=== PATIENT | female | born 1950 | race Caucasian/White ===

== ENCOUNTER → 2016-06-06 | Outpatient (CLI) | payer OTHER ==
[~2016-06-06] MED LIST: AMX500 PO; ATEN-173 PO; CLTP PO; LRT5 PO; MULT-506 PO; OMEG10007 PO; PXL20 PO
== END | disposition home or self-care (01) ==
LOC: C.LABSPEC 15:35
PROVIDERS: ATTEND Podiatrist
DX: L60.0 Ingrowing nail (principal)

== ENCOUNTER → 2016-06-09 | Outpatient (CLI) | payer OTHER ==
[2016-06-09 14:32] LABS: BLOOD UREA NITROGEN 12 mg/dl (7-18); BUN/CREATININE RATIO 15.2 (10-20); CALCIUM 8.4 mg/dl (8.5-10.1); CARBON DIOXIDE 28 mmol/L (21-32); CHLORIDE 104 mmol/L (98-107); CHOLESTEROL 272 mg/dl (0-200); CREATININE 0.77 mg/dl (0.60-1.20); GLUCOSE 102 mg/dl (70-99); SODIUM 140 mmol/L (136-145); TRIGLYCERIDES 213 mg/dl (0-150); VERY LOW DENSITY LIPOPROT CALC 43 mg/dl
[2016-06-09 14:37] LABS: CHOLESTEROL/HDL RATIO 3.5; HDL CHOLESTEROL 78 mg/dl; LDL CHOLESTEROL CALCULATED 151 mg/dl
== END | disposition home or self-care (01) ==
LOC: C.LABPVFM 07:48
PROVIDERS: ATTEND Nurse Practitioner
DX: I10 Essential (primary) hypertension (principal); E78.5 Hyperlipidemia, unspecified

== ENCOUNTER → 2016-07-16 | Outpatient (CLI) | payer OTHER ==
[2016-07-16 17:50] LABS: HEMATOCRIT 39.2 % (37-47); MEAN CELL VOLUME 96.8 fL (80-100); MEAN CORPUSCULAR HEMOGLOBIN 31.6 pg (25-34); MEAN CORPUSCULAR HGB CONC 32.7 g/dl (32-36); MEAN PLATELET VOLUME 10.7 fL (7.4-10.4); PLATELET COUNT 290 K/uL (130-400); RED BLOOD COUNT 4.05 M/uL (4.2-5.4); WHITE BLOOD COUNT 9.67 K/uL (4.8-10.8)
== END | disposition home or self-care (01) ==
LOC: C.LABPVFM 13:40
PROVIDERS: ATTEND Family Medicine
DX: J01.90 Acute sinusitis, unspecified (principal); Z11.59 Encounter for screening for other viral diseases

== ENCOUNTER → 2016-07-28 | Outpatient (CLI) | payer OTHER ==
--- NOTE | 2016-07-28 14:28 | MAMMOGRAPHY REPORT ---
BILATERAL DIGITAL SCREENING MAMMOGRAM WITH CAD: 07/28/2016 CLINICAL HISTORY: Routine screening examination. TECHNIQUE: Bilateral CC, MLO and repeat CC views with the nipples in profile were obtained. Current study was also evaluated with a Computer Aided Detection (CAD) system. COMPARISON: Comparison is made to exams dated: 07/26/2015 mammogram, 01/26/2013 mammogram, 05/01/2014 mammogram, 11/10/2011 mammogram, 08/12/2010 mammogram, and 07/23/2009 mammogram - [facility]. BREAST COMPOSITION: The tissue of both breasts is almost entirely fatty. FINDINGS: There is a possible cluster of linear microcalcifications in the medial left breast. [place] these could represent secretory calcifications, additional spot magnification views are recomm ended. An asymmetry in the anterior right breast, 4 cm posterior to the nipple on the MLO view coul d represent normal overlapping tissue. However, an additional spot compression tomosynthesis view w ith possible ultrasound is recommended. There are a few other scattered stable benign-appearing microcalcifications bilaterally. No other s uspicious mass, architectural distortion or cluster of microcalcifications is seen. IMPRESSION: ACR BI-RADS CATEGORY 0: INCOMPLETE EVALUATION: NEED ADDITIONAL IMAGING EVALUATION The possible cluster of microcalcifications in the medial left breast, and right breast asymmetry ne ed additional imaging evaluation. The patient will be called to schedule an appointment. Approximately 10% of breast cancers are not detected with mammography. A negative mammographic repor t should not delay biopsy if a clinically suggestive mass is present. Laurie Martínez M.D. ay/:07/28/2016 13:41:56 Continuous Improvement Coach: Lary SULTANA(Chong)(M), [facility] letter sent: Addl Imaging 0 BI-RADS Code: ACR BI-RADS Category 0: Incomplete Evaluation: Need Additional Imaging Evaluation
== END | disposition home or self-care (01) ==
LOC: C.MAMM 09:54
PROVIDERS: ATTEND Family Medicine
DX: Z12.31 Encounter for screening mammogram for malignant neoplasm of breast (principal); N64.9 Disorder of breast, unspecified

== ENCOUNTER → 2016-08-05 | Outpatient (CLI) | payer OTHER ==
--- NOTE | 2016-08-05 15:44 | MAMMOGRAPHY REPORT ---
BILATERAL DIGITAL DIAGNOSTIC MAMMOGRAM TOMOSYNTHESIS: 08/05/2016 CLINICAL HISTORY: 66-year-old woman called back from screening mammography for possible architectura l distortion in the right breast on the MLO view, and a possible cluster of microcalcifications in t he medial left breast. TECHNIQUE: Left spot magnification CC and ML; right spot compression MLO 2-D digital and tomosynthes is images were obtained. COMPARISON: Comparison is made to exams dated: 07/28/2016 mammogram, 07/26/2015 mammogram, 05/01/2014 mammogram, 01/26/2013 mammogram, 11/10/2011 mammogram, and 08/12/2010 mammogram - [facility]. BREAST COMPOSITION: The tissue of both breasts is almost entirely fatty. FINDINGS: There is effacement of the questionable architectural distortion in the anterior right eric ast, along the posterior nipple line on the MLO view. This most likely represented a combination of a coursing vessel and fibrolinear markings. Spot magnification views of the left breast demonstrat e a small grouping of linear microcalcifications in the upper inner middle one third of the breast m easuring 6 mm. These calcifications have a rodlike configuration and most likely represent secretor y calcifications on the given that a few other scattered rodlike calcifications are present in the l eft breast. However, given the possible increased number of calcifications in this grouping compari ng back to 2010, a short interval follow-up exam including repeat spot magnification views is recomm ended to ensure stability in 6 months. IMPRESSION: ACR-BI-RADS CATEGORY 3: PROBABLY BENIGN 1. A short interval follow-up left mammogram including repeat spot magnification views is recommend ed to ensure stability of a probable grouping of secretory calcifications in the upper inner quadran t of the left breast. 2. Questionable architectural distortion in the right anterior breast effaces with additional mammo graphic views including tomosynthesis images and most likely represented overlapping fibrolinear mar kings. No further follow-up is needed at this time. These results and recommendations were discussed with the patient and her daughter at the time of th e exam. She tentatively scheduled a follow-up appointment prior to leaving our department. Approximately 10% of breast cancers are not detected with mammography. A negative mammographic repor t should not delay biopsy if a clinically suggestive mass is present. Laurie Martínez M.D. ay/:08/05/2016 14:35:45 Tdp Displays Analyst: Lary Dent, [facility] letter sent: Follow Up Recommended 3 BI-RADS Code: ACR-BI-RADS Category 3: Probably Benign
== END | disposition home or self-care (01) ==
LOC: C.MAMM 12:47
PROVIDERS: ATTEND Family Medicine
DX: R92.0 Mammographic microcalcification found on diagnostic imaging of breast (principal); N64.89 Other specified disorders of breast

== ENCOUNTER → 2016-10-18 | Outpatient (CLI) | payer OTHER ==
[2016-10-18 13:09] LABS: CHOLESTEROL/HDL RATIO 3.3
== END | disposition home or self-care (01) ==
LOC: C.LABPVFM 07:58
PROVIDERS: ATTEND Family Medicine
DX: E78.5 Hyperlipidemia, unspecified (principal)

== ENCOUNTER → 2017-02-04 | Outpatient (CLI) | payer OTHER ==
--- NOTE | 2017-02-04 13:16 | MAMMOGRAPHY REPORT ---
UNILATERAL LEFT DIGITAL DIAGNOSTIC MAMMOGRAM TOMOSYNTHESIS WITH CAD: 02/04/2017 CLINICAL HISTORY: Six-month follow-up of left breast calcifications. TECHNIQUE: Breast tomosynthesis in addition to standard 2D mammography was performed. Current study was also evaluated with a Computer Aided Detection (CAD) system. Left CC and MLO 2-D and tomosynthes is images and spot magnification left CC and ML views were obtained. COMPARISON: Comparison is made to exams dated: 08/05/2016 mammogram, 07/28/2016 mammogram, 07/26/2015 ma mmogram, 05/01/2014 mammogram, 01/26/2013 mammogram, and 11/10/2011 mammogram - [facility]ter. BREAST COMPOSITION: The tissue of the left breast is almost entirely fatty. FINDINGS: Spot magnification views of the left breast demonstrate a small group of rodlike calcifica tions in the left medial breast middle depth. The calcifications are stable compared to spot magnifi cation views dated 08/05/2016 and in retrospect were present on prior exams including the 2013 exam. T he calcifications are benign and compatible with secretory calcifications. The remainder of the left breast is stable compared to prior exams, without suspicious masses, calcif ications, or areas of architectural distortion noted. IMPRESSION: ACR BI-RADS CATEGORY 2: BENIGN The grouped calcifications in the left medial breast are stable compared to the August 2016 exam and a re benign and compatible with secretory calcifications. There is no mammographic evidence of maligna ncy. Return to annual mammogram screening schedule is recommended, due July 2017. The patient has b een verbally notified of the results. Approximately 10% of breast cancers are not detected with mammography. A negative mammographic report should not delay biopsy if a clinically suggestive mass is present. Stephanie Carvajal M.D. ah/:02/04/2017 10:19:43 Hotel Valet Attendant: Mara DEGROOT)(Christina), [facility] letter sent: Normal 1/2 BI-RADS Code: ACR BI-RADS Category 2: Benign
== END | disposition home or self-care (01) ==
LOC: C.MAMM 09:10
PROVIDERS: ATTEND Family Medicine

== ENCOUNTER → 2017-04-29 | Outpatient (CLI) | payer OTHER ==
[2017-04-29 12:40] LABS: BASO % 0.4 %; BASO ABS # 0.03 K/uL (0-0.2); EOS % 2.1 %; EOS ABS # 0.16 K/uL (0-0.5); HEMATOCRIT 39.7 % (37-47); HEMOGLOBIN 12.8 g/dL (12.0-16.0); IG# 0.02 K/uL (0.00-0.02); LYMPH % 28.6 %; LYMPH ABS # 2.14 K/uL (1.2-3.4); MEAN CELL VOLUME 96.6 fL (80-100); MEAN CORPUSCULAR HEMOGLOBIN 31.1 pg (25-34); MEAN CORPUSCULAR HGB CONC 32.2 g/dl (32-36); MEAN PLATELET VOLUME 10.8 fL (7.4-10.4); MONO ABS # 0.45 K/uL (0.11-0.59); NEUT % 62.6 %; NEUT ABS # 4.69 K/uL (1.4-6.5); PLATELET COUNT 283 K/uL (130-400); RED CELL DISTRIBUTION WIDTH CV 13.9 % (11.5-14.5); RED CELL DISTRIBUTION WIDTH SD 48.8 fL (36.4-46.3); WHITE BLOOD COUNT 7.49 K/uL (4.8-10.8)
[2017-04-29 12:45] LABS: ALBUMIN 3.4 gm/dl (3.4-5.0); ALT/SGPT 23 U/L (12-78); BLOOD UREA NITROGEN 12 mg/dl (7-18); CALCIUM 8.6 mg/dl (8.5-10.1); CARBON DIOXIDE 30 mmol/L (21-32); CHOLESTEROL 243 mg/dl (0-200); CREATININE 0.64 mg/dl (0.60-1.20); GLUCOSE 98 mg/dl (70-99); POTASSIUM 3.9 mmol/L (3.5-5.1); SODIUM 139 mmol/L (136-145)
[2017-04-29 12:48] LABS: ALKALINE PHOSPHATASE 70 U/L (45-117); AST/SGOT 16 U/L (15-37); LDL CHOLESTEROL CALCULATED 138 mg/dl; TOTAL PROTEIN 6.9 gm/dl (6.4-8.2)
== END | disposition home or self-care (01) ==
LOC: C.LABPVFM 08:11
PROVIDERS: ATTEND Family Medicine
DX: E78.5 Hyperlipidemia, unspecified (principal); I10 Essential (primary) hypertension

== ENCOUNTER → 2017-05-01 | Outpatient (CLI) | payer OTHER | END | disposition home or self-care (01) | LOC: C.LABPVFM 10:21 | PROVIDERS: ATTEND Family Medicine | DX: M85.80 Other specified disorders of bone density and structure, unspecified site (principal) ==

== ENCOUNTER → 2017-08-12 | Outpatient (CLI) | payer OTHER ==
--- NOTE | 2017-08-13 07:56 | MAMMOGRAPHY REPORT ---
BILATERAL DIGITAL SCREENING MAMMOGRAM TOMOSYNTHESIS WITH CAD: 08/12/2017 CLINICAL HISTORY: Routine screening. Patient has no complaints. TECHNIQUE: Breast tomosynthesis in addition to standard 2D mammography was performed. Current study was also evaluated with a Computer Aided Detection (CAD) system. COMPARISON: Comparison is made to exams dated: 02/04/2017 mammogram, 08/05/2016 mammogram, 07/28/2016 ma mmogram, 07/26/2015 mammogram, 05/01/2014 mammogram, and 01/26/2013 mammogram - [facility] enter. BREAST COMPOSITION: The tissue of both breasts is almost entirely fatty. FINDINGS: There are stable rodlike calcifications in the left breast, in particular a stable grouping of rodlike probable secretory calcifications in the medial left breast. No new suspicious mass, arc hitectural distortion or cluster of microcalcifications is seen. IMPRESSION: ACR BI-RADS CATEGORY 1: NEGATIVE There is no mammographic evidence of malignancy. A 1 year screening mammogram is recommended. The pa tient will receive written notification of the results. Approximately 10% of breast cancers are not detected with mammography. A negative mammographic report should not delay biopsy if a clinically suggestive mass is present. Laurie Martínez M.D. ay/:08/12/2017 15:55:48 Dust Collector Ore Crushing: Lary DEGROOT)(M), [facility] letter sent: Normal 1/2 BI-RADS Code: ACR BI-RADS Category 1: Negative
== END | disposition home or self-care (01) ==
LOC: C.MAMM 15:02
PROVIDERS: ATTEND Family Medicine
DX: Z12.31 Encounter for screening mammogram for malignant neoplasm of breast (principal)

== ENCOUNTER → 2017-09-17 | Outpatient (CLI) | payer OTHER ==
[2017-09-17 12:40] LABS: BASO % 0.4 %; BASO ABS # 0.03 K/uL (0-0.2); EOS % 2.4 %; EOS ABS # 0.16 K/uL (0-0.5); HEMATOCRIT 41.1 % (37-47); HEMOGLOBIN 13.3 g/dL (12.0-16.0); IG# 0.01 K/uL (0.00-0.02); LYMPH ABS # 1.94 K/uL (1.2-3.4); MEAN CELL VOLUME 96.3 fL (80-100); MEAN CORPUSCULAR HEMOGLOBIN 31.1 pg (25-34); MEAN CORPUSCULAR HGB CONC 32.4 g/dl (32-36); MEAN PLATELET VOLUME 10.3 fL (7.4-10.4); MONO ABS # 0.47 K/uL (0.11-0.59); NEUT % 61.1 %; NEUT ABS # 4.08 K/uL (1.4-6.5); PLATELET COUNT 273 K/uL (130-400); RED CELL DISTRIBUTION WIDTH CV 13.6 % (11.5-14.5); RED CELL DISTRIBUTION WIDTH SD 47.8 fL (36.4-46.3); WHITE BLOOD COUNT 6.69 K/uL (4.8-10.8)
[2017-09-17 13:17] LABS: ALBUMIN 3.4 gm/dl (3.4-5.0); ALKALINE PHOSPHATASE 66 U/L (45-117); ALT/SGPT 23 U/L (12-78); AST/SGOT 15 U/L (15-37); BLOOD UREA NITROGEN 14 mg/dl (7-18); CALCIUM 8.4 mg/dl (8.5-10.1); CARBON DIOXIDE 29 mmol/L (21-32); CHOLESTEROL 214 mg/dl (0-200); CREATININE 0.79 mg/dl (0.60-1.20); GLUCOSE 103 mg/dl (70-99); LDL CHOLESTEROL CALCULATED 122 mg/dl; POTASSIUM 4.1 mmol/L (3.5-5.1); SODIUM 139 mmol/L (136-145); TOTAL PROTEIN 7.2 gm/dl (6.4-8.2)
== END | disposition home or self-care (01) ==
LOC: C.LABPVFM 07:39
PROVIDERS: ATTEND Family Medicine
DX: M85.80 Other specified disorders of bone density and structure, unspecified site (principal)

== ENCOUNTER → 2017-09-18 | Outpatient (CLI) | payer OTHER ==
--- NOTE | 2017-09-18 11:12 | DIAGNOSTIC IMAGING REPORT ---
R KNEE 1 OR 2 VIEWS ROUTINE HISTORY: 67 years-old Female RIGHT KNEE PAIN acute right knee pain and swelling COMPARISON: Right knee radiographs 07/18/2015 TECHNIQUE: 2 views of the right knee FINDINGS: Trace knee joint effusion. Bones appear mildly demineralized. Mild tricompartmental osteoarthritis redemonstrated with spurring along the superior patella at the quadriceps insertion site. Mild soft tissue swelling circumferentially without opaque foreign body. IMPRESSION: Mild soft tissue swelling and small joint effusion without acute fracture. The above report was generated using voice recognition software. It may contain grammatical, syntax or spelling errors. Electronically signed by: Da Franklin M.D. 09/18/2017 11:11 AM Dictated Date/Time: 09/18/2017 11:10 AM
== END | disposition home or self-care (01) ==
LOC: C.RADPV 10:45
PROVIDERS: ATTEND Family Medicine
DX: M25.561 Pain in right knee (principal); M25.461 Effusion, right knee

== ENCOUNTER 2022-07-29 23:33 | Inpatient (IN) ==
--- NOTE | 2022-07-29 23:59 | Emergency Department Note ---
History of Present Illness General Chief complaint: Syncope History of Present Illness 72-year-old female presents emergency department via EMS reportedly was taking a bath she stood up and she vomited and then reportedly had a syncopal episode. Patient of note received an IV infusion of platelets today. Patient has a history of chemotherapy for uterine cancer and had low platelets. Patient was given IV platelets. Patient states that the bathtub was not significantly warm. Patient denies chest pain shortness of breath or abdominal pain prior to this event. There were no other mitigating or alleviating factors. She did not hit her head. Home Medications Medication Instructions Recorded Confirmed Type cholecalciferol (vitamin D3) 25 1,000 units PO QPM 11/09/18 07/30/22 History mcg (1,000 unit) capsule calcium carbonate 600 mg calcium 600 mg PO BIDM 02/08/19 07/30/22 History (1,500 mg) tablet digestive no.8-L.acidophilus 50 1 tab PO QPM 06/10/19 07/30/22 History million cell-pectin 100 mg tablet (Digestive Enzyme (acidophilus, pectin, bromelain)) atenolol 25 mg tablet 25 mg PO HS #90 tabs 08/26/21 07/30/22 Rx magnesium oxide 800 mg PO QAM 01/28/22 07/30/22 History fluticasone propionate 50 2 spray intranasal HS #48 grams 02/14/22 07/30/22 Rx mcg/actuation nasal spray,suspension paroxetine HCl 10 mg tablet (Paxil) 10 mg PO QDB #90 tabs 04/08/22 07/30/22 Rx atorvastatin 20 mg tablet 20 mg PO HS #90 tabs 04/29/22 07/30/22 Rx cyanocobalamin (vitamin B-12) 1,000 mcg PO DAILY 06/26/22 07/30/22 History 1,000 mcg tablet (Vitamin B-12) folic acid 400 mcg tablet 0.4 mg PO QPM 06/26/22 07/30/22 History loratadine 10 mg tablet (Claritin) 10 mg PO UD PRN Allergy Symptoms 06/26/22 07/30/22 History omeprazole 20 mg capsule,delayed 20 mg PO QAM 06/26/22 07/30/22 History release acetaminophen 325 mg capsule 325 mg PO QID PRN Pain 07/14/22 07/30/22 History (Tylenol) ondansetron HCl 8 mg tablet 8 mg PO Q8H PRN Nausea 07/29/22 07/30/22 History Allergies Allergy/AdvReac Type Severity Reaction Status Date / Time adhesive tape Allergy Intermediate localized Verified 07/29/22 13:00 skin reddness/irritation latex Allergy Intermediate localized Verified 07/29/22 13:00 skin reddness/irritation aspirin Allergy Mild facial Verified 07/29/22 13:00 flushing ciprofloxacin Allergy Unknown Rash Verified 07/29/22 13:00 Past Med/Surg History Medical History Anxiety Chronic interstitial cystitis Depression GERD (gastroesophageal reflux disease) History of DVT of lower extremity left leg History of endometrial cancer Hx of basal cell carcinoma Hyperlipidemia Hypertension Nausea and vomiting after administration of anesthetic agent Osteopenia Seasonal allergies 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 still inplace. will bring card for current port DOS. Hx of basal cell carcinoma excision Hx of tonsillectomy Port-A-Cath in place (07/02/22) Insertion of Right Internal Jugular Access Port with Fluoroscopy(Right) - Martin Clark DO, FACS Family History Mother Hypertension Malignant neoplasm of urinary bladder Denies family history of Ovarian cancer Prostate cancer Myocardial infarction Breast cancer Colorectal cancer Social History Smoking Status: Former smoker Tobacco Type: Cigarettes Age Started Using Tobacco: 20; Age Quit Using Tobacco: 22; packs per day: 0.5; Cigarettes Per Day: 10 or less; Second Hand Exposure: No; Hx Alcohol Use: Yes (social) Alcohol type: wine Alcohol Intake Frequency: Monthly or Less Hx Substance Use: No Preferred Language: [place]al[place] Communication Ability: Effective Visual Impairment: No Limitations Hearing Ability: Normal Yarn Tester Required: No Beliefs That Will Affect Care: None marital status: Current Living Situation: Family Current Living Situation Comment: DAUGHTER current occupational status: retired How many Children do You have: 2 Feels Safe at Home: Yes Childhood Exposure to Second-Hand Smoke: Yes caffeine: Yes during the past year weight has: remained stable Dental Care, Regularly: Yes Physical Activity Frequency: 3-4 Times per Week Seatbelt Use: always Sunscreen Use: Yes Assistive Devices: Glasses Review of Systems A total of 10 systems reviewed and were otherwise negative Cardiovascular: no chest pain Gastrointestinal: + vomiting; no abdominal pain Physical Exam Vital Signs Vital Signs - 24 hr 07/29/22 23:40 07/29/22 23:48 07/30/22 00:20 Temperature 36.4 C L Temperature Source Oral Pulse Rate 66 64 Pulse Rate from SpO2 Sensor Respiratory Rate 20 Respiratory Effort / Characteristics Non-Labored Spontaneous Respiratory Depth Normal Blood Pressure 136/79 Blood Pressure Mean 98 Pulse Oximetry 100 100 Oxygen Delivery Method Room Air Room Air Sepsis Recent Fever Within 48 Hours No Sepsis New/Unexplained Change in Mental Status No Sepsis Action Taken by Nursing No Action Required 07/29/22 23:41 07/30/22 02:00 Temperature Temperature Source Pulse Rate 66 66 Pulse Rate from SpO2 Sensor 66 64 Respiratory Rate 22 17 Respiratory Effort / Characteristics Respiratory Depth Blood Pressure 156/79 H 170/85 H Blood Pressure Mean 104 113 Pulse Oximetry 100 100 Oxygen Delivery Method Sepsis Recent Fever Within 48 Hours Sepsis New/Unexplained Change in Mental Status Sepsis Action Taken by Nursing GENERAL: Patient is awake alert in no acute distress patient is resting comfortably and showing no signs of anxiety EYES: The conjunctivae are clear. The pupils are round and reactive. EARS, NOSE, MOUTH AND THROAT: The nose is without any evidence of any deformity. Mucous membranes are moist. Tongue is midline. NECK: The neck is nontender and supple. RESPIRATORY: Normal respiratory effort is noted there is no evidence of wheezing rhonchi or rales CARDIOVASCULAR: Regular rate and rhythm noted there no murmurs rubs or gallops normal S1 normal S2. GASTROINTESTINAL: The abdomen is soft. Abdomen is nontender. BACK: No midline tenderness or or step-off noted range of motion in flexion extension as well as rotation no signs of muscle spasm noted MUSCULOSKELETAL/EXTREMITIES: There is no evidence of gross deformity full range of motion is noted in the hips and shoulders. SKIN: There is no obvious evidence of any rash. There are no petechiae, pallor or cyanosis noted. NEUROLOGIC: Patient is awake alert and oriented x3 strength is symmetric; GCS of 15, nonfocal Course Reevaluation(s) Reevaluation #1: Patient is resting no distress on repeat examination. Patient will be admitted for syncope Time: 03:06 Consultations Consultation #1: Case was discussed with the [facility] for admission for syncope Time: 03:06 Medical Decision Making Medical Records Attestation: I reviewed the patient's medical records. Home Medications Current Medication List: was personally reviewed by me Laboratory Data Attestation: I reviewed the patient's lab results. Patient is pancytopenic 07/30/22 00:18 07/30/22 00:18 Lab Results 07/30/22 07/30/22 07/30/22 Range/Units 00:18 00:18 01:55 WBC 4.01 L (4.8-10.8) K/ul RBC 2.36 L (4.20-5.40) M/uL Hgb 7.6 L (12.0-16.0) g/dl Hct 23.0 L (37.0-47.0) % MCV 97.5 (80.0-100.0) fL MCH 32.2 (25.0-34.0) pg MCHC 33.0 (32.0-36.0) g/dL RDW Std Deviation 42.5 (36.4-46.3) fL RDW Coeff of Elie 12.0 (11.5-14.5) % Plt Count 23 L* D (130-400) K/uL MPV 10.4 (9.4-12.4) fL Immature Gran % (Auto) 1.5 % Neut % (Auto) 54.4 % Lymph % (Auto) 35.9 % [place] % (Auto) 5.5 % Eos % (Auto) 2.2 % Baso % (Auto) 0.5 % Neut # (Auto) 2.18 (1.40-6.50) K/uL Lymph # (Auto) 1.44 (1.2-3.4) K/uL [place] # (Auto) 0.22 (0.11-0.59) K/uL Eos # (Auto) 0.09 (0-0.50) K/uL Baso # (Auto) 0.02 (0-0.2) K/uL Immature Gran # (Auto) 0.06 (0.01-0.20) K/uL Absolute Nucleated RBC 0.03 (0-0.12) K/uL Nucleated RBC % (auto) 0.7 % Dohle Bodies 1+ Sodium 138 (136-145) mmol/L Potassium 3.6 (3.5-5.1) mmol/L Chloride 102 (98-107) mmol/L Carbon Dioxide 27 (21-32) mmol/L Anion Gap 9 (3-11) BUN 30 H (6-23) mg/dl Creatinine 1.17 (0.6-1.2) mg/dl Est Cr Clr Drug Dosing 44.0 ml/min Est GFR ( Amer) 53.9 ml/min Est GFR (Non-Af Amer) 46.5 ml/min BUN/Creatinine Ratio 25.6 H (10-20) Glucose 96 (70-99(Fasting)) mg/dl Calcium 8.4 L (8.6-10.3) mg/dl Magnesium 1.3 L (1.7-2.4) mg/dl Total Bilirubin 0.3 (0.2-1.0) mg/dl AST 22 (13-39) U/L ALT 65 H (7-52) U/L Alkaline Phosphatase 86 (34-104) U/L Total Protein 6.4 (6.0-8.3) gm/dl Albumin 3.5 (3.4-5.0) gm/dl Globulin 2.9 (2.5-4.0) gm/dl Albumin/Globulin Ratio 1.2 (0.9-2) SARS-CoV-2, RNA, NAAT NEGATIVE (NEGATIVE) Imaging Data Attestation: I personally reviewed and interpreted this imaging study as follows: My Impression: CT of the brain interpreted by me as negative for intracranial hemorrhage Radiologist's Impression: Head CT 07/29/22 23:55 Exam(s): CT HEAD Without Contrast EXAM: CT Head Without Intravenous Contrast CLINICAL HISTORY: Reason for exam: syncope. TECHNIQUE: Axial computed tomography images of the head/brain without intravenous contrast. Automated exposure control was utilized for the study. A dose lowering technique was utilized adhering to the principles of ALARA. COMPARISON: No relevant prior studies available. FINDINGS: Brain: The cerebral and cerebellar sulci are mildly prominent consistent with mild brain atrophy. There are a few areas of decreased attenuation in the deep cerebral white matter consistent with mild small vessel ischemic/degenerative changes. No hemorrhage. Ventricles: Unremarkable. No ventriculomegaly. Bones/joints: Unremarkable. No acute fracture. Soft tissues: Right prefrontal dermal calcification. Vasculature: Atherosclerotic disease. Sinuses: Unremarkable as visualized. No acute sinusitis. Mastoid air cells: Unremarkable as visualized. No mastoid effusion. IMPRESSION: No acute findings in the head/brain. Electronically signed by: Chandu Gil MD 07/30/22 01:15 AM ECG Data Attestation: I personally reviewed and interpreted this ECG as follows: Additional Comments: EKG interpreted by me normal sinus rhythm versus atrial fibrillation rate of 73 poor R wave progression in precordial poor baseline no obvious ST segment elevation or depression normal axis Telemetry was ordered by me, interpreted as sinus rhythm rate of 70 MDM Narrative Medical decision making differential diagnosis includes syncope, near syncope, c ardiac dysrhythmia, anemia, electrolyte abnormality, neurogenic syncope Plan is to check labs, EKG, CT EMS medical records were reviewed by me External medical records were reviewed by me Patient has pancytopenia, patient has syncope tonight. Patient will be admitted for further evaluation of syncope and pancytopenia Impression & Plan Syncope, Anemia, Thrombocytopenia Discharge Plan Visit Data Chief Complaint: Syncope ED Provider: Martin Villalobos Discharge Problem: Syncope, Anemia, Thrombocytopenia Patient Disposition: Admitted As Inpatient Forms Stand Alone Forms: My [facility] Prescriptions Prescriptions: No Action cholecalciferol (vitamin D3) 1,000 unit capsule 1,000 units PO QPM atenolol 25 mg tablet 25 mg PO HS Qty: 90 3RF fluticasone propionate 50 mcg/actuation spray,suspension 2 spray INTNAS HS Qty: 48 3RF paroxetine HCl [Paxil] 10 mg tablet 10 mg PO QDB Qty: 90 3RF atorvastatin 20 mg tablet 20 mg PO HS Qty: 90 3RF magnesium oxide 400 mg magnesium capsule 800 mg PO QAM acetaminophen [Tylenol] 325 mg capsule 325 mg PO QID PRN (Reason: Pain) calcium carbonate 600 mg calcium (1,500 mg) tablet 600 mg PO BIDM Digestive Enzyme (acidoph,pec) 50 million cell-100 mg Tablet 1 tab PO QPM ondansetron HCl [Zofran] 8 mg Tablet 8 mg PO Q8H PRN (Reason: Nausea) cyanocobalamin (vitamin B-12) [Vitamin B-12] 1,000 mcg Tablet 1,000 mcg PO DAILY folic acid 400 mcg Tablet 0.4 mg PO QPM omeprazole 20 mg capsule,delayed release(DR/EC) 20 mg PO QAM loratadine [Claritin] 10 mg Tablet 10 mg PO UD PRN (Reason: Allergy Symptoms) Referrals Referrals: Kasey Mendez MD [Primary Care Provider] -
[2022-07-30 00:56] LABS: Albumin Globulin Ratio 1.2 (0.9-2); Albumin Level 3.5 gm/dl (3.4-5.0); BUN Creatinine Ratio 25.6 (10-20); Bilirubin,Total 0.3 mg/dl (0.2-1.0); Calcium 8.4 mg/dl (8.6-10.3); Est GFR (African American) 53.9 ml/min; Est GFR (Non-African American) 46.5 ml/min; Globulin 2.9 gm/dl (2.5-4.0); Magnesium 1.3 mg/dl (1.7-2.4); Potassium 3.6 mmol/L (3.5-5.1); Total Protein 6.4 gm/dl (6.0-8.3)
[2022-07-30 01:07] LABS: Basophils # (auto) 0.02 K/uL (0-0.2); Basophils % (auto) 0.5 %; Dohle Bodies 1+; Eosinophils # (auto) 0.09 K/uL (0-0.50); Eosinophils % (auto) 2.2 %; Hemoglobin 7.6 g/dl (12.0-16.0); Immature Granulocytes # (auto) 0.06 K/uL (0.01-0.20); Immature Granulocytes % (auto) 1.5 %; Lymphocytes # (auto) 1.44 K/uL (1.2-3.4); Lymphocytes % (auto) 35.9 %; Mean Corpuscular Hemoglobin 32.2 pg (25.0-34.0); Mean Corpuscular Volume 97.5 fL (80.0-100.0); Mean Platelet Volume 10.4 fL (9.4-12.4); Monocytes # (auto) 0.22 K/uL (0.11-0.59); Monocytes % (auto) 5.5 %; Neutrophils # (auto) 2.18 K/uL (1.40-6.50); Neutrophils % (auto) 54.4 %; Nucleated RBC # (auto) 0.03 K/uL (0-0.12); Nucleated RBC % (auto) 0.7 %; Platelet Count 23 K/uL (130-400); RDW Standard Deviation 42.5 fL (36.4-46.3); Red Blood Count 2.36 M/uL (4.20-5.40); White Blood Count 4.01 K/ul (4.8-10.8)
--- NOTE | 2022-07-30 01:16 | CT Scan Report ---
Exam(s): CT HEAD Without Contrast EXAM: CT Head Without Intravenous Contrast CLINICAL HISTORY: Reason for exam: syncope. TECHNIQUE: Axial computed tomography images of the head/brain without intravenous contrast. Automated exposure control was utilized for the study. A dose lowering technique was utilized adhering to the principles of ALARA. COMPARISON: No relevant prior studies available. FINDINGS: Brain: The cerebral and cerebellar sulci are mildly prominent consistent with mild brain atrophy. There are a few areas of decreased attenuation in the deep cerebral white matter consistent with mild small vessel ischemic/degenerative changes. No hemorrhage. Ventricles: Unremarkable. No ventriculomegaly. Bones/joints: Unremarkable. No acute fracture. Soft tissues: Right prefrontal dermal calcification. Vasculature: Atherosclerotic disease. Sinuses: Unremarkable as visualized. No acute sinusitis. Mastoid air cells: Unremarkable as visualized. No mastoid effusion. IMPRESSION: No acute findings in the head/brain. Electronically signed by: Chandu Gil MD 07/30/22 01:15 AM
--- NOTE | 2022-07-30 03:52 | History & Physical Report ---
Date of Service July 30, 2022 Assessment & Plan (1) Syncope: Plan: 72 yo female with PMHx of uterine cancer s/p hysterectomy, depression, GERD, hypomagnesemia, HTN, and HLD presents to clinic for syncopal episode. #Syncope -presented with syncopal episode on commode in her bathtub with weakness and vomiting. Patient feeling better since arrival. Unclear etiology at this time. Afebrile, vitals normal. Tele showing NSR. Suspect vasovagal versus symptomatic anemia versus hypomagnesemia versus dehydration. -CT head: no acute stroke, unremarkable -Echo (06/19/22): EF 60-65%, mild LVH -Hgb 7.6. Was 10.1 on 07/01/22. -orthostatics pending -type and screen, H&H in am -monitor on tele #Symptomatic Anemia -Hgb 7.6. Was 10.1 on 07/01/22. -It appears hemoglobin started downtrending upon initiation of systemic chemo which was started a few weeks ago. Pt denies any other signs of active bleeding. BMs normal. She does state she has been due for a screening colonoscopy with h/o polyps. -FOBT ordered -consider CT A/P to r/o intraperitoneal bleed due to abrupt drop in hgb over the last month. However, it is more likely decrease due to chemo. Given pt history, will be cautious of exposing her to further radiation. If concern for bleed, would consider IVC filter since patient has new onset DVT as below. -type and screen, H&H in am #Hypomagnesemia, acute on chronic -mag 1.3 on admission. Baseline ~1.5 -replenished with 2g IV -pt chronically on PPI for GERD. Will cont. PPI for now however would consider changing to famotidine with chronic hypomagnesemia. -cont. daily magnesium oral supplement #H/o uterine cancer -diagnosed 3 years ago with subsequent intraperitoneal chemo and hysterectomy. Was on maintenance Zejula. More recently surveillance labs and PET scan discovered new intraperitoneal lesions. Started on systemic chemo 3 weeks ago. Port-a-cath present. -follows with [facility] heme/onc. Pt did make oncologist aware of current situation and told her they would follow up with her today. Heme/onc have been following her labs. Due to immunosuppression, she has been thrombocytopenic and now s/p platelet transfusion (07/29/22). As above, it appears acute on chronic anemia due to recent chemotherapy as well. -consider heme/onc consult or at the least follow up with [facility] heme/onc. #DVT -new onset last week in L lower extremity found in outpatient setting -initially on Eliquis 5mg bid which was lowered to 2.5mg bid by prescribing provider due to thrombocytopenia. Prior to her platelet transfusion, was advised to hold eliquis until seen by heme/onc later this week. -will hold eliquis for now -consider obtaining factor Xa DOAC level -peripheral smear pending to r/o hemolysis #GERD -as above -cont. PPI, consider change to famotidine due to chronic hypomagnesemia #Depression -cont. paxil #HLD -cont. statin #HTN -cont. atenolol DVT ppx: ambulation, hold eliquis FEN/GI: regular Code Status: conditional Dispo: PCU (2) Thrombocytopenia: (3) Anemia: (4) Depression: (5) Hyperlipidemia: (6) Benign essential hypertension: (7) Hypomagnesemia: (8) Uterine cancer: (9) Port-A-Cath in place: History of Present Illness Chief Complaint: Syncope Primary Care Provider: Kasey Mendez MD 72 yo female with PMHx of uterine cancer s/p hysterectomy, depression, GERD, hypomagnesemia, HTN, and HLD presents to clinic for syncopal episode. Last night patient was sitting on the commode in her bathtub and started feeling weak and subsequently passed out falling forward. When she was found shortly after by her daughter she was noted to be laying in her own vomit. She did not hit her head. Denies prodrome. Other than ongoing weakness patient denies any fevers, chills, chest pain, shortness of breath, abdominal pain, nausea, vomiting, diarrhea, constipation, melena, dysuria. BMs have been regular without blood. Of note, yesterday afternoon patient received a platelet infusion at the [facility]. She has received whole blood transfusions in the past but this was her first only platelet infusion. Patient has an extensive medical history and follows with [facility] heme-onc. A few years ago she was diagnosed with uterine cancer and underwent hysterectomy with intraperitoneal chemotherapy. She was then on maintenance Zejula for a couple of years until surveillance labs started elevating. It was more recently found that she had cancerous lesions in the pelvic region and was advised to start systemic chemotherapy a few weeks ago. Her first week of chemo included a combo of carboplatin and Doxil, however, she had an adverse reaction to the Doxil so the medication was switched to a different medication that is not known at this time. Last week patient was also diagnosed with a DVT in her lower left extremity and was placed on Eliquis which was held a couple of days ago due to her platelet infusion yesterday. She was advised by her heme-oncologist to hold Eliquis until seen by them later this week. Allergies Allergy/AdvReac Type Severity Reaction Status Date / Time adhesive tape Allergy Intermediate localized Verified 07/29/22 13:00 skin reddness/irritation latex Allergy Intermediate localized Verified 07/29/22 13:00 skin reddness/irritation aspirin Allergy Mild facial Verified 07/29/22 13:00 flushing ciprofloxacin Allergy Unknown Rash Verified 07/29/22 13:00 Home Medications Medication Instructions Recorded Confirmed Type cholecalciferol (vitamin D3) 25 1,000 units PO QPM 11/09/18 07/30/22 History mcg (1,000 unit) capsule calcium carbonate 600 mg calcium 600 mg PO BIDM 02/08/19 07/30/22 History (1,500 mg) tablet digestive no.8-L.acidophilus 50 1 tab PO QPM 06/10/19 07/30/22 History million cell-pectin 100 mg tablet (Digestive Enzyme (acidophilus, pectin, bromelain)) atenolol 25 mg tablet 25 mg PO HS #90 tabs 08/26/21 07/30/22 Rx magnesium oxide 800 mg PO QAM 01/28/22 07/30/22 History fluticasone propionate 50 2 spray intranasal HS #48 grams 02/14/22 07/30/22 Rx mcg/actuation nasal spray,suspension paroxetine HCl 10 mg tablet (Paxil) 10 mg PO QDB #90 tabs 04/08/22 07/30/22 Rx atorvastatin 20 mg tablet 20 mg PO HS #90 tabs 04/29/22 07/30/22 Rx cyanocobalamin (vitamin B-12) 1,000 mcg PO DAILY 06/26/22 07/30/22 History 1,000 mcg tablet (Vitamin B-12) folic acid 400 mcg tablet 0.4 mg PO QPM 06/26/22 07/30/22 History loratadine 10 mg tablet (Claritin) 10 mg PO UD PRN Allergy Symptoms 06/26/22 07/30/22 History omeprazole 20 mg capsule,delayed 20 mg PO QAM 06/26/22 07/30/22 History release acetaminophen 325 mg capsule 325 mg PO QID PRN Pain 07/14/22 07/30/22 History (Tylenol) ondansetron HCl 8 mg tablet 8 mg PO Q8H PRN Nausea 07/29/22 07/30/22 History Past Med/Surg History Medical History Anxiety Chronic interstitial cystitis Depression GERD (gastroesophageal reflux disease) History of DVT of lower extremity left leg History of endometrial cancer Hx of basal cell carcinoma Hyperlipidemia Hypertension Nausea and vomiting after administration of anesthetic agent Osteopenia Seasonal allergies 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 still inplace. will bring card for current port DOS. Hx of basal cell carcinoma excision Hx of tonsillectomy Port-A-Cath in place (07/02/22) Insertion of Right Internal Jugular Access Port with Fluoroscopy(Right) - Martin Clark DO, FACS Family History Mother Hypertension Malignant neoplasm of urinary bladder Denies family history of Ovarian cancer Prostate cancer Myocardial infarction Breast cancer Colorectal cancer Social History Smoking Status: Never smoker Tobacco Type: Cigarettes Age Started Using Tobacco: 20; Age Quit Using Tobacco: 22; packs per day: 0.5; Cigarettes Per Day: 10 or less; Second Hand Exposure: No; Hx Alcohol Use: No Hx Substance Use: No Preferred Language: Telugu Communication Ability: Effective Visual Impairment: No Limitations Hearing Ability: Normal Clinical Operations Leader Required: No Beliefs That Will Affect Care: None marital status: Current Living Situation: Family Current Living Situation Comment: Lives with daughter Gardenia (JUD) current occupational status: retired How many Children do You have: 2 Feels Safe at Home: Yes Safety Concerns: Feels Safe At This Time Childhood Exposure to Second-Hand Smoke: Yes caffeine: Yes during the past year weight has: remained stable Dental Care, Regularly: Yes Physical Activity Frequency: 3-4 Times per Week Seatbelt Use: always Sunscreen Use: Yes Assistive Devices: None Review of Systems Review of Systems: All systems reviewed & are unremarkable except as noted in HPI & below Physical Exam Physical Exam: Constitutional: in no acute distress, pleasant. AOx3. Vitals as above. HEENT: No scleral injection or discharge. Moist mucous membranes. Neck: Supple without lymphadenopathy or thyromegaly. Trachea midline. Lungs: Clear to auscultation bilaterally with good effort. Cardiac: Regular rate and rhythm. No murmurs. No extremity edema. 2+peripheral pulses. Abdomen: Bowel sounds present. Soft, nontender, and nondistended.No guarding. No hepatosplenomegaly. MSK: No cyanosis or clubbing. Extremities motor strength 5/5. Skin: No rashes, warm, dry. Port-a-cath present L chest wall. Neurologic: No focal deficits Results & Data Results & Data Vital Signs (Past 12 Hours) Vital Signs Temp Pulse Resp BP Pulse Ox O2 Del Method 07/30/22 03:39 70 07/30/22 02:00 66 17 170/85 H 100 07/29/22 23:41 66 22 156/79 H 100 07/30/22 00:20 100 Room Air 07/29/22 23:48 36.4 C L 64 20 136/79 100 Room Air 07/29/22 23:40 66 Laboratory Results Laboratory Results WBC 4.01 K/ul (4.8-10.8) L 07/30/22 00:18 RBC 2.36 M/uL (4.20-5.40) L 07/30/22 00:18 Hgb 7.6 g/dl (12.0-16.0) L 07/30/22 00:18 Hct 23.0 % (37.0-47.0) L 07/30/22 00:18 MCV 97.5 fL (80.0-100.0) 07/30/22 00:18 MCH 32.2 pg (25.0-34.0) 07/30/22 00:18 MCHC 33.0 g/dL (32.0-36.0) 07/30/22 00:18 RDW Std Deviation 42.5 fL (36.4-46.3) 07/30/22 00:18 RDW Coeff of Elie 12.0 % (11.5-14.5) 07/30/22 00:18 Plt Count 23 K/uL (130-400) L* D 07/30/22 00:18 MPV 10.4 fL (9.4-12.4) 07/30/22 00:18 Immature Gran % (Auto) 1.5 % 07/30/22 00:18 Neut % (Auto) 54.4 % 07/30/22 00:18 Lymph % (Auto) 35.9 % 07/30/22 00:18 [place] % (Auto) 5.5 % 07/30/22 00:18 Eos % (Auto) 2.2 % 07/30/22 00:18 Baso % (Auto) 0.5 % 07/30/22 00:18 Neut # (Auto) 2.18 K/uL (1.40-6.50) 07/30/22 00:18 Lymph # (Auto) 1.44 K/uL (1.2-3.4) 07/30/22 00:18 [place] # (Auto) 0.22 K/uL (0.11-0.59) 07/30/22 00:18 Eos # (Auto) 0.09 K/uL (0-0.50) 07/30/22 00:18 Baso # (Auto) 0.02 K/uL (0-0.2) 07/30/22 00:18 Immature Gran # (Auto) 0.06 K/uL (0.01-0.20) 07/30/22 00:18 Absolute Nucleated RBC 0.03 K/uL (0-0.12) 07/30/22 00:18 Nucleated RBC % (auto) 0.7 % 07/30/22 00:18 Dohle Bodies 1+ 07/30/22 00:18 Sodium 138 mmol/L (136-145) 07/30/22 00:18 Potassium 3.6 mmol/L (3.5-5.1) 07/30/22 00:18 Chloride 102 mmol/L (98-107) 07/30/22 00:18 Carbon Dioxide 27 mmol/L (21-32) 07/30/22 00:18 Anion Gap 9 (3-11) 07/30/22 00:18 BUN 30 mg/dl (6-23) H 07/30/22 00:18 Creatinine 1.17 mg/dl (0.6-1.2) 07/30/22 00:18 Est Cr Clr Drug Dosing 44.0 ml/min 07/30/22 00:18 Est GFR ( Amer) 53.9 ml/min 07/30/22 00:18 Est GFR (Non-Af Amer) 46.5 ml/min 07/30/22 00:18 BUN/Creatinine Ratio 25.6 (10-20) H 07/30/22 00:18 Glucose 96 mg/dl (70-99(Fasting)) 07/30/22 00:18 Calcium 8.4 mg/dl (8.6-10.3) L 07/30/22 00:18 Magnesium 1.3 mg/dl (1.7-2.4) L 07/30/22 00:18 Total Bilirubin 0.3 mg/dl (0.2-1.0) 07/30/22 00:18 AST 22 U/L (13-39) 07/30/22 00:18 ALT 65 U/L (7-52) H 07/30/22 00:18 Alkaline Phosphatase 86 U/L (34-104) 07/30/22 00:18 Total Protein 6.4 gm/dl (6.0-8.3) 07/30/22 00:18 Albumin 3.5 gm/dl (3.4-5.0) 07/30/22 00:18 Globulin 2.9 gm/dl (2.5-4.0) 07/30/22 00:18 Albumin/Globulin Ratio 1.2 (0.9-2) 07/30/22 00:18 SARS-CoV-2, RNA, NAAT NEGATIVE (NEGATIVE) 07/30/22 01:[address] 07/29/22 23:55 Exam(s): CT HEAD Without Contrast EXAM: CT Head Without Intravenous Contrast CLINICAL HISTORY: Reason for exam: syncope. TECHNIQUE: Axial computed tomography images of the head/brain without intravenous contrast. Automated exposure control was utilized for the study. A dose lowering technique was utilized adhering to the principles of ALARA. COMPARISON: No relevant prior studies available. FINDINGS: Brain: The cerebral and cerebellar sulci are mildly prominent consistent with mild brain atrophy. There are a few areas of decreased attenuation in the deep cerebral white matter consistent with mild small vessel ischemic/degenerative changes. No hemorrhage. Ventricles: Unremarkable. No ventriculomegaly. Bones/joints: Unremarkable. No acute fracture. Soft tissues: Right prefrontal dermal calcification. Vasculature: Atherosclerotic disease. Sinuses: Unremarkable as visualized. No acute sinusitis. Mastoid air cells: Unremarkable as visualized. No mastoid effusion. IMPRESSION: No acute findings in the head/brain. Electronically signed by: Chandu Gil MD 07/30/22 01:15 AM Code Status & VTE Plan VTE Prophylaxis Plan VTE Prophylaxis will be ordered: Yes Supervising Physician Co-Signing Physician Notes Attending addendum: I have physically seen this patient, have supervised the medical residents activities, and agree with the H&P unless as otherwise noted. Assessment and Plan: Syncope- Multifactorial issues to consider including but not limited to: Anemia due to blood loss due to being on anticoagulation, anemia due to chemotherapy, chemotherapy itself, underlying cancer with mets, others- CT head negative for acute event Hemoglobin of 7.6, is down from most recent on 07/01/2022 of 10.1 Anemia- Hemoglobin 7.6 with patient 10.1 on 07/01/2022 Hemoccult stools Hold anticoagulation overnight Serial H&H's Suspect declining hemoglobin is most likely related to chemotherapy have been begun recently Consider retroperitoneal bleed, would order CT abdomen pelvis if drop in hemoglobin is progressive and if there is no signs of external bleeding Peripheral smear Type and screen, but did not actively transfuse at this time Thrombocytopenia- Patient received a transfusion in outpatient setting earlier today Follow tumor laboratories Stage III mixed mllerian uterus tumor- Undergoing chemotherapy with oncology Bilateral hydronephrosis- Has been seen by urology recently, with right side stable and left a little worse, but since there were no immediate symptoms, no stenting was felt to be of benefit Remaining orders and notations as noted Resident Activity Tracking Resident Involvement: Resident Care Provided Care Provided: [facility]
[2022-07-30] MEDS: MAGNESIUM SULFATE / D5W 1 GM/100 ML BAG IV SCH ×2 (04:07→06:11)
[2022-07-30] MEDS ORDERED: ONDANSETRON 4 MG OD TAB PO PRN (04:15)
[2022-07-30] MEDS ORDERED: ACETAMINOPHEN 325 MG TAB PO PRN (04:15)
[2022-07-30 05:26] LABS: Basophils # (auto) 0.03 K/uL (0-0.2); Basophils % (auto) 0.7 %; Eosinophils # (auto) 0.07 K/uL (0-0.50); Eosinophils % (auto) 1.6 %; Hematocrit (blood only) 23.6 % (37.0-47.0); Hemoglobin 7.7 g/dl (12.0-16.0); Immature Granulocytes # (auto) 0.08 K/uL (0.01-0.20); Immature Granulocytes % (auto) 1.8 %; Lymphocytes # (auto) 1.34 K/uL (1.2-3.4); Lymphocytes % (auto) 30.7 %; Mean Corpuscular Hgb Conc 32.6 g/dL (32.0-36.0); Mean Corpuscular Volume 97.9 fL (80.0-100.0); Mean Platelet Volume 10.8 fL (9.4-12.4); Monocytes % (auto) 6.9 %; Neutrophils # (auto) 2.54 K/uL (1.40-6.50); Neutrophils % (auto) 58.3 %; Nucleated RBC # (auto) 0.03 K/uL (0-0.12); Nucleated RBC % (auto) 0.7 %; Platelet Count 28 K/uL (130-400); RBC Morphology Unremarkable; RDW Coefficient of Variation 11.9 % (11.5-14.5); RDW Standard Deviation 42.9 fL (36.4-46.3); Red Blood Count 2.41 M/uL (4.20-5.40); White Blood Count 4.36 K/ul (4.8-10.8)
[2022-07-30] MEDS ORDERED: PARoxetine HCL 10 MG TAB PO SCH (07:30)
[2022-07-30] MEDS ORDERED: CALCIUM CARBONATE 1250MG TAB PO SCH (08:00)
--- NOTE | 2022-07-30 08:24 | Hospitalist Progress Note ---
Date of Service July 30, 2022 Assessment & Plan (1) Syncope: Plan: 72 yo female with PMHx of uterine cancer s/p hysterectomy, depression, GERD, hypomagnesemia, HTN, and HLD presents to clinic for syncopal episode. #Syncope -presented with syncopal episode on commode in her bathtub with weakness and vomiting. Patient feeling better since arrival. Unclear etiology at this time. Afebrile, vitals normal. Tele showing NSR. Suspect vasovagal versus symptomatic anemia versus hypomagnesemia versus dehydration. -CT head: no acute stroke, unremarkable -Echo (06/19/22): EF 60-65%, mild LVH -Hgb 7.6. Was 10.1 on 07/01/22. -orthostatics pending -type and screen, H&H in am -monitor on tele #Symptomatic Anemia -Hgb 7.6. Was 10.1 on 07/01/22. -It appears hemoglobin started downtrending upon initiation of systemic chemo which was started a few weeks ago. Pt denies any other signs of active bleeding. BMs normal. She does state she has been due for a screening colonoscopy with h/o polyps. -FOBT ordered -consider CT A/P to r/o intraperitoneal bleed due to abrupt drop in hgb over the last month. However, it is more likely decrease due to chemo. Given pt history, will be cautious of exposing her to further radiation. If concern for bleed, would consider IVC filter since patient has new onset DVT as below. -type and screen, H&H in am #Hypomagnesemia, acute on chronic -mag 1.3 on admission. Baseline ~1.5 -replenished with 2g IV -pt chronically on PPI for GERD. Will cont. PPI for now however would consider changing to famotidine with chronic hypomagnesemia. -cont. daily magnesium oral supplement #H/o uterine cancer -diagnosed 3 years ago with subsequent intraperitoneal chemo and hysterectomy. Was on maintenance Zejula. More recently surveillance labs and PET scan discovered new intraperitoneal lesions. Started on systemic chemo 3 weeks ago. Port-a-cath present. -follows with [facility] heme/onc. Pt did make oncologist aware of current situation and told her they would follow up with her today. Heme/onc have been following her labs. Due to immunosuppression, she has been thrombocytopenic and now s/p platelet transfusion (07/29/22). As above, it appears acute on chronic anemia due to recent chemotherapy as well. -consider heme/onc consult or at the least follow up with [facility] heme/onc. #DVT -new onset last week in L lower extremity found in outpatient setting -initially on Eliquis 5mg bid which was lowered to 2.5mg bid by prescribing provider due to thrombocytopenia. Prior to her platelet transfusion, was advised to hold eliquis until seen by heme/onc later this week. -will hold eliquis for now -consider obtaining factor Xa DOAC level -peripheral smear pending to r/o hemolysis #GERD -as above -cont. PPI, consider change to famotidine due to chronic hypomagnesemia #Depression -cont. paxil #HLD -cont. statin #HTN -cont. atenolol DVT ppx: ambulation, hold eliquis FEN/GI: regular Code Status: conditional Dispo: PCU (2) Thrombocytopenia: (3) Anemia: (4) Depression: (5) Hyperlipidemia: (6) Benign essential hypertension: (7) Hypomagnesemia: (8) Uterine cancer: (9) Port-A-Cath in place: Admission and Anticipated Discharge Date Admission Date: July 30, 2022 Results & Data Results & Data Vital Signs (Past 12 Hours) Vital Signs Temp Pulse Pulse Resp BP BP Pulse Ox 07/30/22 07:03 66 07/30/22 05:09 64 15 164/98 H 99 07/30/22 03:39 70 07/30/22 02:00 66 17 170/85 H 100 07/29/22 23:41 66 22 156/79 H 100 07/30/22 00:20 100 07/29/22 23:48 36.4 C L 64 20 136/79 100 07/29/22 23:40 66 O2 Del Method 07/30/22 07:03 07/30/22 05:09 Room Air 07/30/22 03:39 07/30/22 02:00 07/29/22 23:41 07/30/22 00:20 Room Air 07/29/22 23:48 Room Air 07/29/22 23:40
[2022-07-30] MEDS ORDERED: MAGNESIUM OXIDE 400 MG TAB PO SCH (09:00)
[2022-07-30] MEDS ORDERED: CYANOCOBALAMIN (B-12) 500 MCG TABLET PO SCH (09:00)
[2022-07-30] MEDS ORDERED: PANTOprazole 40 MG TAB PO SCH (09:00)
[2022-07-30] MEDS ORDERED: OPTIRAY 320 500ml IV ONE (11:42)
--- NOTE | 2022-07-30 12:31 | CT Scan Report ---
CHEST CTA for PULMONARY ARTERIES CT DOSE: 397.18 mGycm HISTORY: Syncope. Assess for pulmonary embolus. TECHNIQUE: Multiaxial CT images of the chest were performed following the intravenous administration of contrast to evaluate the pulmonary arteries. Maximal intensity projection images were also obtaine d. A dose lowering technique was utilized adhering to the principles of ALARA. COMPARISON STUDY: Chest CT 03/13/2022. FINDINGS: Normal caliber thoracic aorta with no evidence for a dissection. The heart is top normal in size. There is a small right pleural effusion. No pericardial effusion. No filling defects within th e pulmonary arteries to suggest a pulmonary embolus. Mild elevation of the right hemidiaphragm, uncha nged. The visualized liver, spleen, and adrenal glands unremarkable. Bilateral anterior diaphragmatic lymph nodes have increased in size in the interval with the dominant lymph node on the right measuri ng 2.4 x 1.0 cm. These likely represent metastatic disease. There is a single mildly enlarged right i nternal mammary lymph node which has slightly increased in size. This measures 9 mm, previous measuri ng 7 mm. This also likely represents a focus of metastatic disease. No hilar lymphadenopathy. Normal esophagus. No suspicious lytic or blastic osseous lesions. A right jugular Port-A-Cath terminates in the distal SVC. No pneumothorax. The central airways are patent. Right basilar linear densities favor subsegmental atelectasis. Otherwise, no focal lung consolidations to suggest a pneumonia. No evidenc e for pulmonary edema. Stable mild nodular thickening along the right minor fissure. This is likely b enign. IMPRESSION: 1. No evidence for a pulmonary embolus. 2. Interval development of a small right pleural effusion. 3. Increase in size in the anterior diaphragmatic lymph nodes and a single right internal mammary lym ph node consistent with progressive metastatic disease. ACT 112: Negative or not required by law. Electronically signed by: Romie Floyd M.D. 07/30/2022 12:30 PM
--- NOTE | 2022-07-30 13:31 | Electrocardiogram Report ---
Test Reason : Blood Pressure : / mmHG Vent. Rate : 073 BPM Atrial Rate : 067 BPM P-R Int : 000 ms QRS Dur : 076 ms QT Int : 420 ms P-R-T Axes : 000 035 030 degrees QTc Int : 462 ms Poor data quality, interpretation may be adversely affected Atrial fibrillation Abnormal ECG When compared with ECG of 23-JUN-2022 14:08, Atrial fibrillation has replaced Sinus rhythm Confirmed by Samuel Sargent ([id number]) on 07/30/2022 1:31:30 PM Referred By: REFERRED SELF Confirmed By:Samuel Sargent
--- NOTE | 2022-07-30 16:17 | Discharge Summary ---
Date of Service July 30, 2022 Admission HPI Per Admitting Provider 72 yo female with PMHx of uterine cancer s/p hysterectomy, depression, GERD, hypomagnesemia, HTN, and HLD presents to clinic for syncopal episode. Last night patient was sitting on the commode in her bathtub and started feeling weak and subsequently passed out falling forward. When she was found shortly after by her daughter she was noted to be laying in her own vomit. She did not hit her head. Denies prodrome. Other than ongoing weakness patient denies any fevers, chills, chest pain, shortness of breath, abdominal pain, nausea, vomiting, diarrhea, constipation, melena, dysuria. BMs have been regular without blood. Of note, yesterday afternoon patient received a platelet infusion at the [facility]. She has received whole blood transfusions in the past but this was her first only platelet infusion. Patient has an extensive medical history and follows with [facility] heme-onc. A few years ago she was diagnosed with uterine cancer and underwent hysterectomy with intraperitoneal chemotherapy. She was then on maintenance Zejula for a couple of years until surveillance labs started elevating. It was more recently found that she had cancerous lesions in the pelvic region and was advised to start systemic chemotherapy a few weeks ago. Her first week of chemo included a combo of carboplatin and Doxil, however, she had an adverse reaction to the Doxil so the medication was switched to a different medication that is not known at this time. Last week patient was also diagnosed with a DVT in her lower left extremity and was placed on Eliquis which was held a couple of days ago due to her platelet infusion yesterday. She was advised by her heme-oncologist to hold Eliquis until seen by them later this week. Admission Exam Per Admitting Provider Constitutional: in no acute distress, pleasant. AOx3. Vitals as above. HEENT: No scleral injection or discharge. Moist mucous membranes. Neck: Supple without lymphadenopathy or thyromegaly. Trachea midline. Lungs: Clear to auscultation bilaterally with good effort. Cardiac: Regular rate and rhythm. No murmurs. No extremity edema. 2+peripheral pulses. Abdomen: Bowel sounds present. Soft, nontender, and nondistended.No guarding. No hepatosplenomegaly. MSK: No cyanosis or clubbing. Extremities motor strength 5/5. Skin: No rashes, warm, dry. Port-a-cath present L chest wall. Neurologic: No focal deficits Principal Diagnosis Syncope Discharge Exam Constitutional WD/WN, vitals as above Eyes PERRL, conjunctivae normal, anicteric sclerae ENMT external ear and nose normal, oropharynx normal Neck trachea midline, no thyromegaly Respiratory normal respiratory effort, lungs clear to auscultation Cardiovascular RRR, no murmur, no edema Musculoskeletal no cyanosis or clubbing, extremities motor strength 5/5 Skin no rashes, warm and dry Neurologic PERRL, EOMI, accommodation nl, no face palsy, no dysarthria CN's II-XI intact bilaterally Discharge Data Allergies Allergy/AdvReac Type Severity Reaction Status Date / Time adhesive tape Allergy Intermediate localized Verified 07/29/22 13:00 skin reddness/irritation latex Allergy Intermediate localized Verified 07/29/22 13:00 skin reddness/irritation aspirin Allergy Mild facial Verified 07/29/22 13:00 flushing ciprofloxacin Allergy Unknown Rash Verified 07/29/22 13:00 Consultations 07/30/22 02:06 ED Decision to Admit Stat Ordered Studies 07/29/22 23:55 CT head/brain wo con Stat 07/30/22 10:06 CT angio chest PE protocol Routine Hospital Course (1) Syncope: 72 yo female with PMHx of uterine cancer s/p hysterectomy, depression, GERD, hypomagnesemia, HTN, and HLD presents to clinic for syncopal episode. #Syncope -presented with syncopal episode after getting out of bath and resting on commode, noted weakness and vomitting. Patient feeling better since arrival. Afebrile, vitals normal. Tele showing NSR. -CT head: no acute stroke, unremarkable -Echo (06/19/22): EF 60-65%, mild LVH -Hgb 7.6. Was 10.1 on 07/01/22. -CTA chest: No evidence for a pulmonary embolus. Interval development of a small right pleural effusion. Increase in size in the anterior diaphragmatic lymph nodes and a single right internal mammary lymph node consistent with progressive metastatic disease. -no symptoms with position changes laying, sitting -at this time patient's symptoms are believed to be 2/2 vasovagal episode and dehydration, patient may return home at this time. #Anemia -Hgb 7.6. Was 10.1 on 07/01/22. -It appears hemoglobin started downtrending upon initiation of systemic chemo which was started a few weeks ago. Pt denies any other signs of active bleeding. BMs normal. She does state she has been due for a screening colonoscopy with h/o polyps. #Hypomagnesemia, acute on chronic -mag 1.3 on admission. Baseline ~1.5 -replenished with 2g IV -pt chronically on PPI for GERD. Will cont. PPI for now however would consider changing to famotidine with chronic hypomagnesemia. -cont. daily magnesium oral supplement #H/o uterine cancer -diagnosed 3 years ago with subsequent intraperitoneal chemo and hysterectomy. Was on maintenance Zejula. More recently surveillance labs and PET scan discovered new intraperitoneal lesions. Started on systemic chemo 3 weeks ago. Port-a-cath present. -follows with [facility] heme[facility]onc. Pt did make oncologist aware of current situation and told her they would follow up with her today. Heme/onc have been following her labs. Due to immunosuppression, she has been thrombocytopenic and now s/p platelet transfusion (07/29/22). As above, it appears acute on chronic anemia due to recent chemotherapy as well. #DVT -new onset last week in L lower extremity found in outpatient setting -initially on Eliquis 5mg bid which was lowered to 2.5mg bid by prescribing provider due to thrombocytopenia. Prior to her platelet transfusion, was advised to hold eliquis until seen by heme/onc later this week. -will continue to hold eliquis for now #GERD -as above -cont. PPI, consider change to famotidine due to chronic hypomagnesemia #Depression -cont. paxil #HLD -cont. statin #HTN -cont. atenolol (2) Thrombocytopenia: (3) Anemia: (4) Depression: (5) Hyperlipidemia: (6) Benign essential hypertension: (7) Hypomagnesemia: (8) Uterine cancer: (9) Port-A-Cath in place: Total Time Total Time Spent Total Time Spent (In Minutes): see attending attestation Discharge Plan Discharge Items Patient Disposition: Home - Self-Care Reason For Visit: SYNCOPE Discharge Diagnosis: Syncope Activity: Resume your previous activity Non-emergency contact: Primary Care Provider Call non-emergency contact if: you have any medication questions, your symptoms worsen and your pain is concerning for you Follow-up/Referrals: Kasey Mendez MD [Primary Care Provider] - Diet: Regular Addtl Attending Provider Instructions: You were admitted to the hospital for Syncope. While in the hospital, we ruled out common causes of passing out, including cardiac issues, pulmonary embolism, orthostatic hypotension and stroke. Likely you passed out due to a combination of vasovagal episode and possible dehydration. Given that your symptoms have resolved at this time without further intervention, you may return home at this time. A discharge summary will be sent to your primary care physician to ensure continuity of care. Please bring this discharge summary with you to your next office appointment so that your provider can review it at that time. Follow-up appointments: Make a follow-up appointment with your PCP within the next week. It is very important that you follow up with them shortly after discharge from the hospital. Keep all your follow-up appointments as already scheduled. If you cannot make an appointment, notify your provider. Medications: Your medication list has been reviewed and reconciled upon discharge to ensure accuracy and continuity of care. An updated list of all your medications is included with your hospital discharge paperwork. Please review this list closely, and make note of any changes. Take your medications as instructed; do not skip a dose of your medicines. Make sure all of your doctors know every medicine you are taking (including over -the-counter medicines, vitamins, and supplements). Call your primary care provider before taking any new medicines (including [id number] medicines, vitamins, and supplements), because some of these may interact with your current medications, or may make your symptoms worse. Tell your primary care provider if you cannot afford your medications. CONTACT YOUR PRIMARY CARE PROVIDER if you experience any of the following: Increased nausea, dizziness, fatigue Increased weakness, loss of consciousness Difficulty following your treatment plan, or difficulty taking medications CALL 911 OR GO TO THE EMERGENCY DEPARTMENT if you experience any of the following: Sudden, severe abdominal pain or nausea/vomiting Severe chest pain, or chest pain that radiates (moves) to your jaw or arm Sudden, severe shortness of breath or difficulty breathing Thank you for allowing us to participate in your care. Pending Studies at Discharge: No Stand-Alone Forms: My [facility] Last Guide, Smoking Cessation Medications and DC Order Prescriptions: Continued cholecalciferol (vitamin D3) 1,000 unit capsule 1,000 units PO QPM atenolol 25 mg tablet 25 mg PO HS Qty: 90 3RF fluticasone propionate 50 mcg/actuation spray,suspension 2 spray INTNAS HS Qty: 48 3RF paroxetine HCl [Paxil] 10 mg tablet 10 mg PO QDB Qty: 90 3RF atorvastatin 20 mg tablet 20 mg PO HS Qty: 90 3RF magnesium oxide 400 mg magnesium capsule 800 mg PO QAM acetaminophen [Tylenol] 325 mg capsule 325 mg PO QID PRN (Reason: Pain) calcium carbonate 600 mg calcium (1,500 mg) tablet 600 mg PO BIDM Digestive Enzyme (acidoph,pec) 50 million cell-100 mg Tablet 1 tab PO QPM ondansetron HCl 8 mg Tablet 8 mg PO Q8H PRN (Reason: Nausea) cyanocobalamin (vitamin B-12) [Vitamin B-12] 1,000 mcg Tablet 1,000 mcg PO DAILY folic acid 400 mcg Tablet 0.4 mg PO QPM omeprazole 20 mg capsule,delayed release(DR/EC) 20 mg PO QAM loratadine [Claritin] 10 mg Tablet 10 mg PO UD PRN (Reason: Allergy Symptoms) Discharge Orders: Discharge Order (Routine); Ordered 07/30/22 Ordered By: Ladonna Hoang Admission Data Admit Date/Time: 07/30/22 03:35 Attending Provider: Alejandro Burton Admit Provider: Marcos Guajardo Primary Care Provider: Kasey Mendez Other Providers: Tyler Siu Other Interventions: Discharge Summary Assessment (RN) Last Done: 07/30/22 16:46 Supervising Physician Co-Signing Physician Notes I personally examined the patient and verified all mcneal points of history and exam, discussed case, and agree with decision making with Dr Hoang. Feeling better and would very much like to go home. Discussed most probable diagnosis (vasodilation from being in the tub, vagal/vasoactive syncope mechanism), discussed CT negative for PE, discussed seizure exceedingly unlikely given the presentation/etc. Patient and daughter reassured and very much would like to go home. Vitals noted, in general she is awake and alert pleasant no di stress. HEENT normocephalic atraumatic mucous membranes moist. Labs and imaging reviewed. Syncopealmost certainly vasodilation from heat leading to essentially a vasovagal type mechanism. Safe/stable for home. Outpatient follow-up with oncology. Extensive discussion on nutrition and hydration, particularly in the context of going through cancer treatments. Otherwise as above. Resident Activity Tracking Resident Involvement: Resident Care Provided Care Provided: Adult [facility]
--- NOTE | 2022-07-30 17:26 | Billing Data ---
Date of Service July 30, 2022 Coding Level of Care Code 42367 INT INP/OBS CARE
--- NOTE | 2022-07-30 19:24 | Billing Data ---
Date of Service July 30, 2022 Coding Level of Care Code 39911 IN/OBS DISCH 30 MIN/LESS
[2022-07-30] MEDS ORDERED: CHOLECALCIFEROL 1,000 UNITS 25 MCG TAB PO SCH (21:00)
[2022-07-30] MEDS ORDERED: ATENOLOL 25 MG TABLET PO SCH (21:00)
[2022-07-30] MEDS ORDERED: FOLIC ACID 400 MCG TAB PO SCH (21:00)
[2022-07-30] MEDS ORDERED: [UNRECOGNIZED DRUG - OTHER] PO SCH (21:00)
[2022-07-30] MEDS ORDERED: DIGESTIVE PO SCH (21:00)
[2022-07-30] MEDS ORDERED: ATORVASTATIN 20 MG TAB PO SCH (21:00)
== END 2022-07-30 22:00 | disposition home or self-care (01) | DRG 809 ==
LOC: ED 23:33 → EDINP 07-30 03:35 → SUATTDRO 07-30 03:35 → EDINP 07-30 04:15 → ED 07-30 21:44

== ENCOUNTER 2022-11-07 16:03 | Inpatient (IN) ==
--- NOTE | 2022-11-07 16:20 | Emergency Department Note ---
Impression & Plan Acute CVA (cerebrovascular accident), Anemia, Leukocytosis, Endometrial cancer ED Provider Note NAME: ERLINDA RAMIREZ AGE: 72 SEX: F : 1950 ARRIVES VIA: Walk-In INFORMANT: [Patient] ED PROVIDER(S): [French Damon MD] CHIEF COMPLAINT: Abnormal MRI HISTORY OF PRESENT ILLNESS: The patient is a 72-year-old female who is on her second round of chemotherapy for endometrial cancer. 4 days ago, the patient had a left peripheral vision deficit. Things were improving, however, patient did see her eye doctor and her eyes were felt to be functioning well. She saw her cancer specialist today and an MRI was done looking for metastases. No metastases were found but small acute infarcts were seen. She was referred to the ER. The patient believes her vision has improved markedly compared to 4 days ago. She has had no headache, no arm or leg weakness or numbness, no difficulty with her speech, no difficulty with her thinking. No fever. No cough or cold or congestion. No palpitations, no shortness of breath. Of note, she is on Eliquis PMHx/PSHx: See Below SOCIAL HISTORY: See Below. PHYSICAL EXAM: GENERAL: Patient is in no acute distress. HEENT: No acute trauma, normocephalic atraumatic, mucous membranes moist, no nasal congestion. Visual wolfe are intact in both eyes. Pupils are equal and reactive to light. NECK: No stridor, no adenopathy, no meningismus, trachea is midline. LUNGS: Few scattered crackles heard, no wheezing, no respiratory distress. HEART: Subtle systolic murmur, regular rate and rhythm. ABDOMEN: Soft, nontender, bowel sounds positive, no peritonitis. EXTREMITIES: No cyanosis or edema, full range of motion of all the joints without pain or difficulty, no signs for acute trauma. NEUROLOGIC: Oriented x 3, no acute motor or sensory deficits, no focal weakness. No facial droop or speech slur, no extremity drift or cerebellar dysfunction, excellent historian. SKIN: No rash, no jaundice, no diaphoresis. Pale. DIFFERENTIAL DIAGNOSIS: Stroke, embolus, dysrhythmia, intracranial bleeding, electrolyte imbalance, anemia, among others. EMERGENCY DEPARTMENT COURSE/PROCEDURES: Prior/Outside records reviewed: Recent MRI report. ECG per my interpretation: Indication was stroke. The ECG shows a normal sinus rhythm with a potential old anterior infarct. There is no ST elevation, no PVCs. The QTc is 405. Compared to an ECG from 29 July 2022, criteria for anterior infarct are now present. PACs are no longer present. Continuous Cardiac Monitoring per my interpretation: An order was placed for continuous cardiac monitoring. The monitor shows a rate of 78 with normal sinus rhythm. MEDICAL DECISION MAKING: There is a significant leukocytosis at 27,000, this could be consistent with infection or part of her cancer treatment. Her white count has been higher before when looking back at previous testing. Patient was anemic, this appears to be baseline as of late. There was a normal platelet count. No coagulopathy. No significant electrolyte abnormality, no renal failure. Magnesium slightly low at 1.6. Alk phos was slightly elevated, the bilirubin was normal. ECG showed a normal sinus rhythm, no dysrhythmia. Cardiac enzyme testing x1 was slightly elevated at 38. This elevation could be secondary to cardiac injury or potentially mismatch. Patient appeared to be in a euthyroid state. Urinalysis did not show infection. COVID test returned negative. CT of the head did not show acute bleed or mass effect. CT angio of the head and neck were performed. There was an occlusion noted to a peripheral branch of the right posterior cerebral artery. CT angio of the neck was unremarkable. MRI from earlier today did show evidence for an acute CVA. On my exam, there were no focal neurologic findings. Patient was given IV magnesium because of the lower magnesium value. I spoke with the patient about her findings, I spoke with case management, the on-call hospitalist has been consulted. Further work-up for stroke is indicated. DISPOSITION: Patient's presentation and findings warrant a hospital stay. 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 still inplace. will bring card for current port DOS. Hx of basal cell carcinoma excision Hx of tonsillectomy Port-A-Cath in place (07/02/22) Insertion of Right Internal Jugular Access Port with Fluoroscopy(Right) - Martin Clark DO, FACS Family History Mother Hypertension Malignant neoplasm of urinary bladder Denies family history of Ovarian cancer Prostate cancer Myocardial infarction Breast cancer Colorectal cancer Social History Smoking Status: Former smoker Tobacco Type: Cigarettes Age Started Using Tobacco: 20; Age Quit Using Tobacco: 22; packs per day: 0.5; Cigarettes Per Day: 10 or less; Second Hand Exposure: No; Do You Dip or Chew Tobacco: No; Hx Alcohol Use: No Hx Substance Use: No Preferred Language: Zambian Communication Ability: Effective Visual Impairment: No Limitations Hearing Ability: Normal Rn L And D Required: No Beliefs That Will Affect Care: None marital status: Current Living Situation: Family Current Living Situation Comment: Lives at home with daughter irena current occupational status: retired How many Children do You have: 2 Feels Safe at Home: Yes Childhood Exposure to Second-Hand Smoke: Yes Diet: regular caffeine: Yes during the past year weight has: remained stable Dental Care, Regularly: Yes Physical Activity Frequency: 3-4 Times per Week Seatbelt Use: always Sunscreen Use: Yes Assistive Devices: None Allergies Allergies Allergy/AdvReac Type Severity Reaction Status Date / Time adhesive tape Allergy Intermediate localized Verified 10/27/22 10:34 skin reddness/irritation latex Allergy Intermediate localized Verified 10/27/22 10:34 skin reddness/irritation aspirin Allergy Mild facial Verified 10/27/22 10:34 flushing ciprofloxacin Allergy Unknown Rash Verified 10/27/22 10:34 Home Meds Home Medications Medication Instructions Recorded Confirmed cholecalciferol (vitamin D3) 25 1,000 units PO QPM 11/09/18 11/07/22 mcg (1,000 unit) capsule magnesium oxide 800 mg PO QAM 01/28/22 11/07/22 cyanocobalamin (vitamin B-12) 1,000 mcg PO DAILY 06/26/22 11/07/22 1,000 mcg tablet (Vitamin B-12) folic acid 400 mcg tablet 0.4 mg PO QPM 06/26/22 11/07/22 loratadine 10 mg tablet (Claritin) 10 mg PO UD PRN Allergy Symptoms 06/26/22 11/07/22 ondansetron HCl 8 mg tablet 8 mg PO Q8H PRN Nausea 07/29/22 11/07/22 apixaban 2.5 mg tablet (Eliquis) 2.5 mg PO BID 08/26/22 11/07/22 Bifidobacterium infantis 4 mg 4 mg PO DAILY 11/07/22 11/07/22 capsule (Align) Calcium Citrate Tab 600 mg PO BID 11/07/22 11/07/22 Eye Vitamin Tab 1 tab PO DAILY 11/07/22 11/07/22 acetaminophen 650 mg 650 mg PO Q8H PRN Pain 11/07/22 11/07/22 tablet,extended release (Tylenol Arthritis Pain) dexamethasone 4 mg tablet See Rx Instructions .Route .COMPLEX 11/07/22 11/07/22 diphenhydramine HCl 25 mg capsule See Rx Instructions .Route .COMPLEX 11/07/22 11/07/22 (Benadryl) famotidine 20 mg tablet (Pepcid) See Rx Instructions .Route .COMPLEX 11/07/22 11/07/22 fluticasone propionate 50 2 spray intranasal HS PRN allergies 11/07/22 11/07/22 mcg/actuation nasal spray,suspension magnesium oxide 400 mg PO QPM 11/07/22 11/07/22 Previous Rx's Medication Instructions Recorded paroxetine HCl 10 mg tablet (Paxil) 10 mg PO QDB #90 tabs 04/08/22 atorvastatin 20 mg tablet 20 mg PO HS #90 tabs 04/29/22 atenolol 25 mg tablet 25 mg PO HS #90 tabs 08/13/22 omeprazole 20 mg capsule,delayed 20 mg PO QAM #90 caps 09/18/22 release Results & Data (ED) Vital Signs Vital Signs - 24 hr 11/07/22 16:11 11/07/22 16:04 11/07/22 16:43 Temperature 36.5 C Temperature Source Temporal Artery Scan Pulse Rate 78 69 Pulse Rate [Apical] 68 Pulse Rhythm Regular Pulse Rhythm [Apical] Regular Pulse Strength [Apical] Normal Respiratory Rate 20 20 Respiratory Effort / Characteristics Non-Labored Spontaneous Non-Labored Respiratory Depth Normal Respiratory Pattern Regular Blood Pressure 180/80 H Blood Pressure [Right Arm] 166/82 H Blood Pressure Mean 113 Blood Pressure Mean [Right Arm] 110 Blood Pressure Position [Right Arm] Sitting Pulse Oximetry 98 Oxygen Delivery Method Room Air Room Air Sepsis Recent Fever Within 48 Hours No Sepsis New/Unexplained Change in Mental Status No Sepsis Action Taken by Nursing No Action Required Home Medications Current Medication List: was personally reviewed by me Laboratory Data Attestation: I reviewed the patient's lab results. Lab Results 11/07/22 11/07/22 11/07/22 Range/Units 16:19 16:19 16:19 PT 10.9 (9.0-12.0) Seconds INR 1.0 (0.9-1.1) APTT 32.5 H (21.0-31.0) Seconds PTT Ratio 1.2 Troponin I High Sens 38.0 H (0-14) pg/ml TSH 0.436 (0.300-4.500) uIu/ml SARS-CoV-2, RNA, NAAT (NEGATIVE) 11/07/22 Range/Units 16:45 PT (9.0-12.0) Seconds INR (0.9-1.1) APTT (21.0-31.0) Seconds PTT Ratio Troponin I High Sens (0-14) pg/ml TSH (0.300-4.500) uIu/ml SARS-CoV-2, RNA, NAAT NEGATIVE (NEGATIVE) Administered Medications Apixaban (Apixaban 2.5 Mg Tab) 2.5 mg PO BID CAMMIE Stop: 12/07/22 20:59 Last Admin: 11/07/22 21:11 Dose: 2.5 mg Documented By: [id number] Atenolol (Atenolol 25 Mg Tablet) 25 mg PO HS CAMMIE Stop: 12/07/22 20:59 Last Admin: 11/07/22 21:12 Dose: 25 mg Documented By: [id number] Atorvastatin Calcium (Atorvastatin 20 Mg Tab) 20 mg PO HS CAMMIE Stop: 12/07/22 20:59 Last Admin: 11/07/22 21:13 Dose: 20 mg Documented By: [id number] Dexamethasone (Dexamethasone 4 Mg Tab) 4 mg PO BID CAMMIE Stop: 11/08/22 09:01 Last Admin: 11/07/22 21:12 Dose: 4 mg Documented By: [id number] Diphenhydramine HCl (Diphenhydramine Capsule 25 Mg Cap) 25 mg PO BID CAMMIE Stop: 11/08/22 09:01 Last Admin: 11/07/22 21:13 Dose: 25 mg Documented By: [id number] Famotidine (Famotidine 10 Mg Tablet) 10 mg PO BID CAMMIE Stop: 11/08/22 09:01 Last Admin: 11/07/22 21:12 Dose: 10 mg Documented By: [id number] Fluticasone Propionate (Fluticasone Propionate Na Spr 16 Gm Btl) 2 sprays NA HS CAMMIE Stop: 12/07/22 20:59 Last Admin: 11/07/22 21:28 Dose: Not Given Documented By: [id number] Folic Acid (Folic Acid 400 Mcg Tab) 400 mcg PO QPM CAMMIE Stop: 12/07/22 20:59 Last Admin: 11/07/22 21:13 Dose: 400 mcg Documented By: [id number] Lactobacillus Acidophilus (Advanced Probiotic 1250 Mg Capsule) 2 cap PO QPM CAMMEI Stop: 12/07/22 20:59 Last Admin: 11/07/22 21:13 Dose: 2 cap Documented By: [id number] Olanzapine (Olanzapine Zydis 5 Mg Orally Dis. Tab) 2.5 mg PO HS [facility] Stop: 12/07/22 20:59 Last Admin: 11/07/22 21:14 Dose: 2.5 mg Documented By: [id number] Vitamin D (Cholecalciferol 1,000 Units 25 Mcg Tab) 1,000 units PO QPM CAMMIE Stop: 12/07/22 20:59 Last Admin: 11/07/22 21:22 Dose: 1,000 units Documented By: [id number] Discontinued Medications Clopidogrel Bisulfate (Clopidogrel Bisulfate 75 Mg Tab) 75 mg PO NOW ONE Stop: 11/07/22 18:46 Last Admin: 11/07/22 19:22 Dose: 75 mg Documented By: YAIR Magnesium Sulfate/Dextrose (Magnesium Sulfate / D5w) 1 gm in 100 mls @ 100 mls/hr IV NOW STA Stop: 11/07/22 17:20 Last Infusion: 11/07/22 19:45 Dose: 0 mls/hr Documented By: [id number] Admin: 11/07/22 17:06 Dose: 100 mls/hr Documented By: WCS Ioversol (Optiray 320 125ml) 116 ml IV ONCE ONE Stop: 11/07/22 17:44 Last Admin: 11/07/22 17:44 Dose: 116 ml Documented By: JOY Imaging Data Radiologist's Impression: Head CT 11/07/22 16:[address] OF THE BRAIN; CT ANGIOGRAM OF THE BRAIN; CT ANGIOGRAM OF THE NECK CLINICAL HISTORY: Strokelike symptoms. Abnormal MRI. Visual changes. COMPARISON STUDY: MRI of the brain dated 11/07/2022. CT of the brain dated 07/30/2022. TECHNIQUE: Unenhanced axial CT scan of the brain is performed. Subsequently, following the IV administration of 116 of Optiray 320, CT angiogram of the head and neck was performed from the aortic arch to the vertex. Images are reviewed in the axial, sagittal, and coronal planes. 3-D MIPS images are created and assessed. IV contrast was administered without complication. All measurements were calculated based on NASCET criteria. A dose lowering technique was utilized adhering to the principles of ALARA. CT DOSE: 893.59 mGy.cm FINDINGS: Brain parenchyma: There is age-related involutional change noting mild subcortical and periventricular microangiopathic disease. There is no hemorrhage, mass effect, or evidence of acute territorial ischemia by CT criteria. There is no evidence of enhancing mass lesion on the angiogram phase images. The ventricles, sulci, and cisterns are normal in configuration. Montero- white matter differentiation is preserved. No extra-axial fluid collection is seen. Thoracic aorta: Visualized portions of the thoracic aorta are normal in caliber. The aortic arch demonstrates standard 3-vessel anatomy. Right carotid arterial system: The right common carotid artery is widely patent, as are the right internal and external carotid arteries. Left carotid arterial system: The left common carotid artery is widely patent, as are the left internal and external carotid arteries. Vertebral arteries: The vertebral arteries are widely patent bilaterally and codominant. Subclavian arteries: Widely patent bilaterally. Intracranial vasculature: There is mild atherosclerotic calcification of the cavernous carotid arteries The internal carotid arteries are patent at the skull base, as are the anterior and middle cerebral arteries bilaterally. The vertebrobasilar system and the left posterior cerebral artery are widely patent. The proximal right posterior shoulder arteries patent. Suspect occlusion of a peripheral branch of the right posterior cerebral artery seen on axial image #89. The vertebral arteries are codominant. No aneurysm is seen. Jugular veins: A right internal jugular central venous infusion port is in place. Jugular veins are patent bilaterally. Dural sinuses: Patent. Lung apices: Partially visualized upper lobe lung parenchyma appears clear. Soft tissues: The visualized pharyngeal soft tissues are normal in appearance noting angiographic phase technique. The oropharyngeal airway appears widely patent. The thyroid gland is normal in size and heterogeneous in attenuation. The salivary glands are normal in appearance. There is left supra clavicular lymphadenopathy. A node on image #101 measures 2.3 x 1.6 cm. Mildly enlarged left cervical chain lymph nodes measure up to 11 mm in length. Skeletal structures: The skeletal structures are osteopenic. The calvarium appears intact. The cervical spine is maintained noting multilevel spondylosis. No lytic or blastic lesion is seen. Orbits: The bony orbits are intact. Orbital contents are normal as visualized. Sinuses and mastoids: The paranasal sinuses are clear. The mastoid air cells are well pneumatized. IMPRESSION: 1. There is no hemorrhage, mass effect, or evidence of acute territorial ischemia by CT criteria. 2. Suspect occlusion of a peripheral branch of the right posterior cerebral artery. This may correspond to the small infarcts seen by MRI. 3. Otherwise unremarkable CT angiogram of the brain. 4. Unremarkable CT angiogram of the neck. 5. Left supraclavicular and cervical chain lymphadenopathy is again noted and remains suspicious for metastatic disease. ACT 112: Negative or not required by law. Electronically signed by: French Bower M.D. 11/07/2022 6:10 PM Head CTA 11/07/22 16:[address] OF THE BRAIN; CT ANGIOGRAM OF THE BRAIN; CT ANGIOGRAM OF THE NECK CLINICAL HISTORY: Strokelike symptoms. Abnormal MRI. Visual changes. COMPARISON STUDY: MRI of the brain dated 11/07/2022. CT of the brain dated 07/30/2022. TECHNIQUE: Unenhanced axial CT scan of the brain is performed. Subsequently, following the IV administration of 116 of Optiray 320, CT angiogram of the head and neck was performed from the aortic arch to the vertex. Images are reviewed in the axial, sagittal, and coronal planes. 3-D MIPS images are created and assessed. IV contrast was administered without complication. All measurements were calculated based on NASCET criteria. A dose lowering technique was utilized adhering to the principles of ALARA. CT DOSE: 893.59 mGy.cm FINDINGS: Brain parenchyma: There is age-related involutional change noting mild subcortical and periventricular microangiopathic disease. There is no hemorrhage, mass effect, or evidence of acute territorial ischemia by CT criteria. There is no evidence of enhancing mass lesion on the angiogram phase images. The ventricles, sulci, and cisterns are normal in configuration. Montero- white matter differentiation is preserved. No extra-axial fluid collection is seen. Thoracic aorta: Visualized portions of the thoracic aorta are normal in caliber. The aortic arch demonstrates standard 3-vessel anatomy. Right carotid arterial system: The right common carotid artery is widely patent, as are the right internal and external carotid arteries. Left carotid arterial system: The left common carotid artery is widely patent, as are the left internal and external carotid arteries. Vertebral arteries: The vertebral arteries are widely patent bilaterally and codominant. Subclavian arteries: Widely patent bilaterally. Intracranial vasculature: There is mild atherosclerotic calcification of the cavernous carotid arteries The internal carotid arteries are patent at the skull base, as are the anterior and middle cerebral arteries bilaterally. The vertebrobasilar system and the left posterior cerebral artery are widely patent. The proximal right posterior shoulder arteries patent. Suspect occlusion of a peripheral branch of the right posterior cerebral artery seen on axial image #89. The vertebral arteries are codominant. No aneurysm is seen. Jugular veins: A right internal jugular central venous infusion port is in place. Jugular veins are patent bilaterally. Dural sinuses: Patent. Lung apices: Partially visualized upper lobe lung parenchyma appears clear. Soft tissues: The visualized pharyngeal soft tissues are normal in appearance noting angiographic phase technique. The oropharyngeal airway appears widely patent. The thyroid gland is normal in size and heterogeneous in attenuation. The salivary glands are normal in appearance. There is left supra clavicular lymphadenopathy. A node on image #101 measures 2.3 x 1.6 cm. Mildly enlarged left cervical chain lymph nodes measure up to 11 mm in length. Skeletal structures: The skeletal structures are osteopenic. The calvarium appears intact. The cervical spine is maintained noting multilevel spondylosis. No lytic or blastic lesion is seen. Orbits: The bony orbits are intact. Orbital contents are normal as visualized. Sinuses and mastoids: The paranasal sinuses are clear. The mastoid air cells are well pneumatized. IMPRESSION: 1. There is no hemorrhage, mass effect, or evidence of acute territorial ischemia by CT criteria. 2. Suspect occlusion of a peripheral branch of the right posterior cerebral artery. This may correspond to the small infarcts seen by MRI. 3. Otherwise unremarkable CT angiogram of the brain. 4. Unremarkable CT angiogram of the neck. 5. Left supraclavicular and cervical chain lymphadenopathy is again noted and remains suspicious for metastatic disease. ACT 112: Negative or not required by law. Electronically signed by: French Bower M.D. 11/07/2022 6:10 PM Neck CTA 11/07/22 16:[address] OF THE BRAIN; CT ANGIOGRAM OF THE BRAIN; CT ANGIOGRAM OF THE NECK CLINICAL HISTORY: Strokelike symptoms. Abnormal MRI. Visual changes. COMPARISON STUDY: MRI of the brain dated 11/07/2022. CT of the brain dated 07/30/2022. TECHNIQUE: Unenhanced axial CT scan of the brain is performed. Subsequently, following the IV administration of 116 of Optiray 320, CT angiogram of the head and neck was performed from the aortic arch to the vertex. Images are reviewed in the axial, sagittal, and coronal planes. 3-D MIPS images are created and assessed. IV contrast was administered without complication. All measurements were calculated based on NASCET criteria. A dose lowering technique was utilized adhering to the principles of ALARA. CT DOSE: 893.59 mGy.cm FINDINGS: Brain parenchyma: There is age-related involutional change noting mild subcortical and periventricular microangiopathic disease. There is no hemorrhage, mass effect, or evidence of acute territorial ischemia by CT criteria. There is no evidence of enhancing mass lesion on the angiogram phase images. The ventricles, sulci, and cisterns are normal in configuration. Montero- white matter differentiation is preserved. No extra-axial fluid collection is seen. Thoracic aorta: Visualized portions of the thoracic aorta are normal in caliber. The aortic arch demonstrates standard 3-vessel anatomy. Right carotid arterial system: The right common carotid artery is widely patent, as are the right internal and external carotid arteries. Left carotid arterial system: The left common carotid artery is widely patent, as are the left internal and external carotid arteries. Vertebral arteries: The vertebral arteries are widely patent bilaterally and codominant. Subclavian arteries: Widely patent bilaterally. Intracranial vasculature: There is mild atherosclerotic calcification of the cavernous carotid arteries The internal carotid arteries are patent at the skull base, as are the anterior and middle cerebral arteries bilaterally. The vertebrobasilar system and the left posterior cerebral artery are widely patent. The proximal right posterior shoulder arteries patent. Suspect occlusion of a peripheral branch of the right posterior cerebral artery seen on axial image #89. The vertebral arteries are codominant. No aneurysm is seen. Jugular veins: A right internal jugular central venous infusion port is in place. Jugular veins are patent bilaterally. Dural sinuses: Patent. Lung apices: Partially visualized upper lobe lung parenchyma appears clear. Soft tissues: The visualized pharyngeal soft tissues are normal in appearance noting angiographic phase technique. The oropharyngeal airway appears widely patent. The thyroid gland is normal in size and heterogeneous in attenuation. The salivary glands are normal in appearance. There is left supra clavicular lymphadenopathy. A node on image #101 measures 2.3 x 1.6 cm. Mildly enlarged left cervical chain lymph nodes measure up to 11 mm in length. Skeletal structures: The skeletal structures are osteopenic. The calvarium appears intact. The cervical spine is maintained noting multilevel spondylosis. No lytic or blastic lesion is seen. Orbits: The bony orbits are intact. Orbital contents are normal as visualized. Sinuses and mastoids: The paranasal sinuses are clear. The mastoid air cells are well pneumatized. IMPRESSION: 1. There is no hemorrhage, mass effect, or evidence of acute territorial ischemia by CT criteria. 2. Suspect occlusion of a peripheral branch of the right posterior cerebral artery. This may correspond to the small infarcts seen by MRI. 3. Otherwise unremarkable CT angiogram of the brain. 4. Unremarkable CT angiogram of the neck. 5. Left supraclavicular and cervical chain lymphadenopathy is again noted and remains suspicious for metastatic disease. ACT 112: Negative or not required by law. Electronically signed by: French Bower M.D. 11/07/2022 6:10 PM MRI OF THE BRAIN WITHOUT AND WITH IV CONTRAST CLINICAL HISTORY: Visual disturbance in left eye and to r/o bleed. COMPARISON STUDY: PET/CT May 08, [address] July 30, 2022. TECHNIQUE: Utilizing a 1.5 Laura magnet and dedicated coil, multiplanar, multiecho imaging of the brain was performed pre and postcontrast administration. IV administration of 8 mL of Gadavist contrast was uneventful. Thin cut T1 post contrast imaging was performed. FINDINGS: There is a 5 mm hyperintense focus within the right occipital lobe on diffusion-weighted sequence image 17 of 26. This is hypointense on the ADC map. There may be minimal corresponding T2 hyperintensity. There is also a 9 mm hyperintense focus within the inferior right thalamus on diffusion-weighted sequence image 13 of 26. This corresponds to mild FLAIR signal abnormality on coronal FLAIR image 16 of 28. These favor small acute infarcts. The ventricular system is unremarkable. Basal cisterns are patent. No acute intracranial hemorrhage, midline shift or mass effect is present. There is no intracranial mass or pathologic enhancement. Flow-voids for the major intracranial vessels are present. Matter T2 hyperintense foci suggest small vessel disease. IMPRESSION: 1. Small foci of restricted diffusion within the right occipital lobe and inferior right thalamus. These favor small acute infarcts. No mass effect. No hemorrhage. The right occipital lobe infarct could account for left-sided visual symptoms. This finding will be called/faxed to the ordering provider at time of dictation. 2. No intracranial mass or pathologic enhancement. Discharge Plan Visit Data Chief Complaint: Abnormal Labs/Diagnostic Testing Stated Complaint: REFFERED BY DR VANN, ABNORMAL LAB ED Provider: French Damon Discharge Problem: Acute CVA (cerebrovascular accident), Anemia, Leukocytosis, Endometrial cancer Patient Disposition: Admitted As Inpatient Condition: Fair Discharge Instructions Interventions: ED Discharge Assessment Last Done: 11/07/22 20:00
[2022-11-07] MEDS ORDERED: MAGNESIUM SULFATE / D5W 1 GM/100 ML BAG IV STA (16:21)
[2022-11-07] MEDS ORDERED: OPTIRAY 320 125ml IV ONE (17:43)
[2022-11-07 17:54] LABS: Partial Thromboplastin Ratio 1.2; Partial Thromboplastin Time 32.5 Seconds (21.0-31.0); Prothrombin Time 10.9 Seconds (9.0-12.0)
--- NOTE | 2022-11-07 18:12 | CT Scan Report ---
UNENHANCED CT OF THE BRAIN; CT ANGIOGRAM OF THE BRAIN; CT ANGIOGRAM OF THE NECK CLINICAL HISTORY: Strokelike symptoms. Abnormal MRI. Visual changes. COMPARISON STUDY: MRI of the brain dated 11/07/2022. CT of the brain dated 07/30/2022. TECHNIQUE: Unenhanced axial CT scan of the brain is performed. Subsequently, following the IV adminis tration of 116 of [address] 320, CT angiogram of the head and neck was performed from the aortic arch t o the vertex. Images are reviewed in the axial, sagittal, and coronal planes. 3-D MIPS images are cre ated and assessed. IV contrast was administered without complication. All measurements were calculate d based on NASCET criteria. A dose lowering technique was utilized adhering to the principles of ALA RA. CT DOSE: 893.59 mGy.cm FINDINGS: Brain parenchyma: There is age-related involutional change noting mild subcortical and periventricula r microangiopathic disease. There is no hemorrhage, mass effect, or evidence of acute territorial isc hemia by CT criteria. There is no evidence of enhancing mass lesion on the angiogram phase images. Th e ventricles, sulci, and cisterns are normal in configuration. Montero-white matter differentiation is p reserved. No extra-axial fluid collection is seen. Thoracic aorta: Visualized portions of the thoracic aorta are normal in caliber. The aortic arch demo nstrates standard 3-vessel anatomy. Right carotid arterial system: The right common carotid artery is widely patent, as are the right int ernal and external carotid arteries. Left carotid arterial system: The left common carotid artery is widely patent, as are the left bakery pastry internship al and external carotid arteries. Vertebral arteries: The vertebral arteries are widely patent bilaterally and codominant. Subclavian arteries: Widely patent bilaterally. Intracranial vasculature: There is mild atherosclerotic calcification of the cavernous carotid arteri es The internal carotid arteries are patent at the skull base, as are the anterior and middle cerebra l arteries bilaterally. The vertebrobasilar system and the left posterior cerebral artery are widely patent. The proximal right posterior shoulder arteries patent. Suspect occlusion of a peripheral bran ch of the right posterior cerebral artery seen on axial image #89. The vertebral arteries are codomin ant. No aneurysm is seen. Jugular veins: A right internal jugular central venous infusion port is in place. Jugular veins are p atent bilaterally. Dural sinuses: Patent. Lung apices: Partially visualized upper lobe lung parenchyma appears clear. Soft tissues: The visualized pharyngeal soft tissues are normal in appearance noting angiographic pha se technique. The oropharyngeal airway appears widely patent. The thyroid gland is normal in size and heterogeneous in attenuation. The salivary glands are normal in appearance. There is left supra clav icular lymphadenopathy. A node on image #101 measures 2.3 x 1.6 cm. Mildly enlarged left cervical paulino in lymph nodes measure up to 11 mm in length. Skeletal structures: The skeletal structures are osteopenic. The calvarium appears intact. The cervic al spine is maintained noting multilevel spondylosis. No lytic or blastic lesion is seen. Orbits: The bony orbits are intact. Orbital contents are normal as visualized. Sinuses and mastoids: The paranasal sinuses are clear. The mastoid air cells are well pneumatized. IMPRESSION: 1. There is no hemorrhage, mass effect, or evidence of acute territorial ischemia by CT criteria. 2. Suspect occlusion of a peripheral branch of the right posterior cerebral artery. This may correspo nd to the small infarcts seen by MRI. 3. Otherwise unremarkable CT angiogram of the brain. 4. Unremarkable CT angiogram of the neck. 5. Left supraclavicular and cervical chain lymphadenopathy is again noted and remains suspicious for metastatic disease. ACT 112: Negative or not required by law. Electronically signed by: French Bower M.D. 11/07/2022 6:10 PM
--- NOTE | 2022-11-07 18:19 | History & Physical Report ---
Date of Service November 07, 2022 Assessment & Plan (1) Acute CVA (cerebrovascular accident): Plan: patient with acute CVA on MRI imaging was previously on apixaban reportedly for reduction of thrombophilia of malignancy remain on monitor to rule out atrial fibrillation repeat echocardiogram to rule out intracardiac shunt in situ Plavix therapy in addition apixaban pending neurology consultation. Pending CT angiography (2) Hypomagnesemia: Plan: hypomagnesemia noted and replete (3) Depression: Plan: continue paxil (4) Benign essential hypertension: Plan: chronic and stable continued atenolol (5) Elevated troponin: Plan: Patient with elevated troponin in the face of asymptomatic cardiac symptoms. Therefore we will trend this but this is likely demand ischemia. We will watch for arrhythmia and look at her echo for regional wall motion abnormalities as mentioned starting on a antiplatelet agent of Plavix in the face of an aspirin intolerance History of Present Illness Primary Care Provider: Kasey Mendez MD this patient was sent in from her oncology office after complaints of visual field cut led to MRI of the brain which led to concern for acute infarctions in the right supra lobe and inferior right thalamus. 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 Patient did receive chemotherapy today in the oncology office. Pending angiography of the brain. In July of this year patient had episode of syncope revealing no significant cause however an echocardiogram was performed which did not show any intra cardiac shunt because of the multiple areas of concern patient was admitted to evaluate for embolic source. In remainder of stroke work-up this will include repeat echocardiography and neurology consultation has an intolerance to aspirin will be started on Plavix therapy in addition to continuing her apixaban Allergies Allergy/AdvReac Type Severity Reaction Status Date / Time adhesive tape Allergy Intermediate localized Verified 10/27/22 10:34 skin reddness/irritation latex Allergy Intermediate localized Verified 10/27/22 10:34 skin reddness/irritation aspirin Allergy Mild facial Verified 10/27/22 10:34 flushing ciprofloxacin Allergy Unknown Rash Verified 10/27/22 10:34 Home Medications Medication Instructions Recorded Confirmed Type cholecalciferol (vitamin D3) 25 1,000 units PO QPM 11/09/18 08/26/22 History mcg (1,000 unit) capsule calcium carbonate 600 mg calcium 600 mg PO BIDM 02/08/19 08/26/22 History (1,500 mg) tablet digestive no.8-L.acidophilus 50 1 tab PO QPM 06/10/19 08/26/22 History million cell-pectin 100 mg tablet (Digestive Enzyme (acidophilus, pectin, bromelain)) magnesium oxide 800 mg PO QAM 01/28/22 08/26/22 History fluticasone propionate 50 2 spray intranasal HS #48 grams 02/14/22 08/26/22 Rx mcg/actuation nasal spray,suspension paroxetine HCl 10 mg tablet (Paxil) 10 mg PO QDB #90 tabs 04/08/22 08/26/22 Rx atorvastatin 20 mg tablet 20 mg PO HS #90 tabs 04/29/22 08/26/22 Rx cyanocobalamin (vitamin B-12) 1,000 mcg PO DAILY 06/26/22 08/26/22 History 1,000 mcg tablet (Vitamin B-12) folic acid 400 mcg tablet 0.4 mg PO QPM 06/26/22 08/26/22 History loratadine 10 mg tablet (Claritin) 10 mg PO UD PRN Allergy Symptoms 06/26/22 08/26/22 History acetaminophen 325 mg capsule 325 mg PO QID PRN Pain 07/14/22 08/26/22 History (Tylenol) ondansetron HCl 8 mg tablet 8 mg PO Q8H PRN Nausea 07/29/22 08/26/22 History atenolol 25 mg tablet 25 mg PO HS #90 tabs 08/13/22 08/26/22 Rx apixaban 2.5 mg tablet (Eliquis) 2.5 mg PO BID 08/26/22 08/26/22 History omeprazole 20 mg capsule,delayed 20 mg PO QAM #90 caps 09/18/22 Rx release Past Med/Surg History Medical History Anxiety Chronic interstitial cystitis Depression GERD (gastroesophageal reflux disease) History of DVT of lower extremity left leg History of endometrial cancer Hx of basal cell carcinoma Hyperlipidemia Hypertension Nausea and vomiting after administration of anesthetic agent Osteopenia Seasonal allergies 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 still inplace. will bring card for current port DOS. Hx of basal cell carcinoma excision Hx of tonsillectomy Port-A-Cath in place (07/02/22) Insertion of Right Internal Jugular Access Port with Fluoroscopy(Right) - Martin Clark DO, FACS Family History Mother Hypertension Malignant neoplasm of urinary bladder Denies family history of Ovarian cancer Prostate cancer Myocardial infarction Breast cancer Colorectal cancer Social History Smoking Status: Never smoker Tobacco Type: Cigarettes Age Started Using Tobacco: 20; Age Quit Using Tobacco: 22; packs per day: 0.5; Cigarettes Per Day: 10 or less; Second Hand Exposure: No; Do You Dip or Chew Tobacco: No; Hx Alcohol Use: No Hx Substance Use: No Preferred Language: Monegasque Communication Ability: Effective Visual Impairment: No Limitations Hearing Ability: Normal Ancillary Services Manager Required: No Beliefs That Will Affect Care: None marital status: Current Living Situation: Family Current Living Situation Comment: Lives with daughter Gardenia (JUD) current occupational status: retired How many Children do You have: 2 Feels Safe at Home: Yes Childhood Exposure to Second-Hand Smoke: Yes Diet: regular caffeine: Yes during the past year weight has: remained stable Dental Care, Regularly: Yes Physical Activity Frequency: 3-4 Times per Week Seatbelt Use: always Sunscreen Use: Yes Assistive Devices: None Review of Systems Review of Systems: Number review of system Physical Exam Physical Exam: the patient appeared well nourished and normally developed. Vital signs as documented. Head exam is normocephalic atraumatic Neck is without JVD, thyromegaly, or carotid bruits. Lungs are clear to auscultation, no focal loss of breath sounds Cardiac exam, Rhythm is regular.. No murmurs, rubs or gallops. Abdominal exam reveals normal bowel sounds, soft non tender, no masses Extremities are nonedematous and both pedal pulses are present Neurologic exam is alert and oriented, no focal loss of strength or sensation Skin is without bruises or rashes Psychologically is without concerns for anxiety or depression.. Results & Data Results & Data Vital Signs (Past 12 Hours) Vital Signs Temp Pulse Pulse Resp BP BP Pulse Ox 11/07/22 16:43 69 11/07/22 16:04 68 20 166/82 H 11/07/22 16:11 97.7 F 78 20 180/80 H 98 O2 Del Method 11/07/22 16:43 11/07/22 16:04 Room Air 11/07/22 16:11 Room Air ECG Additional Comments: EKG shows normal sinus rhythm. There was an EKG from July 2022 which was common on A-fib however in retrospect it may not particularly align with A-fib diagnosis. We will continue to asked cardiology to review this Code Status & VTE Plan VTE Prophylaxis Plan VTE Prophylaxis will be ordered: Yes PG Care Time/CCT Total # of Minutes Spent Total Time Spent with Patient: Total time spent is greater than 50% in coordination of care (as documented) at patient's floor/unit and/or counseling patient: Coding Level of Care Code 22872 INT INP/OBS CARE 3/75MIN Diagnoses Acute CVA (cerebrovascular accident) I63.9 Hypomagnesemia E83.42 Depression F32.9 Benign essential hypertension I10 Elevated troponin R77.8
[2022-11-07] MEDS ORDERED: CLOPIDOGREL BISULFATE 75 MG TAB PO ONE (18:45)
[2022-11-07] MEDS ORDERED: ALUMINUM/MAGNESIUM SUSP 30 ML UDC PO PRN (19:57)
[2022-11-07] MEDS ORDERED: ACETAMINOPHEN 325 MG TAB PO PRN (19:57)
[2022-11-07] MEDS ORDERED: PHARMACIST DISCHARGE MED REC CONSULT PRN (19:57)
[2022-11-07] MEDS ORDERED: ONDANSETRON INJ 2 MG/ML 2 ML VIAL IV PRN (19:57)
[2022-11-07] MEDS ORDERED: ADVANCED PROBIOTIC 1250 MG CAPSULE PO SCH (21:00)
[2022-11-07] MEDS ORDERED: FLUTICASONE PROPIONATE NA SPR 16 GM BTL SCH (21:00)
[2022-11-07] MEDS ORDERED: CHOLECALCIFEROL 1,000 UNITS 25 MCG TAB PO SCH (21:00)
[2022-11-07] MEDS ORDERED: ATENOLOL 25 MG TABLET PO SCH (21:00)
[2022-11-07] MEDS ORDERED: OLANZapine ZYDIS 5 MG ORALLY DIS. TAB PO SCH (21:00)
[2022-11-07] MEDS ORDERED: FOLIC ACID 400 MCG TAB PO SCH (21:00)
[2022-11-07] MEDS ORDERED: ATORVASTATIN 20 MG TAB PO SCH (21:00)
[2022-11-07] MEDS: APIXABAN 2.5 MG TAB PO SCH (21:11)
[2022-11-07] MEDS: FAMOTIDINE 10 MG TABLET PO SCH (21:12)
[2022-11-07] MEDS: dexAMETHasone 4 MG TAB PO SCH (21:12)
[2022-11-07] MEDS: diphenhydrAMINE Capsule 25 MG CAP PO SCH (21:13)
[2022-11-07] MEDS ORDERED: HEPARIN 100 UNIT/ML 5ML FLUSH FLUSH PRN (23:57)
[2022-11-08 06:30] LABS: Hematocrit (blood only) 23.9 % (37.0-47.0); Hemoglobin 7.8 g/dl (12.0-16.0); Mean Corpuscular Hemoglobin 33.8 pg (25.0-34.0); Mean Corpuscular Hgb Conc 32.6 g/dL (32.0-36.0); Mean Corpuscular Volume 103.5 fL (80.0-100.0); Platelet Count 134 K/uL (130-400); RDW Coefficient of Variation 21.9 % (11.5-14.5); RDW Standard Deviation 81.1 fL (36.4-46.3); Red Blood Count 2.31 M/uL (4.20-5.40); White Blood Count 25.19 K/ul (4.8-10.8)
[2022-11-08 06:51] LABS: Chol HDL Ratio 1.9 (0-5); Creatinine Clr Calc Pharmacy 51.4 ml/min; Est GFR (African American) 65.2 ml/min; Est GFR (Non-African American) 56.2 ml/min; Potassium 4.3 mmol/L (3.5-5.1)
[2022-11-08 07:04] LABS: Troponin I High Sensitivity 26.7 pg/ml (0-14)
[2022-11-08 07:05] LABS: Anisocytosis Present; Basophils # (auto) 0.05 K/uL (0-0.2); Basophils % (auto) 0.2 %; Immature Granulocytes # (auto) 0.37 K/uL (0.01-0.20); Immature Granulocytes % (auto) 1.5 %; Lymphocytes # (auto) 0.44 K/uL (1.2-3.4); Lymphocytes % (auto) 1.7 %; Monocytes # (auto) 0.37 K/uL (0.11-0.59); Monocytes % (auto) 1.5 %; Neutrophils # (auto) 23.96 K/uL (1.40-6.50); Neutrophils % (auto) 95.1 %; Polychromasia 1+; Tear Drop Cells 1+
--- NOTE | 2022-11-08 07:12 | Electrocardiogram Report ---
Test Reason : Blood Pressure : / mmHG Vent. Rate : 065 BPM Atrial Rate : 065 BPM P-R Int : 174 ms QRS Dur : 064 ms QT Int : 390 ms P-R-T Axes : 034 007 -10 degrees QTc Int : 405 ms Normal sinus rhythm When compared with ECG of 29-JUL-2022 23:43, Sinus rhythm has replaced Atrial fibrillation Inverted T waves have replaced nonspecific T wave abnormality in Inferior leads T wave inversion now evident in Anterior leads QT has shortened Confirmed by Niranjan Dalal ([id number]) on 11/08/2022 7:12:01 AM Referred By: REFERRED SELF Confirmed By:Ernesto Dalal
[2022-11-08] MEDS ORDERED: PARoxetine HCL 10 MG TAB PO SCH (07:30)
[2022-11-08 07:32] LABS: Estimated Average Glucose 126 mg/dl
[2022-11-08] MEDS ORDERED: CALCIUM CARBONATE 1250MG TAB PO SCH (08:00)
[2022-11-08] MEDS: FAMOTIDINE 10 MG TABLET PO SCH (08:35)
[2022-11-08] MEDS: APIXABAN 2.5 MG TAB PO SCH (08:35)
[2022-11-08] MEDS: dexAMETHasone 4 MG TAB PO SCH (08:35)
[2022-11-08] MEDS: diphenhydrAMINE Capsule 25 MG CAP PO SCH (08:36)
[2022-11-08] MEDS ORDERED: PANTOprazole 40 MG TAB PO SCH (09:00)
[2022-11-08] MEDS ORDERED: CYANOCOBALAMIN (B-12) 500 MCG TABLET PO SCH (09:00)
[2022-11-08] MEDS ORDERED: CLOPIDOGREL BISULFATE 75 MG TAB PO SCH (09:00)
[2022-11-08] MEDS ORDERED: MAGNESIUM OXIDE 400 MG TAB PO SCH (09:00)
--- NOTE | 2022-11-08 10:50 | XCELERA ---
[id number]
--- NOTE | 2022-11-08 12:05 | Neurology Consultation ---
Date of Consultation November 08, 2022 Assessment & Plan (1) Acute CVA (cerebrovascular accident): (2) Visual field defect: (3) Endometrial cancer: Plan patient has 2 tiny acute strokes, right occipital and right thalamic. The right thalamic lesion is not associated with any deficits. The right occipital lesion was associated with some decreased peripheral vision off to the left earlier this week, but clinically she is normal with no deficits, other focal signs, meningeal signs, or encephalopathy. The etiology of the stroke was likely secondary to ischemia from occlusion of the right posterior cerebral artery. She is at risk for ischemia and clots due to her chemotherapy cancer diagnosis. She is on Eliquis for a DVT risk, but this would not adequately prevent small vessel ischemic disease. MRI also showed old small vessel ischemic disease of a nonspecific nature. She has other risk factors for stroke including hypertension and dyslipidemia. Recommendations: 1. agree with clopidogrel 75 mg daily. 2. Continue Eliquis at current dose 3. her blood pressure seems quite controlled. 4. Continue atorvastatin at current dose. She would not be a high dose statin candidate given her lipid parameters 5. I have no further neurologic testing or treatment recommendations to make at this time. Please contact me if I can be of further assistance on this case. overall, I spent a total of 60 minutes on this case including review of records, review of MRI films (including with the patient and her daughter was present in the room), direct evaluation the patient at bedside, reports generation, and discussion of case with patient, daughter, and RN at bedside, and Dr. Blanco, including differential diagnosis and treatment options. History of Present Illness Reason for Consultation: patient is a 72-year-old, who I was asked to see at the request of Dr. Blanco, for neurologic consultation regarding stroke. Requesting Physician: Dr. Blanco Attending Physician: Greg Blanco MD History of Present Illness this patient has a history of endometrial /uterine cancer diagnosis several years ago post cisplatin and carboplatin chemotherapy and hysterectomy. Dr. Bud Sosa MD is her oncologist ( JORJE Armijo). She did well but early this year it was determined that she had some recurrent cancer and started chemotherapy again in June of this year. This week she is almost finished her 6th round of carboplatin and Gemzar. Because of the cancer / chemotherapy and blood clot in her left ankle, she was put on Eliquis earlier this year. She was doing well when on November 03 she noted decreased vision off to the left peripherally. She felt it was her left eye. She saw her broadcast operations manager November 05 who felt that her eyes were fine. An MRI of the brain with without contrast was ordered for November 07. This showed no metastases or tumor but did show 2 very small acute strokes 1 in the right occipital with a in the other in the right posterior thalamus. There was also mild old small vessel ischemic disease present, nonspecific nature. She was admitted for evaluation. CT scan of the head was unremarkable and CT angiography of the neck was normal. CT angiography of the head revealed an oc cluded right posterior cerebral artery. Laboratory studies revealed a mildly low magnesium and elevated alk-phos. Her white count has been elevated and TSH and urinalysis were unremarkable. She had been taking dexamethasone regularly, as a pretreatment prior to chemotherapy. This morning the patient feels at baseline, with no visual acuity problems. She has no weakness, numbness, or dysesthesias in the limbs, other vision problems, confusion, or speech problems. Her balance is unremarkable. Allergies Allergy/AdvReac Type Severity Reaction Status Date / Time adhesive tape Allergy Intermediate localized Verified 10/27/22 10:34 skin reddness/irritation latex Allergy Intermediate localized Verified 10/27/22 10:34 skin reddness/irritation aspirin Allergy Mild facial Verified 10/27/22 10:34 flushing ciprofloxacin Allergy Unknown Rash Verified 10/27/22 10:34 Home Medications Medication Instructions Recorded Confirmed Type cholecalciferol (vitamin D3) 25 1,000 units PO QPM 11/09/18 11/07/22 History mcg (1,000 unit) capsule magnesium oxide 800 mg PO QAM 01/28/22 11/07/22 History paroxetine HCl 10 mg tablet (Paxil) 10 mg PO QDB #90 tabs 04/08/22 11/07/22 Rx atorvastatin 20 mg tablet 20 mg PO HS #90 tabs 04/29/22 11/07/22 Rx cyanocobalamin (vitamin B-12) 1,000 mcg PO DAILY 06/26/22 11/07/22 History 1,000 mcg tablet (Vitamin B-12) folic acid 400 mcg tablet 0.4 mg PO QPM 06/26/22 11/07/22 History loratadine 10 mg tablet (Claritin) 10 mg PO UD PRN Allergy Symptoms 06/26/22 11/07/22 History ondansetron HCl 8 mg tablet 8 mg PO Q8H PRN Nausea 07/29/22 11/07/22 History atenolol 25 mg tablet 25 mg PO HS #90 tabs 08/13/22 11/07/22 Rx apixaban 2.5 mg tablet (Eliquis) 2.5 mg PO BID 08/26/22 11/07/22 History omeprazole 20 mg capsule,delayed 20 mg PO QAM #90 caps 09/18/22 11/07/22 Rx release Bifidobacterium infantis 4 mg 4 mg PO DAILY 11/07/22 11/07/22 History capsule (Align) Calcium Citrate Tab 600 mg PO BID 11/07/22 11/07/22 History Eye Vitamin Tab 1 tab PO DAILY 11/07/22 11/07/22 History acetaminophen 650 mg 650 mg PO Q8H PRN Pain 11/07/22 11/07/22 History tablet,extended release (Tylenol Arthritis Pain) dexamethasone 4 mg tablet See Rx Instructions .Route .COMPLEX 11/07/22 11/07/22 History diphenhydramine HCl 25 mg capsule See Rx Instructions .Route .COMPLEX 11/07/22 11/07/22 History (Benadryl) famotidine 20 mg tablet (Pepcid) See Rx Instructions .Route .COMPLEX 11/07/22 11/07/22 History fluticasone propionate 50 2 spray intranasal HS PRN allergies 11/07/22 11/07/22 History mcg/actuation nasal spray,suspension magnesium oxide 400 mg PO QPM 11/07/22 11/07/22 History Patient History Medical History Anxiety Chronic interstitial cystitis Depression GERD (gastroesophageal reflux disease) History of DVT of lower extremity left leg History of endometrial cancer Hx of basal cell carcinoma Hyperlipidemia Hypertension Nausea and vomiting after administration of anesthetic agent Osteopenia Seasonal allergies 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 still inplace. will bring card for current port DOS. Hx of basal cell carcinoma excision Hx of tonsillectomy Port-A-Cath in place (07/02/22) Insertion of Right Internal Jugular Access Port with Fluoroscopy(Right) - Martin Clark DO, FACS Family History Mother Hypertension Malignant neoplasm of urinary bladder Denies family history of Ovarian cancer Prostate cancer Myocardial infarction Breast cancer Colorectal cancer Social History Smoking Status: Former smoker Tobacco Type: Cigarettes Age Started Using Tobacco: 20; Age Quit Using Tobacco: 22; packs per day: 0.5; Cigarettes Per Day: 10 or less; Second Hand Exposure: No; Do You Dip or Chew Tobacco: No; Hx Alcohol Use: No Hx Substance Use: No Preferred Language: Welsh Communication Ability: Effective Visual Impairment: No Limitations Hearing Ability: Normal Postal Service Window Clerk Required: No Beliefs That Will Affect Care: None marital status: Current Living Situation: Family Current Living Situation Comment: Lives at home with daughter irena current occupational status: retired How many Children do You have: 2 Feels Safe at Home: Yes Childhood Exposure to Second-Hand Smoke: Yes Diet: regular caffeine: Yes during the past year weight has: remained stable Dental Care, Regularly: Yes Physical Activity Frequency: 3-4 Times per Week Seatbelt Use: always Sunscreen Use: Yes Assistive Devices: None Review of Systems Constitutional: no fever, no fatigue and no weakness Eyes: no diplopia, no eye pain and no worsening vision Ear, Nose, Mouth, Throat: no ear pain, no tinnitus, no hearing loss, no dizziness, no snoring, no hoarseness and no dysphagia Respiratory: no cough and no dyspnea Cardiovascular: no chest pain, no palpitations and no lightheadedness Gastrointestinal: no abdominal pain, no nausea and no vomiting Genitourinary: no dysuria, no urinary frequency and no urinary incontinence Musculoskeletal: no back pain, no neck pain, no radicular pain, no joint pain and no myalgia Integumentary: no rash and no lesions Neurologic: no gait abnormality, no localized weakness, no generalized weakness, no tingling, no numbness, no tremor(s), no abnormal movements, no headache(s), no abnormal speech, no confusion and no memory loss Psychiatric: no depression, no irritability, no anxiety, no difficulty concentrating, no confusion and no hallucinations Endocrine: no fatigue and no flushing Hematologic / Lymphatic: no easy bleeding and no easy bruising Allergy / Immunological: no urticaria and no problem reported Exam (Neuro) Physical Exam: The patient is Left-handed. The patient is awake, alert, and attentive. Speech is normal without any aphasia or dysarthria. The patient can name objects, repeat phrases, and has normal spontaneous speech. Mentation and thought processes are intact, with orientation to person, place and time, and normal fund of knowledge. Attention and concentration are normal. Mood and affect are normal and appropriate. General appearance and grooming are normal. Short and long-term memory are intact. Pupils are 4 mm bilaterally and reactive to light. Extraocular eye muscles are intact without nystagmus. Visual acuity and visual wolfe seem normal grossly to confrontation. I note no visual field deficits bilaterally. There are no deficits to sensation in the face in all 3 distributions of the fifth cranial nerve bilaterally. Corneal reflexes are positive bilaterally. Facial strength and symmetry was normal bilaterally. Hearing seems normal bilaterally. Palate moves well without asymmetry. There is normal sternocleidomastoid and trapezius (shoulder shrug) strength bilaterally. Tongue is midline with good strength bilaterally. Neck has a full range of motion without discomfort. There are no cervical bruits bilaterally. There are no cranial or ocular bruits. Heart is without murmur. There is a regular rhythm and rate. Cervical, thoracic, and lumbar spine are nontender to palpation. gait was not tested but stance sitting up in bed is. With outstretched arms there is no drift. There are no resting, postural, or action tremors. There is no ataxia with finger to nose testing. There is good facility in the hands. No other abnormal involuntary movements are noted. Motor strength is 5/5 diffusely in the arms bilaterally including deltoids, biceps, triceps, brachioradialis, wrist flexors and extensors, health care marketing manager, and intrinsic hand muscles. Motor strength is 5/5 diffusely in the legs bilaterally including hip flexors, quadriceps, hamstrings, gastrocnemius, tibialis anterior, tibialis posterior, and Peroneii muscles. Toe extensors are normal and there is good bulk in the extensor digitorum brevis muscles bilaterally. The limbs have good tone without rigidity or spasticity. There is no atrophy noted in the muscles. Muscle bulk is normal, there is no tenderness to p alpation, no myotonia to percussion, and no fasciculations seen. Sensory examination is intact to touch and pin throughout all 4 limbs diffusely. Reflexes are 1/4 in the biceps, triceps, brachioradialis, and quadriceps tendons bilaterally. Achilles tendon reflexes are absent bilaterally. There is no clonus bilaterally. Toes are downgoing with plantar stimulation bilaterally. Peripheral pulses are present and of normal quality distally in all 4 limbs. There is no peripheral edema noted in the limbs. Results & Data Vital Signs (Past 12 Hours) Vital Signs Temp Pulse Pulse Resp BP Pulse Ox O2 Del Method 11/08/22 11:29 36.7 C 61 16 101/64 97 Room Air 11/08/22 08:57 67 11/08/22 07:54 36.4 C L 61 16 146/78 H 99 Room Air 11/08/22 03:42 36.6 C 63 16 105/64 97 Room Air PG Care Time/CCT Total # of Minutes Spent Total Time Spent with Patient: Total time spent is greater than 50% in coordination of care (as documented) at patient's floor/unit and/or counseling patient: Coding Level of Care Code 27345 INT INP/OBS CARE 2/55MIN Diagnoses Acute CVA (cerebrovascular accident) I63.9 Visual field defect H53.40 Endometrial cancer C54.1 Time Spent (min) 60
[2022-11-08] MEDS ORDERED: STROKE PATIENT DISCHARGE STA (12:25)
[2022-11-08] MEDS ORDERED: Nursing to Pharmacy Communication SCH (12:30)
--- NOTE | 2022-11-08 16:35 | Discharge Summary ---
Date of Service November 08, 2022 Admission HPI Per Admitting Provider this patient was sent in from her oncology office after complaints of visual field cut led to MRI of the brain which led to concern for acute infarctions in the right supra lobe and inferior right thalamus. 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 Patient did receive chemotherapy today in the oncology office. Pending angiography of the brain. In July of this year patient had episode of syncope revealing no significant cause however an echocardiogram was performed which did not show any intra cardiac shunt because of the multiple areas of concern patient was admitted to evaluate for embolic source. In remainder of stroke work-up this will include repeat echocardiography and neurology consultation has an intolerance to aspirin will be started on Plavix therapy in addition to continuing her apixaban Principal Diagnosis acute stroke concurrent treatment of endometrial cancer Discharge Data Allergies Allergy/AdvReac Type Severity Reaction Status Date / Time adhesive tape Allergy Intermediate localized Verified 10/27/22 10:34 skin reddness/irritation latex Allergy Intermediate localized Verified 10/27/22 10:34 skin reddness/irritation aspirin Allergy Mild facial Verified 10/27/22 10:34 flushing ciprofloxacin Allergy Unknown Rash Verified 10/27/22 10:34 Consultations 11/07/22 16:36 ED Decision to Admit Stat 11/07/22 19:57 Consult Neurology Routine Ordered Studies 11/07/22 16:33 CT angio head w con Stat CT angio neck with con Stat CT head/brain wo con Stat Hospital Course (1) Acute CVA (cerebrovascular accident): patient with acute CVA on MRI imaging was previously on apixaban reportedly for reduction of thrombophilia of malignancy no atrial fibrillation seen repeat echocardiogram to rule out intracardiac shunt Plavix therapy in addition apixaban endorsed by neurology consultation. angiography of head and neck suggests a occlusion of the peripheral branch of the right posterior cerebral artery which may correspond to infarct seen on MRI angiography of head and neck there are some lymphadenopathy seen which may be suspicious for metastatic disease in the supraclavicular and cervical chain Echo does not show intracardiac shunt or thrombus source (2) Hypomagnesemia: hypomagnesemia noted and replete (3) Depression: continue paxil (4) Benign essential hypertension: chronic and stable continued atenolol (5) Elevated troponin: Patient with elevated troponin in the face of asymptomatic cardiac symptoms. Therefore we will trend this but this is likely demand ischemia. We will watch for arrhythmia and look at her echo for regional wall motion abnormalities as mentioned starting on a antiplatelet agent of Plavix in the face of an aspirin intolerance (6) Uterine cancer: some lymphadenopathy seen on head neck examination with raising concern from radiology regarding metastatic disease concurrent treatment with oncology Total Time Total Time Spent Total Time Spent (In Minutes): it required greater than 30 minutes to prepare this patient for discharge Discharge Plan Discharge Items Patient Disposition: Home - Self-Care Reason For Visit: MULTIPLE SMALL ACUTE CVA Discharge Diagnosis: acute CVA Condition on Discharge: Fair Activity: Resume your previous activity Non-emergency contact: Primary Care Provider Call non-emergency contact if: your symptoms worsen Follow-up/Referrals: Kasey Mendez MD [Primary Care Provider] - Diet: Regular Addtl Attending Provider Instructions: Risk Factors for Stroke: You can reduce your chances of stroke by working with your medical provider to adopt a healthy lifestyle. Some specific ways to lower your chance of stroke are: * If you are a smoker, now is the time to stop smoking cigarettes * If you are diabetic, improve the control of your blood sugars * Avoid excessive amounts of alcohol * Control high blood pressure * Lose weight if you are overweight * Be sure to lead an active lifestyle * Eat a healthy diet low in salt, cholesterol and fat You should know about other risk factors for stroke that you are unable to control. These include: * Age 55 years or older * Male gender * Certain racial groups: , or / * Family History of Stroke, Mini stroke or Heart Attack * Sickle Cell Disease Follow Up: It is important for you to keep your follow up appointments with your medical provider. Who to Call and When: Medical Emergencies: Call 911 immediately if you experience any of the following warning signs and symptoms of Stroke: * Sudden numbness or weakness of the face, arm or leg, especially on one side of the body * Sudden confusion, trouble speaking or understanding * Sudden trouble seeing in one or both eyes * Sudden trouble walking, dizziness, loss of balance or coordination * Sudden severe headache with no cause Do not delay calling 911 if you experience any warning signs or symptoms of a stroke. Delay in seeking medical attention may affect what treatments can be given to you. . Pending Studies at Discharge: No Stand-Alone Forms: Walkabout, Smoking Cessation Medications and DC Order Prescriptions: New clopidogrel 75 mg Tablet 75 mg PO QAM Qty: 30 4RF Continued cholecalciferol (vitamin D3) 1,000 unit capsule 1,000 units PO QPM paroxetine HCl [Paxil] 10 mg tablet 10 mg PO QDB Qty: 90 3RF atorvastatin 20 mg tablet 20 mg PO HS Qty: 90 3RF atenolol 25 mg tablet 25 mg PO HS Qty: 90 3RF omeprazole 20 mg capsule,delayed release(DR/EC) 20 mg PO QAM Qty: 90 3RF magnesium oxide 400 mg magnesium capsule 800 mg PO QAM ondansetron HCl 8 mg Tablet 8 mg PO Q8H PRN (Reason: Nausea) Eliquis 2.5 mg Tablet 2.5 mg PO BID acetaminophen [Tylenol Arthritis Pain] 650 mg Tablet Extended Release 650 mg PO Q8H PRN (Reason: Pain) Align 4 mg Capsule 4 mg PO DAILY magnesium oxide 400 mg magnesium Tablet 400 mg PO QPM Calcium Citrate Tab 600 mg PO BID fluticasone propionate 50 mcg/actuation spray,suspension 2 spray INTNAS HS PRN (Reason: allergies) famotidine [Pepcid] 20 mg Tablet See Rx Instructions .ROUTE .COMPLEX Rx Instructions: Take 20 mg pepcid in am the day before chemo, the day of chemo take 20mg pepcid in am & pm, the day after chemo take 20mg in am. diphenhydramine HCl [Benadryl] 25 mg Capsule See Rx Instructions .ROUTE .COMPLEX Rx Instructions: Take 25mg benadryl in am the day before chemo, the day of chemo takes 25 mg in am & pm, the day after chemo take 25mg in am. dexamethasone 4 mg Tablet See Rx Instructions .ROUTE .COMPLEX Rx Instructions: Take 8 mg in am day before chemo, day of chemo take 8 mg in pm, day after chemo take 8 mg in am. Eye Vitamin Tab 1 tab PO DAILY cyanocobalamin (vitamin B-12) [Vitamin B-12] 1,000 mcg Tablet 1,000 mcg PO DAILY folic acid 400 mcg Tablet 0.4 mg PO QPM loratadine [Claritin] 10 mg Tablet 10 mg PO UD PRN (Reason: Allergy Symptoms) Discharge Orders: Discharge Order (Routine); Ordered 11/08/22 Ordered By: Greg E. Covaleski Krames/Other Patient Handouts: Discharge Instructions for Stroke Admission Data Admit Date/Time: 11/07/22 18:11 Attending Provider: Greg Blanco Admit Provider: Greg lBanco Primary Care Provider: Kasey Mendez Other Providers: Will Ann ; Jeffery Garcia Other Interventions: Discharge Summary Assessment (RN) Last Done: 11/08/22 12:55 Coding Level of Care Code 60079 INP/OBS DISCH >30 MIN Diagnoses Acute CVA (cerebrovascular accident) I63.9 Hypomagnesemia E83.42 Depression F32.9 Benign essential hypertension I10 Elevated troponin R77.8 Uterine cancer C55
[2022-11-09] MEDS ORDERED: CLOPIDOGREL BISULFATE 75 MG TAB PO SCH
--- NOTE | 2022-11-09 06:55 | Electrocardiogram Report ---
Test Reason : Blood Pressure : / mmHG Vent. Rate : 063 BPM Atrial Rate : 063 BPM P-R Int : 154 ms QRS Dur : 090 ms QT Int : 432 ms P-R-T Axes : 065 014 005 degrees QTc Int : 442 ms Sinus rhythm with Premature atrial complexes Otherwise normal ECG When compared with ECG of 07-NOV-2022 16:37, Premature atrial complexes are now Present Criteria for Anteroseptal infarct are no longer Present ST no longer depressed in Anterior leads T wave inversion no longer evident in Anterior leads Confirmed by Niranjan Dalal ([id number]) on 11/09/2022 6:54:55 AM Referred By: REFERRED SELF Confirmed By:Ernesto Dalal
== END 2022-11-08 13:57 | disposition home or self-care (01) | DRG 66 ==
LOC: ED 16:03 → 2S 18:11

== ENCOUNTER 2022-11-27 11:43 | Inpatient (IN) ==
[2022-11-27] MEDS ORDERED: ONDANSETRON 4 MG OD TAB PO STA (13:03)
[2022-11-27 13:27] LABS: Hematocrit (blood only) 24.2 % (37.0-47.0); Mean Corpuscular Hemoglobin 34.9 pg (25.0-34.0); Mean Corpuscular Hgb Conc 33.1 g/dL (32.0-36.0); Mean Corpuscular Volume 105.7 fL (80.0-100.0); Mean Platelet Volume 10.5 fL (9.4-12.4); Nucleated RBC # (auto) 0.08 K/uL (0-0.12); Nucleated RBC % (auto) 0.3 %; Platelet Count 166 K/uL (130-400); RDW Coefficient of Variation 22.5 % (11.5-14.5); RDW Standard Deviation 86.5 fL (36.4-46.3); Red Blood Count 2.29 M/uL (4.20-5.40)
[2022-11-27 13:46] LABS: Albumin Globulin Ratio 1.4 (0.9-2); Albumin Level 3.9 gm/dl (3.4-5.0); BUN Creatinine Ratio 14.5 (10-20); Bilirubin,Total 0.4 mg/dl (0.2-1.0); Calcium 8.9 mg/dl (8.6-10.3); Creatinine Clr Calc Pharmacy 45.8 ml/min; Est GFR (African American) 58.1 ml/min; Est GFR (Non-African American) 50.1 ml/min; Globulin 2.7 gm/dl (2.5-4.0); Potassium 3.8 mmol/L (3.5-5.1); Total Protein 6.6 gm/dl (6.0-8.3)
[2022-11-27 13:51] LABS: Troponin I High Sensitivity 22.5 pg/ml (0-14)
[2022-11-27 14:02] LABS: INR 1.1 (0.9-1.1); Partial Thromboplastin Ratio 1.1; Partial Thromboplastin Time 29.8 Seconds (21.0-31.0); Prothrombin Time 11.6 Seconds (9.0-12.0)
--- NOTE | 2022-11-27 14:32 | Emergency Department Note ---
History of Present Illness General Chief complaint: Weakness Stated complaint: SYNCOPE THIS MORNING, MIGHT NEED BLOOD TRANSFUSION Time Seen by Provider: 11/27/22 14:11 History of Present Illness 72-year-old female presents emergency department has a history of cancer currently being treated at the cancer [facility] center has a history of anemia. Patient had a near syncopal episode this morning when she was getting out of the shower. Yesterday the patient felt extremely weak. Patient in the past has required blood transfusions. Patient did not hit her head today reportedly she was lowered to the floor and landed on her buttocks. Patient did not hit her head she is on Eliquis she is on Plavix. Family is present and states that she is extremely weak very tired and has a low hemoglobin. There is no other current complaints of chest pain shortness of breath nausea vomiting or abdominal pain. There are no other mitigating or alleviating factors Home Medications Medication Instructions Recorded Confirmed Type cholecalciferol (vitamin D3) 25 1,000 units PO QPM 11/09/18 11/27/22 History mcg (1,000 unit) capsule magnesium oxide 800 mg PO PM 01/28/22 11/27/22 History paroxetine HCl 10 mg tablet (Paxil) 10 mg PO QDB #90 tabs 04/08/22 11/27/22 Rx atorvastatin 20 mg tablet 20 mg PO HS #90 tabs 04/29/22 11/27/22 Rx cyanocobalamin (vitamin B-12) 1,000 mcg PO DAILY 06/26/22 11/27/22 History 1,000 mcg tablet (Vitamin B-12) folic acid 400 mcg tablet 0.4 mg PO QPM 06/26/22 11/27/22 History loratadine 10 mg tablet (Claritin) 10 mg PO UD PRN Allergy Symptoms 06/26/22 11/27/22 History atenolol 25 mg tablet 25 mg PO HS #90 tabs 08/13/22 11/27/22 Rx apixaban 2.5 mg tablet (Eliquis) 2.5 mg PO BID 08/26/22 11/18/22 History omeprazole 20 mg capsule,delayed 20 mg PO QAM #90 caps 09/18/22 11/27/22 Rx release Bifidobacterium infantis 4 mg 4 mg PO DAILY 11/07/22 11/27/22 History capsule (Align) Calcium Citrate Tab 600 mg PO BID 11/07/22 11/27/22 History Eye Vitamin Tab 1 tab PO DAILY 11/07/22 11/27/22 History acetaminophen 650 mg 650 mg PO Q8H PRN Pain 11/07/22 11/27/22 History tablet,extended release (Tylenol Arthritis Pain) fluticasone propionate 50 2 spray intranasal HS PRN allergies 11/07/22 11/27/22 History mcg/actuation nasal spray,suspension clopidogrel 75 mg tablet 75 mg PO QAM #30 tabs 11/08/22 11/27/22 Rx Allergies Allergy/AdvReac Type Severity Reaction Status Date / Time adhesive tape Allergy Intermediate localized Verified 11/18/22 12:01 skin reddness/irritation latex Allergy Intermediate localized Verified 11/18/22 12:01 skin reddness/irritation aspirin Allergy Mild facial Verified 11/18/22 12:01 flushing ciprofloxacin Allergy Unknown Rash Verified 11/18/22 12:01 Past Med/Surg History Medical History Anxiety Chronic interstitial cystitis Depression GERD (gastroesophageal reflux disease) History of DVT of lower extremity left leg History of endometrial cancer Hx of basal cell carcinoma Hyperlipidemia Hypertension Nausea and vomiting after administration of anesthetic agent Osteopenia Seasonal allergies 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 still inplace. will bring card for current port DOS. Hx of basal cell carcinoma excision Hx of tonsillectomy Port-A-Cath in place (07/02/22) Insertion of Right Internal Jugular Access Port with Fluoroscopy(Right) - Martin Clark DO, FACS Family History Mother Hypertension Malignant neoplasm of urinary bladder Denies family history of Ovarian cancer Prostate cancer Myocardial infarction Breast cancer Colorectal cancer Social History Smoking Status: Never smoker Tobacco Type: Cigarettes Age Started Using Tobacco: 20; Age Quit Using Tobacco: 22; packs per day: 0.5; Cigarettes Per Day: 10 or less; Second Hand Exposure: No; Do You Dip or Chew Tobacco: No; Hx Alcohol Use: No Hx Substance Use: No Preferred Language: Bangladeshi Communication Ability: Effective Visual Impairment: No Limitations Hearing Ability: Normal Solutions Analyst Required: No Beliefs That Will Affect Care: None marital status: Current Living Situation: Family Current Living Situation Comment: Lives at home with daughter irena current occupational status: retired How many Children do You have: 2 Feels Safe at Home: Yes Childhood Exposure to Second-Hand Smoke: Yes Diet: regular caffeine: Yes during the past year weight has: remained stable Dental Care, Regularly: Yes Physical Activity Frequency: 3-4 Times per Week Seatbelt Use: always Sunscreen Use: Yes Assistive Devices: None Review of Systems A total of 10 systems reviewed and were otherwise negative Constitutional: + weakness Physical Exam Vital Signs Vital Signs - 24 hr 11/27/22 11:53 11/27/22 14:19 11/27/22 14:19 Temperature 36.5 C Temperature Source Temporal Artery Scan Pulse Rate 66 Pulse Rate [Apical] 66 Pulse Rhythm [Apical] Regular Respiratory Rate 18 18 Respiratory Effort / Characteristics Non-Labored Non-Labored Spontaneous Respiratory Depth Normal Normal Respiratory Pattern Regular Regular Blood Pressure 113/71 Blood Pressure [Right Arm] 130/71 Blood Pressure Mean 85 Blood Pressure Mean [Right Arm] 90 Blood Pressure Position [Right Arm] Lying Pulse Oximetry 100 98 98 Oxygen Delivery Method Room Air Room Air Sepsis Recent Fever Within 48 Hours No Sepsis New/Unexplained Change in Mental Status N/A Sepsis Action Taken by Nursing No Action Required GENERAL: Patient is awake alert in no acute distress patient is resting comfortably and showing no signs of anxiety EYES: The conjunctivae are clear. The pupils are round and reactive. EARS, NOSE, MOUTH AND THROAT: The nose is without any evidence of any deformity. Mucous membranes are moist. Tongue is midline. NECK: The neck is nontender and supple. RESPIRATORY: Normal respiratory effort is noted there is no evidence of wheezing rhonchi or rales Chest: Port present in the right subclavian CARDIOVASCULAR: Regular rate and rhythm noted there no murmurs rubs or gallops normal S1 normal S2. GASTROINTESTINAL: The abdomen is soft. Abdomen is nontender. BACK: No midline tenderness or or step-off noted range of motion in flexion extension as well as rotation no signs of muscle spasm noted MUSCULOSKELETAL/EXTREMITIES: There is no evidence of gross deformity full range of motion is noted in the hips and shoulders. SKIN: There is no obvious evidence of any rash. There are no petechiae, pallor o r cyanosis noted. NEUROLOGIC: Patient is awake alert and oriented x3 strength is symmetric Course Reevaluation(s) Reevaluation #1: Patient is resting in no distress on repeat exam Time: 15:20 Consultations Consultation #1: Case was discussed with the [facility] hospitalist for admission for anemia. I have indicated to them that the family states that when she has a low hemoglobin the oncologist recommends transfusion Time: 15:20 Administered Medications Discontinued Medications Ondansetron HCl (Ondansetron 4 Mg Od Tab) 4 mg PO NOW STA Stop: 11/27/22 13:04 Last Admin: 11/27/22 13:09 Dose: 4 mg Documented By: TED Medical Decision Making Medical Records Attestation: I reviewed the patient's medical records. Home Medications Current Medication List: was personally reviewed by me Laboratory Data Attestation: I reviewed the patient's lab results. Patient has an elevated white blood cell count and a low hemoglobin in comparison she has had both of these before and research of prior CBCs 11/27/22 12:45 11/27/22 12:45 Lab Results 11/27/22 11/27/22 11/27/22 Range/Units 12:45 12:45 12:45 WBC 25.80 H (4.8-10.8) K/ul RBC 2.29 L (4.20-5.40) M/uL Hgb 8.0 L (12.0-16.0) g/dl Hct 24.2 L (37.0-47.0) % MCV 105.7 H (80.0-100.0) fL MCH 34.9 H (25.0-34.0) pg MCHC 33.1 (32.0-36.0) g/dL RDW Std Deviation 86.5 H (36.4-46.3) fL RDW Coeff of Elie 22.5 H (11.5-14.5) % Plt Count 166 (130-400) K/uL MPV 10.5 (9.4-12.4) fL Absolute Nucleated RBC 0.08 (0-0.12) K/uL Nucleated RBC % (auto) 0.3 % PT 11.6 (9.0-12.0) Seconds INR 1.1 (0.9-1.1) APTT 29.8 (21.0-31.0) Seconds PTT Ratio 1.1 Sodium 137 (136-145) mmol/L Potassium 3.8 (3.5-5.1) mmol/L Chloride 102 (98-107) mmol/L Carbon Dioxide 28 (21-32) mmol/L Anion Gap 7 (3-11) BUN 16 (6-23) mg/dl Creatinine 1.10 (0.6-1.2) mg/dl Est Cr Clr Drug Dosing 45.8 ml/min Est GFR ( Amer) 58.1 ml/min Est GFR (Non-Af Amer) 50.1 ml/min BUN/Creatinine Ratio 14.5 (10-20) Glucose 108 H (70-99(Fasting)) mg/dl Calcium 8.9 (8.6-10.3) mg/dl Total Bilirubin 0.4 (0.2-1.0) mg/dl AST 18 (13-39) U/L ALT 15 (7-52) U/L Alkaline Phosphatase 123 H (34-104) U/L Troponin I High Sens 22.5 H (0-14) pg/ml Total Protein 6.6 (6.0-8.3) gm/dl Albumin 3.9 (3.4-5.0) gm/dl Globulin 2.7 (2.5-4.0) gm/dl Albumin/Globulin Ratio 1.4 (0.9-2) ECG Data Attestation: I personally reviewed and interpreted this ECG as follows: Additional Comments: EKG interpreted by me sinus rhythm rate of 60; PACs present no obvious ST segment elevation or depression normal axis Telemetry ordered by me sinus rhythm rate of 60 MDM Narrative Medical decision making differential diagnosis includes near syncope, syncope, vasovagal syncope, anemia, cardiac dysrhythmia, deconditioning Plan is to check labs, EKG External medical records were reviewed by me, I also admitted this patient for similar episode in July Independent history was provided to me by the patient's daughter at bedside Impression & Plan Near syncope, Anemia, Leukocytosis Discharge Plan Visit Data Chief Complaint: Weakness Stated Complaint: SYNCOPE THIS MORNING, MIGHT NEED BLOOD TRANSFUSION ED Provider: Martin Villalobos Discharge Problem: Near syncope, Anemia, Leukocytosis Patient Disposition: Admitted As Inpatient Forms Stand Alone Forms: My [facility] Prescriptions Prescriptions: No Action cholecalciferol (vitamin D3) 1,000 unit capsule 1,000 units PO QPM paroxetine HCl [Paxil] 10 mg tablet 10 mg PO QDB Qty: 90 3RF Rx Instructions: Takes daily at 12:30 Pm atorvastatin 20 mg tablet 20 mg PO HS Qty: 90 3RF atenolol 25 mg tablet 25 mg PO HS Qty: 90 3RF omeprazole 20 mg capsule,delayed release(DR/EC) 20 mg PO QAM Qty: 90 3RF magnesium oxide 400 mg magnesium capsule 800 mg PO PM Eliquis 2.5 mg Tablet 2.5 mg PO BID acetaminophen [Tylenol Arthritis Pain] 650 mg Tablet Extended Release 650 mg PO Q8H PRN (Reason: Pain) Align 4 mg Capsule 4 mg PO DAILY Calcium Citrate Tab 600 mg PO BID fluticasone propionate 50 mcg/actuation spray,suspension 2 spray INTNAS HS PRN (Reason: allergies) Eye Vitamin Tab 1 tab PO DAILY clopidogrel 75 mg Tablet 75 mg PO QAM Qty: 30 4RF cyanocobalamin (vitamin B-12) [Vitamin B-12] 1,000 mcg Tablet 1,000 mcg PO DAILY folic acid 400 mcg Tablet 0.4 mg PO QPM loratadine [Claritin] 10 mg Tablet 10 mg PO UD PRN (Reason: Allergy Symptoms) Referrals Referrals: Kasey Mendez MD [Primary Care Provider] -
--- NOTE | 2022-11-27 14:48 | History & Physical Report ---
Date of Service November 27, 2022 Assessment & Plan (1) Near syncope: Plan: -Admit to med tele -Currently stable -At this time the patient's pre-syncopal episode is most likely due to a vaso- vagal or orthostatic hypotensive episode. -The patient has had similar episodes like this in the past, she is still on atenolol and took a hot shower just prior to the event occurring today -No seizure-like activity, no LOC, no trauma or focal neurologic defects on exam, patient is still on Eliquis and Plavix so low suspicions for CVA at this time -Will continue to monitor on tele for possible arrhythmia, had a TTE on 11/08 that was WNL -Will give 500 mL NSS on admission and hold atenolol for now; may need to reduce or hold atenolol on discharge -Fall precautions and am orthostatic vitals ordered -Home Eliquis for DVT PPX -HH Diet -AM CBC, CMP, Mag,PT/INR (2) Leukocytosis: Plan: -Patient noted to have a significant leukocytosis of 25 today -No recent fevers, urinary, pulmonary, or GI symptoms -No wounds or signs of UNIX ANALYST infection -Likely due to her recent dose of Neulasta after her last dose of chemotherapy approximately 2 weeks ago -Cannot rule out infection at this time as she is immunocompromised -Will obtain blood cultures, UA and culture, CXR, and procal for further evaluation -Will hold antibiotics at this time as she is stable and non-toxic appearing -Oncology consult placed (3) Anemia: Plan: -Hgb at 8.0 today with MCV of 105 -Will speak with Heme/Onc to see if they would want her to have a transfusion prior to DC -Continue folic acid and B12 (4) Elevated troponin: Plan: -Initial high sen trop elevated at 22 -Patient is asymptomatic and without acute ST segment or T-wave changes -Likely due to her recent episode -Will repeat a 2 hour high sen trop now and continue to monitor on tele (5) Uterine cancer: Plan: -Follows with Dr. Campos -Completed chemotherapy -Heme/onc consult placed as she missed her appointment today (6) Benign essential hypertension: Plan: -Stable -Holding atenolol, may need to reduce or hold completely on discharge (7) Hyperlipidemia: Plan: -Continue statin (8) Chronic reflux esophagitis: Plan: -Continue PPI Plan The patient was discussed with Dr. 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 In the ED vitals were stable. Labs were significant for a leukocytosis of 25, Hgb of 8.0 (down from 8.2 as of 11/14), MCV of 105, stable platelets at 166, alk phos of 123, initial high sen trop of 22. No imaging was obtained as the patient had no traumatic event and was neurologically intact. Prior to admission the patient was given 4 mg PO zofran. At the time of the exam the patient was lying in bed in no acute distress with her Daughter sitting bedside, history was obtained from both. The patient finished her last dose of chemo approximately 2 weeks ago and had a 24 hour Neulasta patch after. She has been fatigued over the past 24-48 hours but has otherwise been in her normal state of health. She was getting out of the shower this am when she had a sudden onset of feeling weak in the BL LE's and lightheaded. Her daughter witnessed the event this am and was able to lower the patient to the ground without any traumatic event. The patient and her daughter confirm that the patient did not fully lose consciousness, did not have any seizure-like activity, loss of bowel or bladder function, and quickly regained her composure after the event. She denies recent fever, chills, headache, changes in vision, hearing, taste, and smell, paresthesias or unilateral weakness, chest pain, SOB, productive cough, abd pain, nausea, vomiting, diarrhea, dysuria, hematuria, melena, LE swelling, skin breakdown/wounds, and recent trauma. The patient currently feels back to her baseline, her daughter is wondering if she should have a blood transfusion with her Hgb of 8.0 today, I explained that I will speak with Dr. Campos. The patient's daughter also performed a home Covid test on the patient today and it was negative. I spoke to the patient regarding code status, she wishes to to be a DNR/DNI and for her daughter to make decisions if she cannot make them herself. Please refer to Dr. Ascencio's attestation for any changes to the treatment plan Allergies Allergy/AdvReac Type Severity Reaction Status Date / Time adhesive tape Allergy Intermediate localized Verified 11/27/22 15:57 skin reddness/irritation latex Allergy Intermediate localized Verified 11/27/22 15:57 skin reddness/irritation aspirin Allergy Mild facial Verified 11/27/22 15:57 flushing ciprofloxacin Allergy Unknown Rash Verified 11/27/22 15:57 Home Medications Medication Instructions Recorded Confirmed Type cholecalciferol (vitamin D3) 25 1,000 units PO QPM 11/09/18 12/02/22 History mcg (1,000 unit) capsule paroxetine HCl 10 mg tablet (Paxil) 10 mg PO QDB #90 tabs 04/08/22 12/02/22 Rx atorvastatin 20 mg tablet 20 mg PO HS #90 tabs 04/29/22 12/02/22 Rx cyanocobalamin (vitamin B-12) 1,000 mcg PO DAILY 06/26/22 12/02/22 History 1,000 mcg tablet (Vitamin B-12) folic acid 400 mcg tablet 0.4 mg PO QPM 06/26/22 12/02/22 History loratadine 10 mg tablet (Claritin) 10 mg PO UD PRN Allergy Symptoms 06/26/22 12/02/22 History omeprazole 20 mg capsule,delayed 20 mg PO QAM #90 caps 09/18/22 12/02/22 Rx release Bifidobacterium infantis 4 mg 4 mg PO DAILY 11/07/22 12/02/22 History capsule (Align) acetaminophen 650 mg 650 mg PO Q8H PRN Pain 11/07/22 12/02/22 History tablet,extended release (Tylenol Arthritis Pain) fluticasone propionate 50 2 spray intranasal HS 11/07/22 12/02/22 History mcg/actuation nasal spray,suspension clopidogrel 75 mg tablet 75 mg PO QAM #30 tabs 11/08/22 12/02/22 Rx calcium carbonate 600 mg-vitamin 1 tab PO BID 11/27/22 12/02/22 History D3 10 mcg (400 unit) tablet (Calcium 600 + D(3)) [id number] 5 mg-zeaxanth 1 cap PO DAILY 11/27/22 12/02/22 History 1 mg-bilberry 7.5 mg-herbal capsule (Macular Health Formula) multivitamin (Daily Multi-Vitamin 1 tab PO DAILY 11/27/22 12/02/22 History tablet) apixaban 2.5 mg tablet 5 mg PO BID 12/02/22 12/02/22 History magnesium oxide See Rx Instructions PO .COMPLEX 12/02/22 12/02/22 History Past Med/Surg History Medical History Anxiety Chronic interstitial cystitis Depression GERD (gastroesophageal reflux disease) History of DVT of lower extremity left leg History of endometrial cancer Hx of basal cell carcinoma Hyperlipidemia Hypertension Nausea and vomiting after administration of anesthetic agent Osteopenia Seasonal allergies 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 still inplace. will bring card for current port DOS. Hx of basal cell carcinoma excision Hx of tonsillectomy Port-A-Cath in place (07/02/22) Insertion of Right Internal Jugular Access Port with Fluoroscopy(Right) - Martin Clark DO, FACS Family History Mother Hypertension Malignant neoplasm of urinary bladder Denies family history of Ovarian cancer Prostate cancer Myocardial infarction Breast cancer Colorectal cancer Social History Smoking Status: Former smoker Tobacco Type: Cigarettes Age Started Using Tobacco: 20; Age Quit Using Tobacco: 22; packs per day: 0.5; Cigarettes Per Day: 10 or less; Second Hand Exposure: No; Do You Dip or Chew Tobacco: No; Hx Alcohol Use: No Hx Substance Use: No Preferred Language: Kyrgyz Communication Ability: Effective Visual Impairment: No Limitations Hearing Ability: Normal Plating Operator Required: No Beliefs That Will Affect Care: None marital status: Current Living Situation: Other Current Living Situation Comment: lives w/ daughter Gardeina current occupational status: retired How many Children do You have: 2 Feels Safe at Home: Yes Childhood Exposure to Second-Hand Smoke: Yes Diet: regular caffeine: Yes during the past year weight has: remained stable Dental Care, Regularly: Yes Physical Activity Frequency: 3-4 Times per Week Seatbelt Use: always Sunscreen Use: Yes Assistive Devices: None Physical Exam Physical Exam: Physical Exam: General: In no acute distress, stated age, well-nourished, good hygiene HEENT: Normocephalic, atraumatic, no scleral icterus, pupils around round, symmetrical, and reactive to light, moist mucus membranes, trachea midline, no thyromegaly Chest/Pulm: Mediport located in the right upper chest is without signs of infection, No respiratory distress, symmetrical chest expansion, clear breath sounds throughout Cardiac: RRR, no murmurs noted Abdomen: Negative for ascites and bruising, normoactive bowel sounds, soft, non-tender to palpation throughout Musculoskeletal: Symmetrical and without signs of acute trauma, upper and lower extremities with full ROM, no atrophy, spasticity, or flaccidity Extremities: Radial, dorsalis pedis, and posterior tibial pulses are intact and symmetrical, no edema noted in the BL LE's Skin: Warm, dry, no rashes , lesions, or scars noted Neuro: Alert and oriented to person, place, month, year, and president, no focal defects, CN II-XII tested and intact, no tremors noted Psych: No acute distress, calm and cooperative during the exam Results & Data Results & Data Vital Signs (Past 12 Hours) Vital Signs Temp Pulse Pulse Resp BP BP Pulse Ox 11/27/22 14:19 98 11/27/22 14:19 66 18 130/71 98 11/27/22 11:53 36.5 C 66 18 113/71 100 O2 Del Method 11/27/22 14:19 Room Air 11/27/22 14:19 11/27/22 11:53 Room Air Laboratory Results Abnormal lab results 11/27/22 11/27/22 Range/Units 12:45 12:45 WBC 25.80 H (4.8-10.8) K/ul RBC 2.29 L (4.20-5.40) M/uL Hgb 8.0 L (12.0-16.0) g/dl Hct 24.2 L (37.0-47.0) % MCV 105.7 H (80.0-100.0) fL MCH 34.9 H (25.0-34.0) pg RDW Std Deviation 86.5 H (36.4-46.3) fL RDW Coeff of Elie 22.5 H (11.5-14.5) % Glucose 108 H (70-99(Fasting)) mg/dl Alkaline Phosphatase 123 H (34-104) U/L Troponin I High Sens 22.5 H (0-14) pg/ml ECG Additional Comments: Sinus rhythm with Premature atrial complexes Otherwise normal ECG When compared with ECG of 08-NOV-2022 07:02, T wave amplitude has decreased in Anterior leads Code Status & VTE Plan Code Status DNR/DNI VTE Prophylaxis Plan VTE Prophylaxis will be ordered: Yes Supervising Physician Co-Signing Physician Notes I personally saw and examined the patient. I verified all mcneal points and agree with Dax Galdamez PA-C with the following exceptions and/or additions: 72 year old female presents to the ER with weakness after getting out of the shower this morning. She denies any dizziness, chest pain or shortness of breath. O/E A&Ox3, HS RRR, no murmurs, Chest CTAB, Abdo SNT A/P Weakness and anemia - she denies any dizziness to myself and feels much improved after blood transfusion given therefore will reinstate her atenolol to see if she is orthostatic while in the hospital. Consideration to stop this however as not clear she needs it for her blood pressure. Better to restart in hospital and see how she does rather than restarting on discharge. Symptomatic anemia suspect due to chemotherapy. PG Care Time/CCT Total # of Minutes Spent Total Time Spent with Patient: Total time spent is greater than 50% in coordination of care (as documented) at patient's floor/unit and/or counseling patient: [place] [address] INT INP/OBS CARE 3/75MIN Patient Type Established Medical Decision Making High Complexity Diagnoses Near syncope R55 Leukocytosis D72.829 Anemia D64.9 Elevated troponin R77.8 Uterine cancer C55 Benign essential hypertension I10 Hyperlipidemia E78.5 Chronic reflux esophagitis K21.0
--- NOTE | 2022-11-27 15:06 | Electrocardiogram Report ---
Test Reason : Blood Pressure : / mmHG Vent. Rate : 060 BPM Atrial Rate : 060 BPM P-R Int : 150 ms QRS Dur : 084 ms QT Int : 430 ms P-R-T Axes : 044 012 002 degrees QTc Int : 430 ms Sinus rhythm with Premature atrial complexes Otherwise normal ECG When compared with ECG of 08-NOV-2022 07:02, No significant change Confirmed by Cedric Morgan ([id number]) on 11/27/2022 3:06:09 PM Referred By: REFERRED SELF Confirmed By:Cedric Morgan
[2022-11-27] MEDS ORDERED: LACTATED RINGER'S 500 ML IV ONE (15:44)
[2022-11-27] MEDS ORDERED: CLOPIDOGREL BISULFATE 75 MG TAB PO ONE (15:50)
[2022-11-27 15:54] LABS: Appearance Urine Clear (Clear); Bilirubin Urine Negative (Negative); Blood Urine Trace (Negative); Cast Urine Automated 0 /lpf (0-5); Color Urine Yellow; Epithelial Cell Urine Auto >30 /lpf (0-5); Glucose Urine UA Negative (Negative); Ketones Urine Negative (Negative); Leukocyte Esterase Urine 1+ (Negative); Nitrite Urine Negative (Negative); Protein Urine Negative (Negative); RBC Urine Automated 0-4 /hpf (0-4); Specific Gravity Urine 1.007 (1.000-1.030); Urobilinogen Urine Negative (Negative); pH Urine 6.5 (4.5-7.5)
[2022-11-27 16:17] LABS: Magnesium 1.5 mg/dl (1.7-2.4)
[2022-11-27] MEDS ORDERED: SODIUM CHLORIDE 0.9% 250 ML IV PRN (16:25)
--- NOTE | 2022-11-27 17:04 | Oncology Consultation ---
Date of Consultation November 27, 2022 Assessment & Plan (1) Leukocytosis: (2) Near syncope: (3) Endometrial cancer: (4) Anemia: Plan -Presented with syncope/near syncope of unclear etiology. Her hemoglobin is 8 most likely due to recent chemotherapy and she complains of fatigue. Given symptoms of anemia, recommend transfusing with 1 unit of PRBC. -Leukocytosis most likely due to Neulasta which was administered on 11/14/2022. Urinalysis however shows trace blood in urine and 1+ leukocyte esterase possibly indicating presence of a urinary tract infection.Consider possibly treating for UTI since she endorses mild changes in baseline urinary symptoms Thank you for this consult. Oncology will follow peripherally while she is in the hospital. Please feel free to call if you have any questions History of Present Illness Reason for Consultation: near syncopy, HgB of 8.0, need for transfusion? 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 She received cycle 6-day 8 of treatment with Neulasta support on 11/14/2022. She presented to the ER at [facility] earlier today after syncopal episode which she states occurred shortly after using the bathroom. She endorses fatigue but denies any other issues. On arrival to the ER, labs revealed leukocytosis with white cell count of 25.8, hemoglobin of 8 with hematocrit of 24.2 and platelet count of 166,000. Urinalysis revealed trace blood and 1+ leukocyte esterase in urine. Allergies Allergy/AdvReac Type Severity Reaction Status Date / Time adhesive tape Allergy Intermediate localized Verified 11/27/22 15:57 skin reddness/irritation latex Allergy Intermediate localized Verified 11/27/22 15:57 skin reddness/irritation aspirin Allergy Mild facial Verified 11/27/22 15:57 flushing ciprofloxacin Allergy Unknown Rash Verified 11/27/22 15:57 Home Medications Medication Instructions Recorded Confirmed Type cholecalciferol (vitamin D3) 25 1,000 units PO QPM 11/09/18 11/27/22 History mcg (1,000 unit) capsule magnesium oxide 1,200 mg PO QAM 01/28/22 11/27/22 History paroxetine HCl 10 mg tablet (Paxil) 10 mg PO QDB #90 tabs 04/08/22 11/27/22 Rx atorvastatin 20 mg tablet 20 mg PO HS #90 tabs 04/29/22 11/27/22 Rx cyanocobalamin (vitamin B-12) 1,000 mcg PO DAILY 06/26/22 11/27/22 History 1,000 mcg tablet (Vitamin B-12) folic acid 400 mcg tablet 0.4 mg PO QPM 06/26/22 11/27/22 History loratadine 10 mg tablet (Claritin) 10 mg PO UD PRN Allergy Symptoms 06/26/22 11/27/22 History atenolol 25 mg tablet 25 mg PO HS #90 tabs 08/13/22 11/27/22 Rx omeprazole 20 mg capsule,delayed 20 mg PO QAM #90 caps 09/18/22 11/27/22 Rx release Bifidobacterium infantis 4 mg 4 mg PO DAILY 11/07/22 11/27/22 History capsule (Align) acetaminophen 650 mg 650 mg PO Q8H PRN Pain 11/07/22 11/27/22 History tablet,extended release (Tylenol Arthritis Pain) fluticasone propionate 50 2 spray intranasal HS 11/07/22 11/27/22 History mcg/actuation nasal spray,suspension clopidogrel 75 mg tablet 75 mg PO QAM #30 tabs 11/08/22 11/27/22 Rx apixaban 2.5 mg tablet 2.5 mg PO BID 11/27/22 11/27/22 History calcium carbonate 600 mg-vitamin 1 tab PO BID 11/27/22 11/27/22 History D3 10 mcg (400 unit) tablet (Calcium 600 + D(3)) [id number] 5 mg-zeaxanth 1 cap PO DAILY 11/27/22 11/27/22 History 1 mg-bilberry 7.5 mg-herbal capsule (Macular Health Formula) multivitamin (Daily Multi-Vitamin 1 tab PO DAILY 11/27/22 11/27/22 History tablet) Patient History Medical History Anxiety Chronic interstitial cystitis Depression GERD (gastroesophageal reflux disease) History of DVT of lower extremity left leg History of endometrial cancer Hx of basal cell carcinoma Hyperlipidemia Hypertension Nausea and vomiting after administration of anesthetic agent Osteopenia Seasonal allergies 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 still inplace. will bring card for current port DOS. Hx of basal cell carcinoma excision Hx of tonsillectomy Port-A-Cath in place (07/02/22) Insertion of Right Internal Jugular Access Port with Fluoroscopy(Right) - D luisito Clark DO, FACS Family History Mother Hypertension Malignant neoplasm of urinary bladder Denies family history of Ovarian cancer Prostate cancer Myocardial infarction Breast cancer Colorectal cancer Social History Smoking Status: Never smoker Tobacco Type: Cigarettes Age Started Using Tobacco: 20; Age Quit Using Tobacco: 22; packs per day: 0.5; Cigarettes Per Day: 10 or less; Second Hand Exposure: No; Do You Dip or Chew Tobacco: No; Hx Alcohol Use: No Hx Substance Use: No Preferred Language: Tanzanian Communication Ability: Effective Visual Impairment: No Limitations Hearing Ability: Normal 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: No Beliefs That Will Affect Care: None marital status: Current Living Situation: Family Current Living Situation Comment: Lives at home with daughter irena current occupational status: retired How many Children do You have: 2 Feels Safe at Home: Yes Childhood Exposure to Second-Hand Smoke: Yes Diet: regular caffeine: Yes during the past year weight has: remained stable Dental Care, Regularly: Yes Physical Activity Frequency: 3-4 Times per Week Seatbelt Use: always Sunscreen Use: Yes Assistive Devices: None Results & Data Vital Signs (Past 12 Hours) Vital Signs Temp Pulse Pulse Resp BP BP Pulse Ox 11/27/22 16:26 61 18 148/81 H 99 07/27/23 15:21 66 11/27/22 14:19 98 11/27/22 14:19 66 18 130/71 98 11/27/22 11:53 36.5 C 66 18 113/71 100 O2 Del Method 11/27/22 16:26 11/27/22 15:21 11/27/22 14:19 Room Air 11/27/22 14:19 11/27/22 11:53 Room Air (1) Leukocytosis Leukocytosis type: unspecified Qualified Code(s): D72.829 - Elevated white blood cell count, unspecified (4) Anemia Anemia type: unspecified type Qualified Code(s): D64.9 - Anemia, unspecified
--- NOTE | 2022-11-27 17:09 | XRay Report ---
XR chest 1V portable HISTORY: high white blood cell count with cancer, monitor for infection COMPARISON: Chest 07/02/2022. FINDINGS: No pneumothorax. No pleural effusions. The cardiac silhouette remains mildly enlarged. Smal l left basilar linear densities favor subsegmental atelectasis or scarring. This remains unchanged. O therwise, the lungs are clear. A right jugular Port-A-Cath terminates at the SVC. IMPRESSION: No significant change compared to the prior study. No acute process. ACT 112: Negative or not required by law. Electronically signed by: Romie Floyd M.D. 11/27/2022 5:08 PM
[2022-11-27 17:37] LABS: Bacteria Urine Automated 1+ (Negative)
[2022-11-27] MEDS ORDERED: ACETAMINOPHEN 325 MG TAB PO PRN (17:41)
[2022-11-27] MEDS ORDERED: ATENOLOL 25 MG TABLET PO SCH (21:00)
[2022-11-27] MEDS: FOLIC ACID 400 MCG TAB PO SCH (21:31)
[2022-11-27] MEDS: ATORVASTATIN 20 MG TAB PO SCH (21:31)
[2022-11-27] MEDS: APIXABAN 2.5 MG TAB PO SCH (21:31)
[2022-11-27] MEDS: MAGNESIUM SULFATE / D5W 1 GM/100 ML BAG IV SCH (23:01)
[2022-11-28] MEDS ORDERED: APIXABAN 2.5 MG TAB PO SCH
[2022-11-28] MEDS: MAGNESIUM SULFATE / D5W 1 GM/100 ML BAG IV SCH ×2 (01:22→04:07)
[2022-11-28] MEDS ORDERED: HEPARIN 100 UNIT/ML 5ML FLUSH ONE (08:32)
[2022-11-28] MEDS: APIXABAN 2.5 MG TAB PO SCH ×2 (08:38→20:19)
[2022-11-28] MEDS: PANTOprazole 40 MG TAB PO SCH (08:38)
[2022-11-28] MEDS: MAGNESIUM OXIDE 400 MG TAB PO SCH (08:38)
[2022-11-28] MEDS: CYANOCOBALAMIN (B-12) 500 MCG TABLET PO SCH (08:38)
[2022-11-28] MEDS ORDERED: NON-FORMULARY MEDICATION (Bifidobacterium Infantis [Align] 4 mg Capsule) PO SCH (09:00)
[2022-11-28 09:54] LABS: Albumin Globulin Ratio 1.3 (0.9-2); Albumin Level 3.5 gm/dl (3.4-5.0); BUN Creatinine Ratio 10.1 (10-20); Bilirubin,Total 0.4 mg/dl (0.2-1.0); Calcium 8.7 mg/dl (8.6-10.3); Creatinine Clr Calc Pharmacy 46.5 ml/min; Est GFR (African American) 58.7 ml/min; Est GFR (Non-African American) 50.7 ml/min; Globulin 2.6 gm/dl (2.5-4.0); Potassium 3.5 mmol/L (3.5-5.1); Total Protein 6.1 gm/dl (6.0-8.3)
[2022-11-28 10:26] LABS: Hematocrit (blood only) 27.1 % (37.0-47.0); Hemoglobin 8.7 g/dl (12.0-16.0); Mean Corpuscular Hemoglobin 32.3 pg (25.0-34.0); Mean Corpuscular Hgb Conc 32.1 g/dL (32.0-36.0); Mean Corpuscular Volume 100.7 fL (80.0-100.0); Mean Platelet Volume 10.4 fL (9.4-12.4); Nucleated RBC # (auto) 0.06 K/uL (0-0.12); Nucleated RBC % (auto) 0.3 %; Platelet Count 184 K/uL (130-400); RDW Coefficient of Variation 25.5 % (11.5-14.5); RDW Standard Deviation 91.6 fL (36.4-46.3); Red Blood Count 2.69 M/uL (4.20-5.40); White Blood Count 17.53 K/ul (4.8-10.8)
[2022-11-28 10:27] LABS: Anisocytosis Present; Basophils # (auto) 0.07 K/uL (0-0.2); Basophils % (auto) 0.4 %; Eosinophils # (auto) 0.06 K/uL (0-0.50); Eosinophils % (auto) 0.3 %; Immature Granulocytes # (auto) 0.59 K/uL (0.01-0.20); Immature Granulocytes % (auto) 3.4 %; Lymphocytes # (auto) 1.07 K/uL (1.2-3.4); Lymphocytes % (auto) 6.1 %; Monocytes % (auto) 6.3 %; Neutrophils # (auto) 14.64 K/uL (1.40-6.50); Neutrophils % (auto) 83.5 %; Tear Drop Cells 1+
[2022-11-28] MEDS: AMPICILLIN/SULBACTAM SOD 1,500 MG in 0.9 % SODIUM CHLORIDE 100 ML IV SCH ×3 (10:42→20:24)
[2022-11-28] MEDS: CLOPIDOGREL BISULFATE 75 MG TAB PO SCH (12:42)
[2022-11-28] MEDS: PARoxetine HCL 10 MG TAB PO SCH (12:42)
--- NOTE | 2022-11-28 14:59 | Hospitalist Progress Note ---
Date of Service November 28, 2022 Assessment & Plan (1) Near syncope: Plan: Resolved. Probably orthostatic in nature. Atenolol discontinued. Monitor heart rate and blood pressure when upright. Telemetry (2) Leukocytosis: Plan: Multifactorial. This could be stress demargination or reactive after recent chemotherapy or possibly due to active infection. We will follow. (3) Anemia: Plan: Chronic. No evidence of GI bleeding. Serial labs (4) Elevated troponin: Plan: Mild. No evidence of acute coronary syndrome. Denies chest pain. Probably demand ischemia (5) Uterine cancer: Plan: Treated by Dr. Campos. She has completed chemotherapy . Heme/onc consult placed as she missed her appointment on the day of admission (6) Benign essential hypertension: Plan: Now stable. Atenolol has been discontinued. Monitor heart rate and blood pressure (7) Hyperlipidemia: Plan: Stable. Continue statin (8) Chronic reflux esophagitis: Plan: Stable. Continue PPI Plan Hopefully home tomorrow, November 29 Admission and Anticipated Discharge Date Admission Date: November 27, 2022 Subjective Alert and oriented. No distress. The patient and her daughter suspect the syncopal episode was related to orthostasis from a hot shower accompanied by her recent chemotherapy. This is probably true although underlying infection needs to be ruled out. There is some suspicion of urinary tract infection and she is now on Unasyn. Final culture results are pending. Atenolol has been discontinued. She may simply not need it anymore. Blood pressure and heart rate are stable. Hopefully she can go home tomorrow, November 29 Review of Systems Review of Systems: Constitutional-no fever or chills ENT-no blurred vision, no double vision, no epistaxis, no sore throat Respiratory-no cough, no wheezing, no shortness of breath Cardiac-no palpitations, no chest pain, no syncope GI-no nausea, vomiting, diarrhea, melena, hematochezia -no urinary retention, no urinary incontinence, no dysuria, no hematuria Musculoskeletal-no joint pain, no muscle tenderness Skin-no bruising, no rashes, no pruritus Neuro-no isolated weakness, no paresthesia, no weakness Psych-no depression, no anxiety Physical Exam Physical Exam: General-alert and oriented x3, no fevers, no chills HEENT-head atraumatic and normocephalic, pupils equal and reactive to light, extraocular muscles intact Neck-no lymphadenopathy or thyromegaly, trachea midline Chest-clear to auscultation percussion. No rales wheezing or rhonchi Cardiac-regular rate and rhythm, normal S1 and S2 Abdomen-normal bowel sounds, nontender, no hepatosplenomegaly Extremities-no cyanosis, clubbing, or edema Neuro-cranial nerves II through XII intact, motor and sensory function within normal limits, strength symmetrical , no focal deficits Psych-normal affect, normal mood Results & Data Results & Data Vital Signs (Past 12 Hours) Vital Signs Temp Pulse Pulse Resp BP Pulse Ox O2 Del Method 11/28/22 08:00 61 11/28/22 12:14 36.6 C 60 18 124/68 98 Room Air 11/28/22 07:38 37.3 C 68 18 131/77 97 Room Air Laboratory Results 11/28/22 08:28 11/28/22 08:28 PG Care Time/CCT Total # of Minutes Spent Total Time Spent with Patient: Total time spent is greater than 50% in coordination of care (as documented) at patient's floor/unit and/or counseling patient: Coding Level of Care Code 15329 SUB INP/OBS CARE 3/50MIN Diagnoses Near syncope R55 Leukocytosis D72.829 Anemia D64.9 Elevated troponin R77.8 Uterine cancer C55 Benign essential hypertension I10 Hyperlipidemia E78.5 Chronic reflux esophagitis K21.0
[2022-11-28] MEDS ORDERED: HEPARIN 100 UNIT/ML 5ML FLUSH FLUSH PRN (17:45)
[2022-11-28] MEDS: FLUTICASONE PROPIONATE NA SPR 16 GM BTL SCH (18:03)
[2022-11-28] MEDS: FOLIC ACID 400 MCG TAB PO SCH (20:19)
[2022-11-28] MEDS: ATORVASTATIN 20 MG TAB PO SCH (20:19)
[2022-11-28] MEDS ORDERED: ZOLPIDEM TARTRATE 5 MG TAB PO SCH (21:00)
[2022-11-29] MEDS: AMPICILLIN/SULBACTAM SOD 1,500 MG in 0.9 % SODIUM CHLORIDE 100 ML IV SCH ×2 (02:10→07:48)
[2022-11-29 07:03] LABS: Basophils # (auto) 0.06 K/uL (0-0.2); Basophils % (auto) 0.4 %; Eosinophils # (auto) 0.08 K/uL (0-0.50); Eosinophils % (auto) 0.5 %; Hematocrit (blood only) 25.7 % (37.0-47.0); Hemoglobin 8.2 g/dl (12.0-16.0); Immature Granulocytes # (auto) 0.43 K/uL (0.01-0.20); Immature Granulocytes % (auto) 2.8 %; Lymphocytes # (auto) 1.17 K/uL (1.2-3.4); Lymphocytes % (auto) 7.7 %; Mean Corpuscular Hgb Conc 31.9 g/dL (32.0-36.0); Mean Corpuscular Volume 100.4 fL (80.0-100.0); Mean Platelet Volume 9.7 fL (9.4-12.4); Monocytes # (auto) 1.08 K/uL (0.11-0.59); Monocytes % (auto) 7.1 %; Neutrophils # (auto) 12.29 K/uL (1.40-6.50); Neutrophils % (auto) 81.5 %; Nucleated RBC # (auto) 0.04 K/uL (0-0.12); Nucleated RBC % (auto) 0.3 %; Platelet Count 225 K/uL (130-400); RDW Standard Deviation 88.9 fL (36.4-46.3); Red Blood Count 2.56 M/uL (4.20-5.40); White Blood Count 15.11 K/ul (4.8-10.8)
[2022-11-29 07:23] LABS: Albumin Globulin Ratio 1.3 (0.9-2); Albumin Level 3.3 gm/dl (3.4-5.0); BUN Creatinine Ratio 11.6 (10-20); Bilirubin,Total 0.3 mg/dl (0.2-1.0); Calcium 8.4 mg/dl (8.6-10.3); Creatinine Clr Calc Pharmacy 53.4 ml/min; Est GFR (African American) 69.4 ml/min; Est GFR (Non-African American) 59.8 ml/min; Globulin 2.5 gm/dl (2.5-4.0); Magnesium 1.6 mg/dl (1.7-2.4); Potassium 3.7 mmol/L (3.5-5.1); Total Protein 5.8 gm/dl (6.0-8.3)
[2022-11-29 07:40] LABS: Anisocytosis Present; Dohle Bodies 1+; Polychromasia 1+; Tear Drop Cells 1+
[2022-11-29] MEDS: CYANOCOBALAMIN (B-12) 500 MCG TABLET PO SCH (07:48)
[2022-11-29] MEDS: APIXABAN 2.5 MG TAB PO SCH (07:48)
[2022-11-29] MEDS: PANTOprazole 40 MG TAB PO SCH (07:49)
[2022-11-29] MEDS: FLUTICASONE PROPIONATE NA SPR 16 GM BTL SCH (07:49)
[2022-11-29] MEDS: MAGNESIUM OXIDE 400 MG TAB PO SCH (07:49)
[2022-11-29] MEDS: CLOPIDOGREL BISULFATE 75 MG TAB PO SCH (11:12)
[2022-11-29] MEDS: PARoxetine HCL 10 MG TAB PO SCH (11:12)
--- NOTE | 2022-11-29 12:06 | Discharge Summary ---
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 In the ED vitals were stable. Labs were significant for a leukocytosis of 25, Hgb of 8.0 (down from 8.2 as of 11/14), MCV of 105, stable platelets at 166, alk phos of 123, initial high sen trop of 22. No imaging was obtained as the patient had no traumatic event and was neurologically intact. Prior to admission the patient was given 4 mg PO zofran. At the time of the exam the patient was lying in bed in no acute distress with her Daughter sitting bedside, history was obtained from both. The patient finished her last dose of chemo approximately 2 weeks ago and had a 24 hour Neulasta patch after. She has been fatigued over the past 24-48 hours but has otherwise been in her normal state of health. She was getting out of the shower this am when she had a sudden onset of feeling weak in the BL LE's and lightheaded. Her daughter witnessed the event this am and was able to lower the patient to the ground without any traumatic event. The patient and her daughter confirm that the patient did not fully lose consciousness, did not have any seizure-like activity, loss of bowel or bladder function, and quickly regained her composure after the event. She denies recent fever, chills, headache, changes in vision, hearing, taste, and smell, paresthesias or unilateral weakness, chest pain, SOB, productive cough, abd pain, nausea, vomiting, diarrhea, dysuria, hematuria, melena, LE swelling, skin breakdown/wounds, and recent trauma. The patient currently feels back to her baseline, her daughter is wondering if she should have a blood transfusion with her Hgb of 8.0 today, I explained that I will speak with Dr. Campos. The patient's daughter also perfo rmed a home Covid test on the patient today and it was negative. I spoke to the patient regarding code status, she wishes to to be a DNR/DNI and for her daughter to make decisions if she cannot make them herself. Please refer to Dr. Ascencio's attestation for any changes to the treatment plan Principal Diagnosis Near syncope due to orthostatic hypotension Discharge Exam General-alert and oriented x3, no fevers, no chills HEENT-head atraumatic and normocephalic, pupils equal and reactive to light, extraocular muscles intact Neck-no lymphadenopathy or thyromegaly, trachea midline Chest-clear to auscultation percussion. No rales wheezing or rhonchi Cardiac-regular rate and rhythm, normal S1 and S2 Abdomen-normal bowel sounds, nontender, no hepatosplenomegaly Extremities-no cyanosis, clubbing, or edema Neuro-cranial nerves II through XII intact, motor and sensory function within normal limits, strength symmetrical , no focal deficits Psych-normal affect, normal mood Discharge Data Allergies Allergy/AdvReac Type Severity Reaction Status Date / Time adhesive tape Allergy Intermediate localized Verified 11/27/22 15:57 skin reddness/irritation latex Allergy Intermediate localized Verified 11/27/22 15:57 skin reddness/irritation aspirin Allergy Mild facial Verified 11/27/22 15:57 flushing ciprofloxacin Allergy Unknown Rash Verified 11/27/22 15:57 Consultations 11/27/22 14:47 ED Decision to Admit Stat 11/27/22 15:25 Consult Oncology Routine Hospital Course (1) Near syncope: Resolved. Probably orthostatic in nature. Atenolol discontinued. Heart rate and blood pressure remain stable. Telemetry (2) Leukocytosis: Multifactorial. This could be stress demargination or reactive after recent chemotherapy. UTI has been ruled out. (3) Anemia: Chronic. No evidence of GI bleeding. Serial labs (4) Elevated troponin: Mild. No evidence of acute coronary syndrome. Denies chest pain. Probably demand ischemia (5) Uterine cancer: Treated by Dr. Campos. She has completed chemotherapy . Heme/onc consult placed as she missed her appointment on the day of admission (6) Benign essential hypertension: Now stable. Atenolol has been discontinued. Heart rate and blood pressure remained stable off atenolol (7) Hyperlipidemia: Stable. Continue statin (8) Chronic reflux esophagitis: Stable. Continue PPI Plan Home today,November 29 Total Time Total Time Spent Total Time Spent (In Minutes): 45 minutes Discharge Plan Discharge Items Patient Disposition: Home - Self-Care Reason For Visit: NEAR SYNCOPY Discharge Diagnosis: Near syncope, orthostatic hypotension Activity: Resume your previous activity Non-emergency contact: Primary Care Provider Call non-emergency contact if: you have any medication questions and your symptoms worsen Follow-up/Referrals: Kasey Mendez MD [Primary Care Provider] - Diet: Regular and Heart Healthy Addtl Attending Provider Instructions: Stop atenolol Pending Studies at Discharge: No Stand-Alone Forms: My [facility] [employer], Smoking Cessation Medications and DC Order Prescriptions: Continued cholecalciferol (vitamin D3) 1,000 unit capsule 1,000 units PO QPM paroxetine HCl [Paxil] 10 mg tablet 10 mg PO QDB Qty: 90 3RF Rx Instructions: Takes daily at 12:30 Pm atorvastatin 20 mg tablet 20 mg PO HS Qty: 90 3RF omeprazole 20 mg capsule,delayed release(DR/EC) 20 mg PO QAM Qty: 90 3RF magnesium oxide 400 mg magnesium capsule 1,200 mg PO QAM Rx Instructions: take 3 tablets in morning acetaminophen [Tylenol Arthritis Pain] 650 mg Tablet Extended Release 650 mg PO Q8H PRN (Reason: Pain) Align 4 mg Capsule 4 mg PO DAILY fluticasone propionate 50 mcg/actuation spray,suspension 2 spray INTNAS HS clopidogrel 75 mg Tablet 75 mg PO QAM Qty: 30 4RF calcium carbonate-vitamin D3 [Calcium 600 + D(3)] 600 mg-10 mcg (400 unit) Tablet 1 tab PO BID Macular Health Formula 5-1-7.5 mg Capsule 1 cap PO DAILY apixaban 2.5 mg Tablet 2.5 mg PO BID Rx Instructions: takes at noon and midnight multivitamin [Daily Multi-Vitamin] Tablet 1 tab PO DAILY cyanocobalamin (vitamin B-12) [Vitamin B-12] 1,000 mcg Tablet 1,000 mcg PO DAILY folic acid 400 mcg Tablet 0.4 mg PO QPM loratadine [Claritin] 10 mg Tablet 10 mg PO UD PRN (Reason: Allergy Symptoms) Discontinued atenolol 25 mg tablet 25 mg PO HS Qty: 90 3RF Discharge Orders: Discharge Order (Routine); Ordered 11/29/22 Ordered By: Azam Almanzar Admission Data Admit Date/Time: 11/27/22 15:02 Attending Provider: Azam Almanzar Admit Provider: Eduardo Ascencio Primary Care Provider: Kasey Mendez Other Providers: Eduardo Ascencio ; Ravi Liu Coding Level of Care Code 29531 INP/OBS DISCH >30 MIN Diagnoses Near syncope R55 Leukocytosis D72.829 Anemia D64.9 Elevated troponin R77.8 Uterine cancer C55 Benign essential hypertension I10 Hyperlipidemia E78.5 Chronic reflux esophagitis K21.0
== END 2022-11-29 13:36 | disposition home or self-care (01) | DRG 312 ==
LOC: ED 11:43 → EDINP 15:02 → SUATTDRO 15:02 → 2W 21:20

== ENCOUNTER 2023-02-13 10:51 | Inpatient (IN) ==
[2023-02-13] MEDS ORDERED: ACETAMINOPHEN 325 MG TAB PO PRN (12:03)
[2023-02-13 13:35] LABS: Basophils # (auto) 0.02 K/uL (0.00-0.20); Basophils % (auto) 0.2 %; Hematocrit (blood only) 34.7 % (37.0-47.0); Hemoglobin 11.3 g/dl (12.0-16.0); Immature Granulocytes # (auto) 0.07 K/uL (0.01-0.20); Immature Granulocytes % (auto) 0.6 %; Lymphocytes # (auto) 0.48 K/uL (1.20-3.40); Lymphocytes % (auto) 4.4 %; Mean Corpuscular Hemoglobin 30.3 pg (25.0-34.0); Mean Corpuscular Hgb Conc 32.6 g/dL (32.0-36.0); Mean Platelet Volume 9.5 fL (9.4-12.4); Monocytes # (auto) 0.64 K/uL (0.11-0.59); Monocytes % (auto) 5.8 %; Neutrophils # (auto) 9.74 K/uL (1.40-6.50); Platelet Count 278 K/uL (130-400); RDW Coefficient of Variation 15.5 % (11.5-14.5); RDW Standard Deviation 52.3 fL (36.4-46.3); Red Blood Count 3.73 M/uL (4.20-5.40); White Blood Count 10.95 K/ul (4.8-10.8)
[2023-02-13] MEDS ORDERED: LORATADINE 10 MG TAB PO PRN (13:49)
[2023-02-13] MEDS ORDERED: PROCHLORPERAZINE MALEATE 10 MG TAB PO PRN (13:49)
--- NOTE | 2023-02-13 13:51 | History & Physical Report ---
Date of Service February 13, 2023 Assessment & Plan (1) Exertional shortness of breath: Plan: Summary: Presents with weakness and shortness of breath history of metastatic ovarian cancer with bilateral pleural effusions and peritoneal carcinomatosis. Was due to start Keytruda 02/13, was too fatigued and appeared volume depleted and was referred for direct admission from [facility]. She is clinically volume contracted with KISHA on admission. Initial tachycardia sinus likely reactive to volume depletion, fluids and supplemental fluids ordered electrolyte repeat ordered. Patient does have fluid wave and abdominal distention, abdominal ultrasound is only with trace ascites. Chest x-ray does show bilateral pleural effusions. Abdominal ultrasound not currently amenable to paracentesis. Eliquis held for pulmonology evaluation/possible left-sided Pleurx placement. Shortness of breath - hx malignant pleural effusion and abdominal ascites Right Pleurx is in place site C/D/I. Last drained for 550 cc of fluid 02/04/2023 Is pending left-sided Pleurx placement with pulmonary as an outpatient Lungs are diminished in the bases. Patient is direct admitted from [facility]. X- ray shows bilateral pleural effusions. Pulmonology consulted She is not hypoxic at time of admission. Does appear to have some restricted breathing due to pressure from her abdomen, limited ascites not currently amenable to tap on ultrasound Eliquis temporarily held, last dose 02/02 (2) KISHA (acute kidney injury): Plan: Creatinine acutely elevated 3.2. Patient with poor oral intake and nausea. Clinically volume contracted 1 L NSS ordered for hypovolemia and tachycardia, supplemental fluids ordered as patient has poor p.o. intake and continued nausea Trend BMP daily Patient is with sinus tachycardia initially up to the 140s, improved and then subsequently had a brief run of atrial flutter on monitor. Pt is receviing fluids as noted, +2g mag to optimize level of 2.0 pending. No hypotension. - Metoprolol 5mg IV PRN up to 3 doses for afib/flutter with RVR, if sinus --> treat as reactive to volume depletion and continue fluids. 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 Patient was scheduled to start Keytruda 02/13/2023 but is not strong enough to do so and has been referred for direct admission. She continues with goals of care that are progressively treatment oriented, but is willing to meet with palliative care to help with the management of her chronic pain Allopurinol cont for high uric acid level/tumor lysis ppx (6) Ascites: Plan: History of malignant ascites with peritoneal carcinomatosis Typically managed with paracentesis with IR at [facility] Patient is with a distended abdomen and +fluid wave, no warmth/focal tenderness/rebound suggestive of SBP She continues to have back pain, nausea, and restricted breathing which is consistent with fluid accumulation in her abdomen and normally resolves following paracentesis On ultrasound only trace ascites is noted, paracentesis deferred. Suspect shortness of breathIs predominantly due to to left and right pleural effusions with dependent consolidation. Pulmonology following (7) History of DVT in adulthood: Plan: In the setting of cancer On Eliquis, held pending Pleurx evaluation (8) History of CVA (cerebrovascular accident): Plan: Eliquis held as noted. Plavix on hold per pt. Admission and Anticipated Discharge Date Admission Date: February 13, 2023 History of Present Illness Primary Care Provider: Kasey Mendez MD Sheron is seen at the bedside. She is [facility] from [facility]. Per discussion with patient's oncologist Dr. Almanza prior to direct admission she arrived at [facility] and was scheduled to start Keytruda today for aggressive uterine malignancy. She had had a renal ultrasound performed prior to this, on arrival to [facility] she appeared extremely fatigued, weak, and more washed out than normal. Patient endorsed poor intake for 2 days, lightheadedness, and general malaise. She was found to be mildly tachycardic. She had significant abdominal ascites and reported worsened back pain and shortness of breath along with this. She normally has 4, ascites treated with therapeutic paracentesis with Antwon but this was not able to be performed this week. She has a right-sided Pleurx catheter, is pending placement with a left Pleurx catheter with . She has normal oxygen saturation at time of assessment, but is much more fatigued than normal. She is seen at the bedside. She reports that she has not been eating and drinking well, and has been peeing less than normal. She feels generally extremely fatigued. She is short of breath, this improves slightly with rest but notes she feels a lot of pressure from her abdomen. Normally her nausea/shortness of breath improved nearly completely after paracentesis. She denies fever, chills, sweats. No cough. Her abdomen feels tense and she has back pain, but does not have any new or unusual abdominal pain. She is seen with a friend present. She reports her goals are to improve her strength to be able to tolerate Keytruda. She notes she has been through 2 rounds of chemotherapy in the past and is aware that her cancer is aggressive and that further treatment is likely be challenging on her body, however her current goals are to get strong enough to tolerate chemotherapy with the hope of extending her life. She has started reaching out to providers to discuss with palliative care to help with her multidisciplinary care, but her current goals of care are to pursue treatment rather than palliation. She is aware that palliative care and hospice are elevated but different. Denies tobacco/alcohol/substance use. Full code Allergies Allergy/AdvReac Type Severity Reaction Status Date / Time adhesive tape Allergy Intermediate localized Verified 02/03/23 11:03 skin reddness/irritation latex Allergy Intermediate localized Verified 02/03/23 11:03 skin reddness/irritation aspirin Allergy Mild facial Verified 02/03/23 11:03 flushing ciprofloxacin Allergy Unknown Rash Verified 02/03/23 11:03 Home Medications Medication Instructions Recorded Confirmed Type cholecalciferol (vitamin D3) 25 1,000 units PO QPM 11/09/18 02/13/23 History mcg (1,000 unit) capsule paroxetine HCl 10 mg tablet (Paxil) 10 mg PO QDB #90 tabs 04/08/22 02/13/23 Rx atorvastatin 20 mg tablet 20 mg PO HS #90 tabs 04/29/22 02/13/23 Rx cyanocobalamin (vitamin B-12) 1,000 mcg PO DAILY 06/26/22 02/13/23 History 1,000 mcg tablet (Vitamin B-12) folic acid 400 mcg tablet 0.4 mg PO QPM 06/26/22 02/13/23 History loratadine 10 mg tablet (Claritin) 10 mg PO UD PRN Allergy Symptoms 06/26/22 02/13/23 History omeprazole 20 mg capsule,delayed 20 mg PO QAM #90 caps 09/18/22 02/13/23 Rx release Bifidobacterium infantis 4 mg 4 mg PO DAILY 11/07/22 02/13/23 History capsule (Align) acetaminophen 650 mg 650 mg PO Q8H PRN Pain 11/07/22 02/13/23 History tablet,extended release (Tylenol Arthritis Pain) fluticasone propionate 50 2 spray intranasal HS 11/07/22 02/13/23 History mcg/actuation nasal spray,suspension calcium carbonate 600 mg-vitamin 1 tab PO BID 11/27/22 02/13/23 History D3 10 mcg (400 unit) tablet (Calcium 600 + D(3)) [id number] 5 mg-zeaxanth 1 cap PO DAILY 11/27/22 02/13/23 History 1 mg-bilberry 7.5 mg-herbal capsule (Macular Health Formula) multivitamin (Daily Multi-Vitamin 1 tab PO DAILY 11/27/22 02/13/23 History tablet) magnesium oxide See Rx Instructions PO .COMPLEX 12/02/22 02/13/23 History apixaban 5 mg tablet (Eliquis) 5 mg PO BID #180 tabs 12/04/22 02/13/23 Rx clopidogrel 75 mg tablet 75 mg PO QAM #90 tabs 12/04/22 02/13/23 Rx lorazepam 0.5 mg tablet (Ativan) 0.5 mg PO BID PRN anxiety #60 tabs 12/04/22 02/03/23 Rx allopurinol 300 mg tablet 300 mg PO DAILY 02/13/23 02/13/23 History prochlorperazine maleate 10 mg 10 mg PO Q6 PRN Nausea 02/13/23 02/13/23 History tablet Past Med/Surg History Medical History Anemia Anxiety Benign essential hypertension Chronic interstitial cystitis Chronic reflux esophagitis Depression Endometrial cancer GERD (gastroesophageal reflux disease) History of DVT of lower extremity History of endometrial cancer Hx of basal cell carcinoma Hyperlipidemia Hyperlipidemia Hypertension Nausea and vomiting after administration of anesthetic agent Osteopenia Seasonal allergies 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 Uterine cancer Surgical History H/O laparoscopy H/O: hysterectomy History of colonoscopy History of cystoscopy History of vascular access device Hx of basal cell carcinoma excision Hx of tonsillectomy Port-A-Cath in place (07/02/22) Family History Mother Hypertension Malignant neoplasm of urinary bladder Denies family history of Ovarian cancer Prostate cancer Myocardial infarction Breast cancer Colorectal cancer Social History (Updated 02/03/23 @ 11:01 by Rosette Armenta RN) Smoking Status: Never smoker Tobacco Type: Cigarettes Age Started Using Tobacco: 20; Age Quit Using Tobacco: 22; packs per day: 0.5; Cigarettes Per Day: 10 or less; Second Hand Exposure: No; Do You Dip or Chew Tobacco: No; Hx Alcohol Use: No Hx Substance Use: No Preferred Language: Estonian Communication Ability: Effective Visual Impairment: No Limitations Hearing Ability: Normal Oral Hygienist Required: No Beliefs That Will Affect Care: None marital status: Current Living Situation: Family Current Living Situation Comment: Lives with daughter Gardenia current occupational status: retired How many Children do You have: 2 Other Information That Helps Us Care for You: No Feels Safe at Home: Yes Safety Concerns: Feels Safe At This Time Childhood Exposure to Second-Hand Smoke: Yes Diet: regular caffeine: Yes during the past year weight has: remained stable Dental Care, Regularly: Yes Physical Activity Frequency: 3-4 Times per Week Seatbelt Use: always Sunscreen Use: Yes Assistive Devices: Glasses Physical Exam Physical Exam: General: A&Ox3. NAD. Cooperative. HEENT: Atraumatic, normocephalic. Pulm: R pleurx in place. Lung sdiminished bilaterally in the bases. No wheezing. Symmetrical chest rise. No increased work of breathing. No respiratory distress. Cardiac: Regular, tachycardic, -mrg. Radial pulses intact and symmetrical. Abdominal: Distended, +fluid wave. No focal tenderness. No warmth/erythema Ext: Warm, dry Results & Data Results & Data Vital Signs (Past 12 Hours) Vital Signs Temp Pulse Resp BP Pulse Ox O2 Del Method 02/13/23 12:04 36.5 C 115 H 19 123/85 96 Room Air 02/13/23 12:24 36.5 C 115 H 19 123/85 96 Room Air Code Status & VTE Plan VTE Prophylaxis Plan VTE Prophylaxis will be ordered: Yes PG Care Time/CCT Total # of Minutes Spent Total Time Spent with Patient: Total time spent is greater than 50% in coordination of care (as documented) at patient's floor/unit and/or counseling patient: Coding Level of Care Code 70635 INT INP/OBS CARE 3/75MIN Diagnoses Exertional shortness of breath R06.02 KISHA (acute kidney injury) N17.9 Malignant pleural effusion J91.0 Port-A-Cath in place Z95.828 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
--- NOTE | 2023-02-13 14:19 | XRay Report ---
TWO VIEW CHEST CLINICAL HISTORY: Dyspnea. FINDINGS: AP upright and lateral chest radiographs are compared to study dated 02/02/2023 and correlat ed with chest CT dated 09/23/2022. A right internal jugular central venous infusion port is unchanged in position. The heart is enlarged noting atherosclerotic calcification of the thoracic aorta. The pu lmonary curvature is noncongested. A pleural drain is again seen in the right lung base. There are le ft larger than right pleural effusions with dependent consolidation. There is no pneumothorax. The sk eletal structures are osteopenic. The bony thorax appears intact. IMPRESSION: 1. Cardiomegaly without radiographic evidence of congestive failure. 2. A pleural drain is again seen in the right lung base. 3. Left larger than right pleural effusions with dependent consolidation. The left pleural effusion h as increased in size from 02/02/2023. ACT 112: Negative or not required by law. Electronically signed by: French Bower M.D. 02/13/2023 2:18 PM
--- NOTE | 2023-02-13 15:52 | Ultrasound Report ---
US abdomen ltd ascites HISTORY: 72 years-old Female ?ascites follow-up study in a patient with ascites COMPARISON: 02/09/2023 TECHNIQUE: Multiple real-time sonographic images of the abdomen were obtained assessing grayscale joie earance FINDINGS: Trace upper abdominal ascites. Heterogeneous appearance of the liver. IMPRESSION: Trace abdominal ascites. ACT 112: Negative or not required by law. The above report was generated using voice recognition software. It may contain grammatical, syntax o r spelling errors. Electronically signed by: Bud Franklin M.D. 02/13/2023 3:51 PM
[2023-02-13] MEDS ORDERED: METOPROLOL TARTRATE 1 MG/ML VIAL IV STA (17:15)
[2023-02-13] MEDS ORDERED: METOPROLOL TARTRATE 1 MG/ML VIAL IV PRN (17:17)
[2023-02-13] MEDS ORDERED: METOPROLOL TARTRATE 1 MG/ML VIAL IV ONE (17:21)
[2023-02-13] MEDS: MAGNESIUM SULFATE / D5W 1 GM/100 ML BAG IV SCH ×2 (17:40→20:15)
[2023-02-13] MEDS ORDERED: PLASMA-LYTE A 1,000 ML IV ONE (17:42)
[2023-02-13 18:03] LABS: Albumin Globulin Ratio 0.8 (0.9-2); Albumin Level 2.7 gm/dl (3.4-5.0); Bilirubin,Total 0.4 mg/dl (0.2-1.0); Calcium 8.4 mg/dl (8.6-10.3); Creatinine Clr Calc Pharmacy 14.9 ml/min; Est GFR (African American) 15.4 ml/min; Est GFR (Non-African American) 13.3 ml/min; Globulin 3.4 gm/dl (2.5-4.0); Potassium 4.1 mmol/L (3.5-5.1); Total Protein 6.1 gm/dl (6.0-8.3)
--- NOTE | 2023-02-13 18:20 | Pulmonary Consultation ---
Date of Consultation February 13, 2023 Assessment & Plan (1) Exertional shortness of breath: (2) Malignant pleural effusion: Plan -- Malignant bilateral pleural effusion Right-sided Pleurx catheter placed 02/02/2023 Patient has now left-sided pleural effusion She is interested in getting Pleurx catheter placed Plan: Follow COVID-19, influenza A/B as well as RSV Last dose of apixaban was 02/12/2023 in the evening. Patient needs to be off of Eliquis for at least 48 hours to decrease the risk of bleeding. Given that she is not in any acute respiratory distress and able to maintain oxygen on room air. We will hold back on Pleurx catheter till the patient is off of Eliquis If there is any worsening in her respiratory status then will think about doing it earlier than that Patient as well as patient's daughter are in agreement with the plan Case was discussed with primary team Please note the above document was generated using voice recognition software. It may contain grammatical, syntax or spelling errors.Any formal questions or concerns about the content, text or information contained within the body of this dictation should be directly addressed to the provider for clarification. History of Present Illness Attending Physician: Li Campos MD History of Present Illness 72-year-old female was admitted to the hospital as a direct admit for generalized weakness and shortness of breath Past medical history: Metastatic ovarian CA with bilateral pleural effusion and peritoneal carcinomatosis, history of DVT on Eliquis, history of CVA Pulmonary consulted for left-sided pleural effusion. At the time of examination patient's daughter was in the room. She was not in any respiratory distress. She did look lethargic and tired. She was saturating 97% on room air with heart rate in the 130s. Did complain of some mild discomfort in the belly. Shortness of breath on exertion She has been draining the right-sided Pleurx catheter. Last time it was drained of only 80 mL Does complain of constipation No fever or chills No dysuria, no diarrhea Did complain of decrease in appetite as well as decrease in oral intake No dizziness, no lightheadedness Social history: Lifetime non-smoker Allergies Allergy/AdvReac Type Severity Reaction Status Date / Time adhesive tape Allergy Intermediate localized Verified 02/03/23 11:03 skin reddness/irritation latex Allergy Intermediate localized Verified 02/03/23 11:03 skin reddness/irritation aspirin Allergy Mild facial Verified 02/03/23 11:03 flushing ciprofloxacin Allergy Unknown Rash Verified 02/03/23 11:03 Home Medications Medication Instructions Recorded Confirmed Type cholecalciferol (vitamin D3) 25 1,000 units PO QPM 11/09/18 02/13/23 History mcg (1,000 unit) capsule paroxetine HCl 10 mg tablet (Paxil) 10 mg PO QDB #90 tabs 04/08/22 02/13/23 Rx atorvastatin 20 mg tablet 20 mg PO HS #90 tabs 04/29/22 02/13/23 Rx cyanocobalamin (vitamin B-12) 1,000 mcg PO DAILY 06/26/22 02/13/23 History 1,000 mcg tablet (Vitamin B-12) folic acid 400 mcg tablet 0.4 mg PO QPM 06/26/22 02/13/23 History loratadine 10 mg tablet (Claritin) 10 mg PO UD PRN Allergy Symptoms 06/26/22 02/13/23 History omeprazole 20 mg capsule,delayed 20 mg PO QAM #90 caps 09/18/22 02/13/23 Rx release Bifidobacterium infantis 4 mg 4 mg PO DAILY 11/07/22 02/13/23 History capsule (Align) acetaminophen 650 mg 650 mg PO Q8H PRN Pain 11/07/22 02/13/23 History tablet,extended release (Tylenol Arthritis Pain) fluticasone propionate 50 2 spray intranasal HS 11/07/22 02/13/23 History mcg/actuation nasal spray,suspension calcium carbonate 600 mg-vitamin 1 tab PO BID 11/27/22 02/13/23 History D3 10 mcg (400 unit) tablet (Calcium 600 + D(3)) [id number] 5 mg-zeaxanth 1 cap PO DAILY 11/27/22 02/13/23 History 1 mg-bilberry 7.5 mg-herbal capsule (Macular Health Formula) multivitamin (Daily Multi-Vitamin 1 tab PO DAILY 11/27/22 02/13/23 History tablet) magnesium oxide See Rx Instructions PO .COMPLEX 12/02/22 02/13/23 History apixaban 5 mg tablet (Eliquis) 5 mg PO BID #180 tabs 12/04/22 02/13/23 Rx clopidogrel 75 mg tablet 75 mg PO QAM #90 tabs 12/04/22 02/13/23 Rx lorazepam 0.5 mg tablet (Ativan) 0.5 mg PO BID PRN anxiety #60 tabs 12/04/22 02/03/23 Rx allopurinol 300 mg tablet 300 mg PO DAILY 02/13/23 02/13/23 History prochlorperazine maleate 10 mg 10 mg PO Q6 PRN Nausea 02/13/23 02/13/23 History tablet Patient History Medical History Anemia Anxiety Benign essential hypertension Chronic interstitial cystitis Chronic reflux esophagitis Depression Endometrial cancer GERD (gastroesophageal reflux disease) History of DVT of lower extremity History of endometrial cancer Hx of basal cell carcinoma Hyperlipidemia Hyperlipidemia Hypertension Nausea and vomiting after administration of anesthetic agent Osteopenia Seasonal allergies 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 Uterine cancer Surgical History H/O laparoscopy H/O: hysterectomy History of colonoscopy History of cystoscopy History of vascular access device Hx of basal cell carcinoma excision Hx of tonsillectomy Port-A-Cath in place (07/02/22) Family History Mother Hypertension Malignant neoplasm of urinary bladder Denies family history of Ovarian cancer Prostate cancer Myocardial infarction Breast cancer Colorectal cancer Social History (Updated 02/03/23 @ 11:01 by Rosette Armenta RN) Smoking Status: Never smoker Tobacco Type: Cigarettes Age Started Using Tobacco: 20; Age Quit Using Tobacco: 22; packs per day: 0.5; Cigarettes Per Day: 10 or less; Second Hand Exposure: No; Do You Dip or Chew Tobacco: No; Hx Alcohol Use: No Hx Substance Use: No Preferred Language: New Zealander Communication Ability: Effective Visual Impairment: No Limitations Hearing Ability: Normal Tobacco Packer Required: No Beliefs That Will Affect Care: None marital status: Current Living Situation: Family Current Living Situation Comment: Lives with daughter Gardenia current occupational status: retired How many Children do You have: 2 Other Information That Helps Us Care for You: No Feels Safe at Home: Yes Safety Concerns: Feels Safe At This Time Childhood Exposure to Second-Hand Smoke: Yes Diet: regular caffeine: Yes during the past year weight has: remained stable Dental Care, Regularly: Yes Physical Activity Frequency: 3-4 Times per Week Seatbelt Use: always Sunscreen Use: Yes Assistive Devices: Bedside Commode, Glasses, Hospital Bed, Walker and Wheelchair Review of Systems Review of Systems: All systems reviewed & are unremarkable except as noted in HPI & below Physical Exam Physical Exam: Constitutional: No acute distress HEENT: EOMI, PERRLA Respiratory system: Decreased air entry on the left side, no wheeze, no rhonchi, mild crackles bilateral lower lobes CVS: S1-S2 positive, no murmurs or gallops, tachycardia Abdomen: Soft, nontender, tense, nondistended, positive bowel sounds x4 Extremities: +2 pulses bilaterally radialis/ dorsalis pedis, no cyanosis, +2 pitting edema bilateral lower extremity Neuro: Awake alert oriented x3 Psych: Normal mood and affect G/U: No [place] Skin: no rashes, warm and dry Lymphatic: no cervical or axillary lymphadenopathy Results & Data Results & Data Vital Signs (Past 12 Hours) Vital Signs Temp Pulse Pulse Resp BP Pulse Ox O2 Del Method 02/13/23 15:14 36.4 C L 86 18 121/80 97 Room Air 02/13/23 14:32 131 H 02/13/23 12:04 36.5 C 115 H 19 123/85 96 Room Air 02/13/23 12:24 36.5 C 115 H 19 123/85 96 Room Air Laboratory Results 02/13/23 12:54 02/13/23 17:01 PG Care Time/CCT Total # of Minutes Spent Total Time Spent with Patient: Total time spent is greater than 50% in coordination of care (as documented) at patient's floor/unit and/or counseling patient: Coding Level of Care Code 21971 INT INP/OBS CARE 3/75MIN Diagnoses Exertional shortness of breath R06.02 Malignant pleural effusion J91.0
[2023-02-13 18:25] LABS: Partial Thromboplastin Time 27.9 Seconds (21.0-31.0); Prothrombin Time 11.4 Seconds (9.0-12.0)
[2023-02-13] MEDS ORDERED: PROCHLORPERAZINE 5 MG in SYRINGE 4 ML IV ONE (20:01)
[2023-02-13] MEDS: PLASMA-LYTE A 1,000 ML IV SCH (22:26)
[2023-02-13] MEDS: ATORVASTATIN 20 MG TAB PO SCH (22:27)
[2023-02-13] MEDS: CALCIUM 600MG + VIT D 400 IU TAB PO SCH (22:27)
[2023-02-13] MEDS: CHOLECALCIFEROL 1,000 UNITS 25 MCG TAB PO SCH (22:27)
[2023-02-13] MEDS: FOLIC ACID 400 MCG TAB PO SCH (22:27)
[2023-02-14 04:25] LABS: Adenovirus PCR Not Detected (NotDetected); Bordetella parapertussis PCR Not Detected (NotDetected); Bordetella pertussis PCR Not Detected (NotDetected); Chlamydia pneumoniae PCR Not Detected (NotDetected); Coronavirus 229E PCR Not Detected (NotDetected); Coronavirus CoV-2 (COVID19)PCR Not Detected (NotDetected); Coronavirus HKU1 PCR Not Detected (NotDetected); Coronavirus NL63 PCR Not Detected (NotDetected); Coronavirus OC43PCR Not Detected (NotDetected); Human Metapneumovirus PCR Not Detected (NotDetected); Influenza A PCR Not Detected (NotDetected); Influenza B PCR Not Detected (NotDetected); Mycoplasma pneumoniae PCR Not Detected (NotDetected); Parainfluenza Virus 1 PCR Not Detected (NotDetected); Parainfluenza Virus 2 PCR Not Detected (NotDetected); Parainfluenza Virus 3 PCR Not Detected (NotDetected); Parainfluenza Virus 4 PCR Not Detected (NotDetected); Respiratory Syncytial VirusPCR Not Detected (NotDetected); Rhinovirus/Enterovirus PCR Not Detected (NotDetected)
[2023-02-14 06:12] LABS: Basophils # (auto) 0.01 K/uL (0.00-0.20); Basophils % (auto) 0.1 %; Eosinophils # (auto) 0.01 K/uL (0.00-0.50); Eosinophils % (auto) 0.1 %; Hematocrit (blood only) 32.2 % (37.0-47.0); Hemoglobin 10.6 g/dl (12.0-16.0); Lymphocytes % (auto) 4.8 %; Mean Corpuscular Hemoglobin 30.5 pg (25.0-34.0); Mean Corpuscular Hgb Conc 32.9 g/dL (32.0-36.0); Mean Corpuscular Volume 92.5 fL (80.0-100.0); Mean Platelet Volume 9.5 fL (9.4-12.4); Monocytes # (auto) 0.57 K/uL (0.11-0.59); Monocytes % (auto) 5.5 %; Neutrophils # (auto) 9.23 K/uL (1.40-6.50); Neutrophils % (auto) 88.5 %; Platelet Count 250 K/uL (130-400); RDW Coefficient of Variation 15.5 % (11.5-14.5); RDW Standard Deviation 52.2 fL (36.4-46.3); Red Blood Count 3.48 M/uL (4.20-5.40); White Blood Count 10.42 K/ul (4.8-10.8)
[2023-02-14 06:28] LABS: Albumin Globulin Ratio 0.8 (0.9-2); Albumin Level 2.4 gm/dl (3.4-5.0); BUN Creatinine Ratio 19.1 (10-20); BUN Creatinine Ratio 19.4 (10-20); Bilirubin,Total 0.4 mg/dl (0.2-1.0); Creatinine Clr Calc Pharmacy 15.4 ml/min; Creatinine Clr Calc Pharmacy 15.6 ml/min; Est GFR (African American) 16.3 ml/min; Est GFR (Non-African American) 13.8 ml/min; Magnesium 2.4 mg/dl (1.7-2.4); Phosphorus 5.6 mg/dl (2.5-4.9); Potassium 4.4 mmol/L (3.5-5.1); Total Protein 5.4 gm/dl (6.0-8.3)
[2023-02-14 06:45] LABS: Partial Thromboplastin Time 28.1 Seconds (21.0-31.0); Prothrombin Time 11.2 Seconds (9.0-12.0)
[2023-02-14] MEDS: PLASMA-LYTE A 1,000 ML IV SCH ×2 (08:04→17:58)
[2023-02-14] MEDS: CALCIUM 600MG + VIT D 400 IU TAB PO SCH ×2 (08:06→22:58)
[2023-02-14] MEDS: allopurinoL 300 MG TAB PO SCH (08:06)
[2023-02-14] MEDS ORDERED: PANTOprazole 40 MG TAB PO SCH (09:00)
[2023-02-14] MEDS ORDERED: CEROVITE ADV FORMULA TAB PO SCH (09:00)
[2023-02-14] MEDS ORDERED: MULTIVITAMIN TAB PO SCH (09:00)
[2023-02-14] MEDS ORDERED: CYANOCOBALAMIN (B-12) 500 MCG TABLET PO SCH (09:00)
--- NOTE | 2023-02-14 10:38 | Pulmonology Progress Note ---
Date of Service February 14, 2023 Assessment & Plan (1) Exertional shortness of breath: (2) Malignant pleural effusion: Plan 2D echo 11/08/2022: EF 50-55%, RVSP is normal -- Malignant bilateral pleural effusion Right-sided Pleurx catheter placed 02/02/2023 Patient has now left-sided pleural effusion Respiratory bio fire negative for everything on 02/13/2023 She is interested in getting Pleurx catheter placed Plan: Last dose of apixaban was 02/12/2023 in the evening. Patient needs to be off of Eliquis for at least 48 hours to decrease the risk of bleeding. Plan to have Pleurx catheter on the left side tomorrow. Hold all anticoag Patient as well as patient's daughter are in agreement with the plan Would recommend strict measurement of urinary output, can consider bladder scan to make sure patient does not have overflow incontinence Case was discussed with primary team and RN at bedside Please note the above document was generated using voice recognition software. It may contain grammatical, syntax or spelling errors.Any formal questions or concerns about the content, text or information contained within the body of this dictation should be directly addressed to the provider for clarification. Admission and Anticipated Discharge Date Admission Date: February 13, 2023 Subjective Patient seen and examined at bedside. No acute distress, no adverse events overnight She states that she is feeling better compared to yesterday Was saturating 96-97% on room air. Her heart rate was in the 140s Denies any dizziness Appetite is still poor She has been getting IV fluids Review of Systems Review of Systems: All systems reviewed & are unremarkable except as noted in Subjective Physical Exam Physical Exam: Constitutional: No acute distress HEENT: EOMI, PERRLA Respiratory system: Decreased air entry on the left side, no wheeze, no rhonchi, mild crackles bilateral lower lobes CVS: S1-S2 positive, no murmurs or gallops, tachycardia Abdomen: Soft, nontender, tense, nondistended, positive bowel sounds x4 Extremities: +2 pulses bilaterally radialis/ dorsalis pedis, no cyanosis, +2 pitting edema bilateral lower extremity Neuro: Awake alert oriented x3 Psych: Normal mood and affect G/U: No Navarro Skin: no rashes, warm and dry Lymphatic: no cervical or axillary lymphadenopathy Results & Data Results & Data Vital Signs (Past 12 Hours) Vital Signs Temp Pulse Resp BP Pulse Ox O2 Del Method 02/14/23 07:46 36.6 C 141 H 18 130/93 94 Room Air 02/14/23 04:48 36.4 C L 95 H 14 122/88 95 Room Air 02/13/23 22:47 36.4 C L 138 H 16 112/81 94 Room Air Laboratory Results 02/14/23 05:31 02/14/23 05:31 PG Care Time/CCT Total # of Minutes Spent Total Time Spent with Patient: Total time spent is greater than 50% in coordination of care (as documented) at patient's floor/unit and/or counseling patient: Coding Level of Care Code 61776 SUB INP/OBS CARE 2/35MIN Diagnoses Exertional shortness of breath R06.02 Malignant pleural effusion J91.0
--- NOTE | 2023-02-14 13:08 | Hospitalist Progress Note ---
Date of Service February 14, 2023 Assessment & Plan (1) KISHA (acute kidney injury): Plan: Creatinine was 0.9 to 1 over the summer, rising into the 2's in January and early February, and is now >3. Despite copious IV fluids overnight she has had no change in her creatinine. Renal u/s with b/l hydronephrosis - progressive on left side. This is presumably due to obstruction from her cancer. In addition, she is urinating small amounts frequently. Bladder scan PVR was >500cc. Urology was consulted today; I spoke with Dr Padilla. Need for b/l ureteral stents due to progressive renal dysfunction and the hydronephrosis?? Check u/a and urine cx. BMP am. (2) Atrial flutter with rapid ventricular response: Plan: EKGs and tele strips seem most c/w a.flutter, 2:1 block. no response to IV lopressor yesterday. seems asymptomatic from it, but perhaps some of her weakness/fatigue is from this. spoke with Dr Worthington who will formally consult. we discussed placing her on standard heparin dosing while Eliquis is on hold (last dose taken am) and also initiating amiodarone. 150mg bolus followed by drip. most recent TSH was wnl. (3) Malignant pleural effusion: Plan: b/l already has pleurX on right Dr Vegas considering placing a pleurX on left Eliquis is on hold for such (4) Hydronephrosis: Plan: b/l was severe on right chronically the left-sided hydro has worsened over the last few months see #1 above (5) Uterine cancer: Plan: stage 4, with carcinomatosis and distal mets was to have chemotherapy the AM of admission at [facility] but was deferred and she was sent to ER due to her illness (6) History of CVA (cerebrovascular accident): Plan: noted (7) Nausea: Plan: exact etiology uncertain due to KISHA? due to infectious etiology? due to ileus? (no BM in several days) due to obstruction? other? check KUB first may need CT a/p could even need head imaging to r/o [place] mets (8) History of deep venous thrombosis (DVT) of distal vein of left lower extremity: Plan: LLE in early 2022 has been on Eliquis since then Eliquis on hold due to procedures Heparin drip in tho (9) Benign essential hypertension: Plan: not on meds for such at home (10) Carcinomatosis: Plan: all prior imaging with extensive carcinomatosis see discussions above Plan care d/w cardiology care d/w urology daughter updated very complex situation Admission and Anticipated Discharge Date Admission Date: February 13, 2023 Subjective pt resting comfortably in bed during my visit daughter at bedside tele overnight - HRs low 140s, appears to be a flutter; has been in such since yesterday she denies any palpitations having LUTS with decreased UOP has not had a bowel movement in several days weakness is her biggest complaint she denies any dyspnea nausea is a bit better today - has not had emesis today denies any abd pain her Eliquis is on hold - she is hoping to have L pleurX catheter placed tomorrow by Dr Vegas she has been draining her R pleurX catheter twice weekly at home; typical amounts obtained <100cc each drain Review of Systems Review of Systems: gen - no fevers cv - no chest pain pulm - denies dyspnea GI - nausea/emesis/dry heaves at home - LUTS, poor UOP, but no dysuria Physical Exam Physical Exam: gen - looks generally unwell, NAD, lying in bed, looks tired mouth - MMM neck - no JVD heart - tachy, s1 s2, no murmur lungs - decreased BS left base, CTA on right, no increased work of breathing abd - distended, BS+, NT, no HSM ext - pulses 2+ b/l, no edema skin - mild pallor psych - a/o x 3 Results & Data Results & Data Vital Signs (Past 12 Hours) Vital Signs Temp Pulse Resp BP Pulse Ox O2 Del Method 02/14/23 11:57 36.2 C L 146 H 18 131/92 96 Room Air 02/14/23 11:11 Room Air 02/14/23 07:46 36.6 C 141 H 18 130/93 94 Room Air 02/14/23 04:48 36.4 C L 95 H 14 122/88 95 Room Air Laboratory Results Laboratory Results - last 24 hr 02/13/23 02/13/23 02/13/23 12:54 17:01 17:01 WBC 10.95 H RBC 3.73 L Hgb 11.3 L Hct 34.7 L MCV 93.0 MCH 30.3 MCHC 32.6 RDW Std Deviation 52.3 H RDW Coeff of Elie 15.5 H Plt Count 278 MPV 9.5 Immature Gran % (Auto) 0.6 Neut % (Auto) 89.0 Lymph % (Auto) 4.4 [place] % (Auto) 5.8 Eos % (Auto) 0.0 Baso % (Auto) 0.2 Neut # (Auto) 9.74 H Lymph # (Auto) 0.48 L [place] # (Auto) 0.64 H Eos # (Auto) 0.00 Baso # (Auto) 0.02 Immature Gran # (Auto) 0.07 PT 11.4 INR 1.0 APTT 27.9 PTT Ratio 1.0 Sodium 130 L Potassium 4.1 Chloride 98 Carbon Dioxide 20 L Anion Gap 12 H BUN 56 H Creatinine 3.30 H Est Cr Clr Drug Dosing 14.9 Est GFR ( Amer) 15.4 Est GFR (Non-Af Amer) 13.3 BUN/Creatinine Ratio 17.0 Glucose 118 H Calcium 8.4 L Phosphorus Magnesium Total Bilirubin 0.4 AST 80 H ALT 56 H Alkaline Phosphatase 293 H Total Protein 6.1 Albumin 2.7 L Globulin 3.4 Albumin/Globulin Ratio 0.8 L Adenovirus (PCR) B. pertussis DNA (PCR) B.parapertussis DNA PCR C. pneumoniae DNA (PCR) Coronavirus OC43 (PCR) Coronavirus HKU1 (PCR) Coronavirus 229E (PCR) SARS-CoV-2 (PCR) Coronavirus NL63 (PCR) Human Metapneumovir PCR Influenza Type A (PCR) Influenza Type B (PCR) M. pneumoniae (PCR) Parainfluenza 1 (PCR) Parainfluenza 2 (PCR) Parainfluenza 3 (PCR) Parainfluenza 4 (PCR) RSV (PCR) Entero/Rhino (PCR) 02/14/23 02/14/23 02/14/23 01:35 05:31 05:31 WBC 10.42 RBC 3.48 L Hgb 10.6 L Hct 32.2 L MCV 92.5 MCH 30.5 MCHC 32.9 RDW Std Deviation 52.2 H RDW Coeff of Elie 15.5 H Plt Count 250 MPV 9.5 Immature Gran % (Auto) 1.0 Neut % (Auto) 88.5 Lymph % (Auto) 4.8 [place] % (Auto) 5.5 Eos % (Auto) 0.1 Baso % (Auto) 0.1 Neut # (Auto) 9.23 H Lymph # (Auto) 0.50 L [place] # (Auto) 0.57 Eos # (Auto) 0.01 Baso # (Auto) 0.01 Immature Gran # (Auto) 0.10 PT 11.2 INR 1.0 APTT 28.1 PTT Ratio 1.0 Sodium Potassium Chloride Carbon Dioxide Anion Gap BUN Creatinine Est Cr Clr Drug Dosing Est GFR ( Amer) Est GFR (Non-Af Amer) BUN/Creatinine Ratio Glucose Calcium Phosphorus Magnesium Total Bilirubin AST ALT Alkaline Phosphatase Total Protein Albumin Globulin Albumin/Globulin Ratio Adenovirus (PCR) Not Detected B. pertussis DNA (PCR) Not Detected B.parapertussis DNA PCR Not Detected C. pneumoniae DNA (PCR) Not Detected Coronavirus OC43 (PCR) Not Detected Coronavirus HKU1 (PCR) Not Detected Coronavirus 229E (PCR) Not Detected SARS-CoV-2 (PCR) Not Detected Coronavirus NL63 (PCR) Not Detected Human Metapneumovir PCR Not Detected Influenza Type A (PCR) Not Detected Influenza Type B (PCR) Not Detected M. pneumoniae (PCR) Not Detected Parainfluenza 1 (PCR) Not Detected Parainfluenza 2 (PCR) Not Detected Parainfluenza 3 (PCR) Not Detected Parainfluenza 4 (PCR) Not Detected RSV (PCR) Not Detected Entero/Rhino (PCR) Not Detected 02/14/23 02/14/23 05:31 05:31 WBC RBC Hgb Hct MCV MCH MCHC RDW Std Deviation RDW Coeff of Elie Plt Count MPV Immature Gran % (Auto) Neut % (Auto) Lymph % (Auto) [place] % (Auto) Eos % (Auto) Baso % (Auto) Neut # (Auto) Lymph # (Auto) [place] # (Auto) Eos # (Auto) Baso # (Auto) Immature Gran # (Auto) PT INR APTT PTT Ratio Sodium 130 L 130 L Potassium 4.4 4.4 Chloride 97 L 97 L Carbon Dioxide 21 21 Anion Gap 12 H 12 H BUN 61 H 61 H Creatinine 3.20 H 3.15 H Est Cr Clr Drug Dosing 15.4 15.6 Est GFR ( Amer) 16.0 16.3 Est GFR (Non-Af Amer) 13.8 14.0 BUN/Creatinine Ratio 19.1 19.4 Glucose 98 98 Calcium 8.0 L 8.0 L Phosphorus 5.6 H Magnesium 2.4 Total Bilirubin 0.4 AST 69 H ALT 49 Alkaline Phosphatase 258 H Total Protein 5.4 L Albumin 2.4 L Globulin 3.0 Albumin/Globulin Ratio 0.8 L Adenovirus (PCR) B. pertussis DNA (PCR) B.parapertussis DNA PCR C. pneumoniae DNA (PCR) Coronavirus OC43 (PCR) Coronavirus HKU1 (PCR) Coronavirus 229E (PCR) SARS-CoV-2 (PCR) Coronavirus NL63 (PCR) Human Metapneumovir PCR Influenza Type A (PCR) Influenza Type B (PCR) M. pneumoniae (PCR) Parainfluenza 1 (PCR) Parainfluenza 2 (PCR) Parainfluenza 3 (PCR) Parainfluenza 4 (PCR) RSV (PCR) Entero/Rhino (PCR) PG Care Time/CCT Total # of Minutes Spent Total Time Spent with Patient: Total time spent is greater than 50% in coordination of care (as documented) at patient's floor/unit and/or counseling patient: Coding Level of Care Code 35111 SUB INP/OBS CARE 3/50MIN Diagnoses KISHA (acute kidney injury) N17.9 Atrial flutter with rapid ventricular response I48.92 Malignant pleural effusion J91.0 Hydronephrosis N13.30 Uterine cancer C55 History of CVA (cerebrovascular accident) Z86.73 Nausea R11.0 History of deep venous thrombosis (DVT) of distal vein of left lower extremity Z86.718 Benign essential hypertension I10 Carcinomatosis C80.0
[2023-02-14] MEDS ORDERED: Heparin IV Adult Wt-Based Standard *NO* Bolus Protocol IV SCH (13:15)
[2023-02-14] MEDS ORDERED: HEPARIN SODIUM/DEXTROSE 25,000 UNITS/500 ML BAG IV SCH (13:30)
[2023-02-14] MEDS: PARoxetine HCL 10 MG TAB PO SCH (13:35)
[2023-02-14] MEDS ORDERED: AMIODARONE / D5W 150 MG/100 ML BAG IV STA (13:52)
[2023-02-14] MEDS ORDERED: STAT IV Infusion **Titration per Protocol STA (13:52)
[2023-02-14] MEDS ORDERED: AMIODARONE IV BOLUS & DRIP IV STA (13:52)
[2023-02-14] MEDS ORDERED: 0.2 MICRON FILTER SET 1 EACH IV STA (13:52)
--- NOTE | 2023-02-14 13:55 | Urology Consultation ---
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 Avina with known history of a gynecologic malignancy with ascites malignant pleural effusion and hematuria with hydronephrosis. Patient has acute kidney injury. Has progression of the hydronephrosis on the left side. Patient has been having severe nausea and poor oral intake. Is undergoing hydration. Patient's lab work was all reviewed. Values in the HPI plan section. Hemoglobin is 10.6. Creatinine is 3.2 which is elevated over the last month. Patient's white count is 10.42. Patient's medications were reviewed has previously been on Plavix. Patient's vitals are currently stable with tachycardia at 146. Blood pressure 131/92. Patient's satting 96% on room air. No signs of fever with most recent temperature 36.2. Patient's complicated medical and surgical history was reviewed and summarized above. All imaging was reviewed interpreted by myself. Does have bilateral hydronephrosis with worsening hydronephrosis on the left. Patient has significant hydronephrosis likely from external compression versus scarring versus obstructive issues. Has had poor oral intake which is likely the largest contributing factor. Is undergoing IV hydration. Reviewed extensively with different options for the patient moving forward. Discussed possible need for stent placement. Discussed different options for management of this. Discussed patient's ongoing issues with hematuria. Discussed expectations and recovery. Discussed possible options moving forward. Discussed options for observation. Discussed different options moving forward. We will plan for observation for now. We will plan to have patient n.p.o. at midnight in case any need for stent placement is determined. Did discuss extensively stents with patient and different options moving forward. Did also review different options for management including nephrostomy tubes and other options. Discussed Navarro decompression as well. Discussed maximizing drainage. Will monitor overnight. NPO at midnight. Possible intervention with stents if not improving. Patient has thoracocentesis tomorrow as well. can be done before or after. Bladder scan high with urgency. May be due to ascites and not related to bladder. Can try straight cath if worsening to determine true post void residual. History of Present Illness Attending Physician: Eduardo Blanco MD History of Present Illness New consultation for patient with KISHA, hydronephrosis, discomfort, and ill feelings. Patient was admitted with weakness. Illness. Has a known malignancy of the abdomen. Has significant history of mllerian tumor of the uterus. Has had ascites as well as pleural effusions. Is being seen by pulmonology as well as the hospitalist team. Patient had worsening renal function. Does have occasional mild issues with back and flank pain. Has significant abdominal pain at baseline. Patient developed pain into flank going down and radiating into groin and back in waves comes and goes. Can be significantly bothersome at times Discussed and reviewed patient's family history for any history of issues, infections, and disease. Patient previously followed with Dr. Avina. Also, discussed patient's medical/surgery history especially related to any history of urinary issues or stone disease. Patient was admitted and is undergoing observation oral and IV hydration as well as close monitoring and management of her ongoing issues. Allergies Allergy/AdvReac Type Severity Reaction Status Date / Time adhesive tape Allergy Intermediate localized Verified 02/03/23 11:03 skin reddness/irritation latex Allergy Intermediate localized Verified 02/03/23 11:03 skin reddness/irritation aspirin Allergy Mild facial Verified 02/03/23 11:03 flushing ciprofloxacin Allergy Unknown Rash Verified 02/03/23 11:03 Home Medications Medication Instructions Recorded Confirmed Type cholecalciferol (vitamin D3) 25 1,000 units PO QPM 11/09/18 02/13/23 History mcg (1,000 unit) capsule paroxetine HCl 10 mg tablet (Paxil) 10 mg PO QDB #90 tabs 04/08/22 02/13/23 Rx atorvastatin 20 mg tablet 20 mg PO HS #90 tabs 04/29/22 02/13/23 Rx cyanocobalamin (vitamin B-12) 1,000 mcg PO DAILY 06/26/22 02/13/23 History 1,000 mcg tablet (Vitamin B-12) folic acid 400 mcg tablet 0.4 mg PO QPM 06/26/22 02/13/23 History loratadine 10 mg tablet (Claritin) 10 mg PO UD PRN Allergy Symptoms 06/26/22 02/13/23 History omeprazole 20 mg capsule,delayed 20 mg PO QAM #90 caps 09/18/22 02/13/23 Rx release Bifidobacterium infantis 4 mg 4 mg PO DAILY 11/07/22 02/13/23 History capsule (Align) acetaminophen 650 mg 650 mg PO Q8H PRN Pain 11/07/22 02/13/23 History tablet,extended release (Tylenol Arthritis Pain) fluticasone propionate 50 2 spray intranasal HS 11/07/22 02/13/23 History mcg/actuation nasal spray,suspension calcium carbonate 600 mg-vitamin 1 tab PO BID 11/27/22 02/13/23 History D3 10 mcg (400 unit) tablet (Calcium 600 + D(3)) [id number] 5 mg-zeaxanth 1 cap PO DAILY 11/27/22 02/13/23 History 1 mg-bilberry 7.5 mg-herbal capsule (Macular Health Formula) multivitamin (Daily Multi-Vitamin 1 tab PO DAILY 11/27/22 02/13/23 History tablet) magnesium oxide See Rx Instructions PO .COMPLEX 12/02/22 02/13/23 History apixaban 5 mg tablet (Eliquis) 5 mg PO BID #180 tabs 12/04/22 02/13/23 Rx clopidogrel 75 mg tablet 75 mg PO QAM #90 tabs 12/04/22 02/13/23 Rx lorazepam 0.5 mg tablet (Ativan) 0.5 mg PO BID PRN anxiety #60 tabs 12/04/22 02/03/23 Rx allopurinol 300 mg tablet 300 mg PO DAILY 02/13/23 02/13/23 History prochlorperazine maleate 10 mg 10 mg PO Q6 PRN Nausea 02/13/23 02/13/23 History tablet Patient History Medical History Anemia Anxiety Benign essential hypertension Chronic interstitial cystitis Chronic reflux esophagitis Depression Endometrial cancer GERD (gastroesophageal reflux disease) History of DVT of lower extremity left leg History of endometrial cancer Hx of basal cell carcinoma Hyperlipidemia Hyperlipidemia Hypertension Nausea and vomiting after administration of anesthetic agent Osteopenia Seasonal allergies 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 still inplace. will bring card for current port DOS. Hx of basal cell carcinoma excision Hx of tonsillectomy Port-A-Cath in place (07/02/22) Insertion of Right Internal Jugular Access Port with Fluoroscopy(Right) - Martin Clark DO, FACS Family History Mother Hypertension Malignant neoplasm of urinary bladder Denies family history of Ovarian cancer Prostate cancer Myocardial infarction Breast cancer Colorectal cancer Social History Smoking Status: Never smoker Tobacco Type: Cigarettes Age Started Using Tobacco: 20; Age Quit Using Tobacco: 22; packs per day: 0.5; Cigarettes Per Day: 10 or less; Second Hand Exposure: No; Do You Dip or Chew Tobacco: No; Hx Alcohol Use: No Hx Substance Use: No Preferred Language: Swiss Communication Ability: Effective Visual Impairment: No Limitations Hearing Ability: Normal Communication Engineer Required: No Beliefs That Will Affect Care: None marital status: Current Living Situation: Family Current Living Situation Comment: Lives with daughter Gardenia current occupational status: retired How many Children do You have: 2 Other Information That Helps Us Care for You: No Feels Safe at Home: Yes Safety Concerns: Feels Safe At This Time Childhood Exposure to Second-Hand Smoke: Yes Diet: regular caffeine: Yes during the past year weight has: remained stable Dental Care, Regularly: Yes Physical Activity Frequency: 3-4 Times per Week Seatbelt Use: always Sunscreen Use: Yes Assistive Devices: Bedside Commode, Glasses, Hospital Bed, Walker and Wheelchair Review of Systems Review of Systems: All systems reviewed & are unremarkable except as noted in HPI & below Physical Exam Physical Exam: General: Alert and oriented x 3 in no acute distress. HEENT: Normocephalic Atraumatic. Inspection normal. Cranial Nerves 2-12 Grossly intact. Nares are clear. Neck is supple. Normal inspection of face. Normal inspection of neck. Neurologic: No deficits on inspection. Baseline for motor function and sensory. Psychologic: Normal affect. Respiratory: Nonlabored. No use of accessory muscles. No tachypnea or dyspnea. Cardiovascular: No tachycardia Skin: Colt and Dry. No rashes or visible lesions. Extremities: Moving without issues. No motor deficits on inspection Lymphatics: No edema Abdomen: Distended. No rebound or guarding. 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
[2023-02-14] MEDS ORDERED: AMIODARONE / D5W 360 MG/200 ML BAG IV ONE (14:02)
[2023-02-14] MEDS: POLYETHYLENE (MIRALAX) 17 GM PACK PO SCH (19:47)
[2023-02-14] MEDS: PROCHLORPERAZINE 5 MG in SYRINGE 4 ML IV PRN (19:47)
[2023-02-14] MEDS: AMIODARONE / D5W 360 MG/200 ML BAG IV SCH (20:10)
[2023-02-14] MEDS: CHOLECALCIFEROL 1,000 UNITS 25 MCG TAB PO SCH (22:58)
[2023-02-14] MEDS: ATORVASTATIN 20 MG TAB PO SCH (22:58)
[2023-02-14] MEDS: FOLIC ACID 400 MCG TAB PO SCH (22:58)
[2023-02-14 23:34] LABS: Partial Thromboplastin Ratio 3.2
[2023-02-15 00:12] LABS: Partial Thromboplastin Time 88.9 Seconds (21.0-31.0)
[2023-02-15 00:52] LABS: Appearance Urine Turbid (Clear); Bacteria Urine Automated Negative (Negative); Bilirubin Urine Negative (Negative); Blood Urine 3+ (Negative); Color Urine Dark Yellow; Epithelial Cell Urine Auto >30 /lpf (0-5); Glucose Urine UA Negative (Negative); Ketones Urine Negative (Negative); Leukocyte Esterase Urine 1+ (Negative); Nitrite Urine Negative (Negative); Protein Urine 1+ (Negative); Urobilinogen Urine Negative (Negative)
[2023-02-15 01:24] LABS: RBC Urine Automated >30 /hpf (0-4)
[2023-02-15] MEDS ORDERED: PROCHLORPERAZINE 5 MG in SYRINGE 4 ML IV PRN (02:14)
[2023-02-15] MEDS ORDERED: LORazepam 2 MG/1 ML VIAL IV PRN (06:06)
--- NOTE | 2023-02-15 07:11 | Electrocardiogram Report ---
Test Reason : Blood Pressure : / mmHG Vent. Rate : 143 BPM Atrial Rate : 143 BPM P-R Int : 112 ms QRS Dur : 066 ms QT Int : 292 ms P-R-T Axes : 075 036 159 degrees QTc Int : 450 ms Atrial flutter with 2 to 1 block Cannot rule out Anterior infarct , age undetermined Abnormal ECG When compared with ECG of 27-NOV-2022 14:26, Vent. rate has increased BY 83 BPM Nonspecific T wave abnormality now evident in Lateral leads Confirmed by Anup Worthington ([id number]) on 02/15/2023 7:10:36 AM Referred By: Gali Moore Confirmed By:Anup Worthington
[2023-02-15 07:31] LABS: Basophils # (auto) 0.01 K/uL (0.00-0.20); Basophils % (auto) 0.1 %; Eosinophils # (auto) 0.01 K/uL (0.00-0.50); Eosinophils % (auto) 0.1 %; Hematocrit (blood only) 33.5 % (37.0-47.0); Hemoglobin 11.3 g/dl (12.0-16.0); Immature Granulocytes # (auto) 0.12 K/uL (0.01-0.20); Lymphocytes # (auto) 0.61 K/uL (1.20-3.40); Mean Corpuscular Hemoglobin 30.5 pg (25.0-34.0); Mean Corpuscular Hgb Conc 33.7 g/dL (32.0-36.0); Mean Corpuscular Volume 90.5 fL (80.0-100.0); Mean Platelet Volume 9.6 fL (9.4-12.4); Monocytes # (auto) 0.73 K/uL (0.11-0.59); Neutrophils # (auto) 10.78 K/uL (1.40-6.50); Neutrophils % (auto) 87.8 %; Platelet Count 263 K/uL (130-400); RDW Coefficient of Variation 15.5 % (11.5-14.5); RDW Standard Deviation 51.1 fL (36.4-46.3); White Blood Count 12.26 K/ul (4.8-10.8)
--- NOTE | 2023-02-15 07:38 | Electrocardiogram Report ---
Test Reason : Blood Pressure : / mmHG Vent. Rate : 140 BPM Atrial Rate : 140 BPM P-R Int : 132 ms QRS Dur : 084 ms QT Int : 270 ms P-R-T Axes : 086 021 121 degrees QTc Int : 412 ms Sinus tachycardia Septal infarct (cited on or before 13-FEB-2023) Abnormal ECG When compared with ECG of 13-FEB-2023 17:10, (unconfirmed) No significant change Confirmed by Anup Worthington ([id number]) on 02/15/2023 7:38:03 AM Referred By: Gali Moore Confirmed By:Anup Worthington
[2023-02-15] MEDS: AMIODARONE / D5W 360 MG/200 ML BAG IV SCH ×2 (07:46→19:30)
[2023-02-15] MEDS: PANTOprazole 40 MG in SYRINGE 0 ML IV SCH ×2 (07:47→20:32)
[2023-02-15 07:49] LABS: BUN Creatinine Ratio 18.6 (10-20); Calcium 8.2 mg/dl (8.6-10.3); Creatinine Clr Calc Pharmacy 13.9 ml/min; Est GFR (African American) 14.1 ml/min; Est GFR (Non-African American) 12.2 ml/min; Potassium 4.4 mmol/L (3.5-5.1)
[2023-02-15 09:38] LABS: Partial Thromboplastin Time 83.8 Seconds (21.0-31.0)
[2023-02-15] MEDS: PROCHLORPERAZINE 5 MG in SYRINGE 4 ML IV PRN (10:04)
[2023-02-15] MEDS: POLYETHYLENE (MIRALAX) 17 GM PACK PO SCH ×2 (10:10→20:32)
[2023-02-15] MEDS: allopurinoL 300 MG TAB PO SCH (10:10)
--- NOTE | 2023-02-15 10:15 | Pulmonology Progress Note ---
Date of Service February 15, 2023 Assessment & Plan (1) Exertional shortness of breath: (2) Malignant pleural effusion: Plan 2D echo 11/08/2022: EF 50-55%, RVSP is normal -- Malignant bilateral pleural effusion Right-sided Pleurx catheter placed 02/02/2023 Patient has now left-sided pleural effusion Respiratory bio fire negative for everything on 02/13/2023 She is interested in getting Pleurx catheter placed Plan: Last dose of apixaban was 02/12/2023 in the evening. Patient needs to be off of Eliquis for at least 48 hours to decrease the risk of bleeding. Patient was on heparin drip. It was stopped around 830. We will plan to do Pleurx catheter 4 hours since stopping of the heparin drip Patient's creatinine function is worsening. Creatinine today 3.65. Urology is planning to take the patient to have a stenting. I did explain to the patient and patient's family that given the worsening kidney function, taking care of the kidneys/stenting would take precedence then Pleurx catheter. A Pleurx catheter can still be placed after the stent is placed and later today or tomorrow. Case was discussed with primary team and RN at bedside Please note the above document was generated using voice recognition software. It may contain grammatical, syntax or spelling errors.Any formal questions or concerns about the content, text or information contained within the body of this dictation should be directly addressed to the provider for clarification. Admission and Anticipated Discharge Date Admission Date: February 13, 2023 Subjective Patient seen and examined at bedside. No acute distress, no adverse events overnight Patient's daughter as well as friend/rotary derrick operator was in the room Patient's creatinine is getting worse and urology is planning to put a stent in She denies any issues with her breathing. She still feels lethargic She was saturating 96% on room air No headache, no blurry vision Review of Systems Review of Systems: All systems reviewed & are unremarkable except as noted in Subjective Physical Exam Physical Exam: Constitutional: No acute distress HEENT: EOMI, PERRLA Respiratory system: Decreased air entry on the left side, no wheeze, no rhonchi, mild crackles bilateral lower lobes CVS: S1-S2 positive, no murmurs or gallops, tachycardia Abdomen: Soft, nontender, tense, nondistended, positive bowel sounds x4 Extremities: +2 pulses bilaterally radialis/ dorsalis pedis, no cyanosis, +2 pitting edema bilateral lower extremity Neuro: Awake alert oriented x3 Psych: Normal mood and affect G/U: No [place] Skin: no rashes, warm and dry Lymphatic: no cervical or axillary lymphadenopathy Results & Data Results & Data Vital Signs (Past 12 Hours) Vital Signs Temp Pulse Resp BP Pulse Ox O2 Del Method 02/15/23 08:59 36.6 C 131 H 20 123/94 96 Room Air 02/15/23 02:51 36.4 C L 127 H 20 118/85 92 Room Air 02/14/23 22:45 36.3 C L 130 H 20 131/91 94 Room Air Laboratory Results 02/15/23 07:16 02/15/23 07:16 PG Care Time/CCT Total # of Minutes Spent Total Time Spent with Patient: Total time spent is greater than 50% in coordination of care (as documented) at patient's floor/unit and/or counseling patient: Coding Level of Care Code 73615 SUB INP/OBS CARE 2/35MIN Diagnoses Exertional shortness of breath R06.02 Malignant pleural effusion J91.0
--- NOTE | 2023-02-15 11:19 | Urology Progress Note ---
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 Ureters previously had hydronephrosis significantly on the right but now is developed significant hydronephrosis bilaterally. Renal function has continued to worsen. Patient's been dealing with blood in the urine irritation urgency frequency with small volume frequent voiding. Has not been emptying well. Is also continued to deal with issues and fluid in the pleural space as well as ascites. Has not improved over time. Is set for thoracocentesis later today. Extensively reviewed options. Discussed short-term option of utilization of stents. Discussed possible issues and concerns. Discussed possibility of mass in the bladder or other obstructive issues versus mass effect from tumor or scar tissue inflammation or other issues external to the bladder. Discussed concerns and issues. Multiple questions from patient and family. Risk and benefits extensively reviewed. Risks and benefits discussed at length for procedure. These include bleeding, infection, injury to surrounding tissues or organs, and risks associated with anesthesia. Patient states understanding and agrees to proceed. Will sign consent and proceed. Plan for cystoscopy with bilateral stents Admission and Anticipated Discharge Date Admission Date: February 13, 2023 Subjective Patient admitted with weakness and illness secondary to malignancy. Had been found to have acute renal failure also has fluid on the lung with plans for thoracocentesis. Patient continues to have issues with hydronephrosis. Has been dealing with abdominal pain and discomfort. Patient is afebrile. Has been hydration therapy with oral medications, IV medications, IV fluids, and oral intake. Has not experienced fever or chills.Has noticed some frequency and urgency.Does have occasional burning and irritation. Patient has continued to have issues. Creatinine has worsened. Extensively reviewed options. Is voiding frequently with very small amounts. Is not producing large amounts of urine. Continues to have issues with third spacing of fluid with likely malignant ascites and pleural effusions. Patient remained tachycardic. Has not had drastic improvement. Overall has had worsening issues. Concerned due to development of worsening hydronephrosis on the left. Previously had largely obstruction on the right side. Concern about possible worsening obstructive issues of the kidneys. Review of Systems Review of Systems: All systems reviewed & are unremarkable except as noted in HPI & below Physical Exam Physical Exam: General: Alert in no acute distress. HEENT: Normocephalic Atraumatic. Inspection normal. Cranial Nerves 2-12 Grossly intact. Normal inspection of face. Normal inspection of neck. Psychologic: Normal affect. Respiratory: Nonlabored. No use of accessory muscles. No tachypnea or dyspnea. Cardiovascular: No tachycardia Skin: [place] and Dry. No rashes or visible lesions. Extremities/Lymphatics: No edema Abdomen: Moderately distended. No rebound or guarding. 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
--- NOTE | 2023-02-15 11:24 | XRay Report ---
XR KUB/Abdomen 1 view CLINICAL HISTORY: ongoing N/V, carcinomatosis; SBO? TECHNIQUE: 1 view of the abdomen was obtained. Comparison: Comparison is made to CT abdomen pelvis 09/23/2022 FINDINGS: An abdominal catheter is unchanged from prior exam. Degenerative changes are seen in the visualized s [place]. The bowel gas pattern is nonobstructive. A moderate amount of stool is noted within the larg e bowel. IMPRESSION: Nonobstructive bowel gas pattern. ACT 112: Negative or not required by law. Electronically signed by: Ronaldo Briscoe M.D. 02/15/2023 11:22 AM
--- NOTE | 2023-02-15 11:47 | Anesthesiology Consultation ---
Date of Service February 15, 2023 Assessment & Plan Chart Review Chart Review: Acceptable Risk for Surgery Consults Requested none History Surgery Operation Date: 02/15/23 12:00 Proposed Procedures p Ureteral Stent Insertion/Removal - Mitesh Padilla DO Height/Weight Height: 5 ft 3 in Weight: 74.4 kg Allergies Allergy/AdvReac Type Severity Reaction Status Date / Time adhesive tape Allergy Intermediate localized Verified 02/03/23 11:03 skin reddness/irritation latex Allergy Intermediate localized Verified 02/03/23 11:03 skin reddness/irritation aspirin Allergy Mild facial Verified 02/03/23 11:03 flushing ciprofloxacin Allergy Unknown Rash Verified 02/03/23 11:03 Medications Home Medications Medication Instructions Recorded Confirmed Last Taken cholecalciferol (vitamin D3) 25 1,000 units PO QPM 11/09/18 02/13/23 07/01/22 18:30 mcg (1,000 unit) capsule paroxetine HCl 10 mg tablet (Paxil) 10 mg PO QDB #90 tabs 04/08/22 02/13/23 07/02/22 07:00 atorvastatin 20 mg tablet 20 mg PO HS #90 tabs 04/29/22 02/13/23 02/12/23 cyanocobalamin (vitamin B-12) 1,000 mcg PO DAILY 06/26/22 02/13/23 07/01/22 18:30 1,000 mcg tablet (Vitamin B-12) folic acid 400 mcg tablet 0.4 mg PO QPM 06/26/22 02/13/23 07/02/22 1830 loratadine 10 mg tablet (Claritin) 10 mg PO UD PRN Allergy Symptoms 06/26/22 02/13/23 Unknown omeprazole 20 mg capsule,delayed 20 mg PO QAM #90 caps 09/18/22 02/13/23 Unknown release Bifidobacterium infantis 4 mg 4 mg PO DAILY 11/07/22 02/13/23 Unknown capsule (Align) acetaminophen 650 mg 650 mg PO Q8H PRN Pain 11/07/22 02/13/23 Unknown tablet,extended release (Tylenol Arthritis Pain) fluticasone propionate 50 2 spray intranasal HS 11/07/22 02/13/23 Unknown mcg/actuation nasal spray,suspension calcium carbonate 600 mg-vitamin 1 tab PO BID 11/27/22 02/13/23 Unknown D3 10 mcg (400 unit) tablet (Calcium 600 + D(3)) [id number] 5 mg-zeaxanth 1 cap PO DAILY 11/27/22 02/13/23 Unknown 1 mg-bilberry 7.5 mg-herbal capsule (Macular Health Formula) multivitamin (Daily Multi-Vitamin 1 tab PO DAILY 11/27/22 02/13/23 Unknown tablet) magnesium oxide See Rx Instructions PO .COMPLEX 12/02/22 02/13/23 Unknown apixaban 5 mg tablet (Eliquis) 5 mg PO BID #180 tabs 12/04/22 02/13/23 02/12/23 5 clopidogrel 75 mg tablet 75 mg PO QAM #90 tabs 12/04/22 02/13/23 01/27/23 lorazepam 0.5 mg tablet (Ativan) 0.5 mg PO BID PRN anxiety #60 tabs 12/04/22 02/03/23 Unknown allopurinol 300 mg tablet 300 mg PO DAILY 02/13/23 02/13/23 Unknown prochlorperazine maleate 10 mg 10 mg PO Q6 PRN Nausea 02/13/23 02/13/23 02/13/23 tablet 10 Active Medications Generic Name Dose Route Start Last Admin Trade Name Freq PRN Reason Stop Dose Admin Allopurinol 300 mg 02/14/23 09:00 02/15/23 10:10 Allopurinol 300 Mg Tab PO 03/16/23 08:59 Not Given DAILY CAMMIE Atorvastatin Calcium 20 mg 02/13/23 21:00 02/14/23 22:58 Atorvastatin 20 Mg Tab PO 03/15/23 20:59 Not Given HS [facility] Calcium/Vitamin D 1 tab 02/13/23 21:00 02/14/23 22:58 Calcium 600mg + Vit D 400 Iu Tab PO 03/15/23 20:59 Not Given BID CAMMIE Cyanocobalamin 1,000 mcg 02/14/23 09:00 02/14/23 08:06 Cyanocobalamin (B-12) 500 Mcg Tablet PO 03/16/23 08:59 1,000 mcg DAILY CAMMIE Administration Folic Acid 400 mcg 02/13/23 21:00 02/14/23 22:58 Folic Acid 400 Mcg Tab PO 03/15/23 20:59 Not Given QPM [facility] Heparin Sodium/Dextrose 25,000 units in 500 mls @ 0 mls/hr 10/14/23 13:30 02/15/23 08:27 Heparin Sodium/Dextrose IV 03/16/23 13:29 0 units/hr .Q0M CAMMIE 0 mls/hr Titration Protocol 0 UNITS/HR Amiodarone HCl/Dextrose 360 mg in 200 mls @ 16.667 mls/hr 02/14/23 20:00 02/15/23 07:46 Nexterone / D5w IV 03/16/23 19:59 0.5 mg/min .Q12H CAMMIE 16.7 mls/hr Administration 0.5 MG/MIN Prochlorperazine 5 mg/ Syringe 5 mls @ 5 mls/min 02/14/23 19:36 02/15/23 10:04 IV 03/16/23 19:35 5 mls/min Q6H PRN Administration Nausea And Vomiting Pantoprazole Sodium 40 mg/ 10 mls @ 5 mls/min 02/15/23 09:00 02/15/23 07:47 Syringe IV 03/17/23 08:59 5 mls/min BID CAMMIE Administration Multivitamins/Minerals 1 tab 02/14/23 09:00 02/14/23 08:06 Cerovite Adv Formula Tab PO 03/16/23 08:59 1 tab DAILY CAMMIE Administration Pantoprazole Sodium 40 mg 02/14/23 09:00 02/14/23 08:06 Pantoprazole 40 Mg Tab PO 03/16/23 08:59 40 mg QAM CAMMIE Administration Paroxetine HCl 10 mg 02/14/23 12:30 02/14/23 13:35 Paroxetine Hcl 10 Mg Tab PO 03/16/23 12:29 10 mg DAILY@1230 CAMMIE Administration Polyethylene Glycol 17 gm 02/14/23 21:00 02/15/23 10:10 Polyethylene (Miralax) 17 Gm Pack PO 03/16/23 20:59 Not Given BID CAMMIE Vitamin D 1,000 units 02/13/23 21:00 02/14/23 22:58 Cholecalciferol 1,000 Units 25 Mcg Tab PO 03/15/23 20:59 Not Given QPM CAMMIE Past Medical History Medical History Anemia Anxiety Benign essential hypertension Chronic interstitial cystitis Chronic reflux esophagitis Depression Endometrial cancer GERD (gastroesophageal reflux disease) History of DVT of lower extremity left leg History of endometrial cancer Hx of basal cell carcinoma Hyperlipidemia Hyperlipidemia Hypertension Nausea and vomiting after administration of anesthetic agent Osteopenia Seasonal allergies 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 still inplace. will bring card for current port DOS. Hx of basal cell carcinoma excision Hx of tonsillectomy Port-A-Cath in place (07/02/22) Insertion of Right Internal Jugular Access Port with Fluoroscopy(Right) - Martin Clark, DO, FACS Social History Smoking Status: Never smoker Smoking cigarettes per day: 10 or less Do You Dip or Chew Tobacco: No Hx Alcohol Use: No Alcohol type: wine alcohol intake frequency: a few times a month Hx Substance Use: No substance use type: does not use Physical Exam Vital Signs Last Vital Signs Temp 36.6 C 02/15/23 08:59 Pulse 131 H 02/15/23 08:59 Resp 20 02/15/23 08:59 BP 123/94 02/15/23 08:59 Pulse Ox 96 02/15/23 08:59 O2 Del Method Room Air 02/15/23 08:59 Testing Laboratory Results 02/15/23 07:16 02/15/23 07:16 PT 11.2 Seconds (9.0-12.0) 02/14/23 05:31 INR 1.0 (0.9-1.1) 02/14/23 05:31 APTT 83.8 Seconds (21.0-31.0) H* 02/15/23 07:16 Urine Color Dark Yellow 02/15/23 00:33 Urine Appearance Turbid (Clear) A 02/15/23 00:33 Urine pH 5.0 (4.5-7.5) 02/15/23 00:33 Ur Specific [place] 1.020 (1.000-1.030) 02/15/23 00: Urine Protein 1+ (Negative) H 02/15/23 00:33 Urine Glucose (UA) Negative (Negative) 02/15/23 00: Urine Ketones Negative (Negative) 02/15/23: Urine Nitrite Negative (Negative) 02/15/23 00: Ur Leukocyte Esterase 1+ (Negative) H 02/15/23 00:33 Urine WBC (Auto) 10-30 /hpf (0-5) H 02/15/23 00:33 Urine RBC (Auto) >30 /hpf (0-4) H 02/15/23 00: U Hyaline Cast (Auto) 1-5 /lpf (0-5) 02/15/23 00: U Epithel Cells (Auto) >30 /lpf (0-5) H 02/15/23 00:33 Urine Bacteria (Auto) Negative (Negative) 02/15/23 00:33
[2023-02-15] MEDS ORDERED: METOPROLOL TARTRATE 1 MG/ML VIAL IV STA (12:07)
--- NOTE | 2023-02-15 12:11 | Cardiology Consultation ---
Date of Consultation February 15, 2023 Assessment & Plan (1) Atrial flutter with rapid ventricular response: Plan 1. Atrial flutter: She developed atrial flutter shortly after presentation this admission and has remained in 2-1 atrial flutter since. Initially beta-blockade was not helpful for rate control, addition of amiodarone did slow heart rate somewhat but she has remained in atrial flutter with 2-1 AV conduction. I am going to try slowing the rate further with beta-blockade which sometimes works in combination with amiodarone, however can lead to significant bradycardia or hypotension. If this does not work or she does not tolerate this therapy then I think we should convert the rhythm. I discussed this with her and her family, they are agreeable and I will tentatively schedule her for cardioversion tomorrow morning in case this does not work to control the rhythm. The cause of the atrial arrhythmia is not clear, she had frequent premature beats on presentation and may have had prior episodes of atrial fibrillation or flutter that she was unaware but this could be a new rhythm. Fortunately she was properly anticoagulated for different reason so that is not an issue. It is possible that the arrhythmia is triggered by pericardial disease from her [facility] emergency department er, I would like to get an echocardiogram to see if there are pericardial issues including a pericardial effusion. I think she should proceed with her ureteral surgery today as she is hemodynamically stable. History of Present Illness Reason for Consultation: Atrial flutter with rapid heart rate Attending Physician: Eduardo Blanco MD History of Present Illness This is a 72-year-old woman who has uterine cancer with metastases. She has had difficulty with abdominal ascites and has had paracentesis. She also has pleural effusions with a Pleurx catheter. She was admitted with acute kidney injury due to poor fluid intake I believe. She also had urinary obstruction felt to be due to her cancer. On presentation her rhythm was sinus with frequent premature atrial beats, however at around 1650 on February 13, 2023 she developed a rapid heart rate which appears to be atrial flutter with 2-1 AV conduction. That rhythm remained, she was started on amiodarone with a bolus and load on the afternoon of February 14, 2023. She had been on Eliquis for prior DVT, this was held shortly after admission but she appears to have had it on the morning of February 13, 2023. Heparin was started on February 14, 2023, within 24 hours of her last Eliquis dose so she seems to have been properly anticoagulated for the atrial arrhythmia. There is not appear to be a history of atrial arrhythmias and she does not have much in the way of symptoms while in atrial flutter. The last echocardiogram that I see was November 08, 2022 and this showed normal left ventricular size and function with normal right ventricular systolic pressure and no significant valvular disease. She is currently maintained on amiodarone 0.5 mg/min (the bolus and higher infusion rate having been completed). She had been given intravenous metoprolol however prior to the amiodarone that was not helpful in controlling the heart rate. She has not been hypotensive. At the time my evaluation she is feeling weak but does not have an awareness of her cardiac rhythm, does not seem to have felt differently when she went into it following her admission here. Her family was present at the bedside and is not aware that she has had any symptoms to suggest prior arrhythmias. Allergies Allergy/AdvReac Type Severity Reaction Status Date / Time adhesive tape Allergy Intermediate localized Verified 02/03/23 11:03 skin reddness/irritation latex Allergy Intermediate localized Verified 02/03/23 11:03 skin reddness/irritation aspirin Allergy Mild facial Verified 02/03/23 11:03 flushing ciprofloxacin Allergy Unknown Rash Verified 02/03/23 11:03 Home Medications Medication Instructions Recorded Confirmed Type cholecalciferol (vitamin D3) 25 1,000 units PO QPM 11/09/18 02/13/23 History mcg (1,000 unit) capsule paroxetine HCl 10 mg tablet (Paxil) 10 mg PO QDB #90 tabs 04/08/22 02/13/23 Rx atorvastatin 20 mg tablet 20 mg PO HS #90 tabs 04/29/22 02/13/23 Rx cyanocobalamin (vitamin B-12) 1,000 mcg PO DAILY 06/26/22 02/13/23 History 1,000 mcg tablet (Vitamin B-12) folic acid 400 mcg tablet 0.4 mg PO QPM 06/26/22 02/13/23 History loratadine 10 mg tablet (Claritin) 10 mg PO UD PRN Allergy Symptoms 06/26/22 02/13/23 History omeprazole 20 mg capsule,delayed 20 mg PO QAM #90 caps 09/18/22 02/13/23 Rx release Bifidobacterium infantis 4 mg 4 mg PO DAILY 11/07/22 02/13/23 History capsule (Align) acetaminophen 650 mg 650 mg PO Q8H PRN Pain 11/07/22 02/13/23 History tablet,extended release (Tylenol Arthritis Pain) fluticasone propionate 50 2 spray intranasal HS 11/07/22 02/13/23 History mcg/actuation nasal spray,suspension calcium carbonate 600 mg-vitamin 1 tab PO BID 11/27/22 02/13/23 History D3 10 mcg (400 unit) tablet (Calcium 600 + D(3)) [id number] 5 mg-zeaxanth 1 cap PO DAILY 11/27/22 02/13/23 History 1 mg-bilberry 7.5 mg-herbal capsule (Macular Health Formula) multivitamin (Daily Multi-Vitamin 1 tab PO DAILY 11/27/22 02/13/23 History tablet) magnesium oxide See Rx Instructions PO .COMPLEX 12/02/22 02/13/23 History apixaban 5 mg tablet (Eliquis) 5 mg PO BID #180 tabs 12/04/22 02/13/23 Rx clopidogrel 75 mg tablet 75 mg PO QAM #90 tabs 12/04/22 02/13/23 Rx lorazepam 0.5 mg tablet (Ativan) 0.5 mg PO BID PRN anxiety #60 tabs 12/04/22 02/03/23 Rx allopurinol 300 mg tablet 300 mg PO DAILY 02/13/23 02/13/23 History prochlorperazine maleate 10 mg 10 mg PO Q6 PRN Nausea 02/13/23 02/13/23 History tablet Patient History Medical History Anemia Anxiety Benign essential hypertension Chronic interstitial cystitis Chronic reflux esophagitis Depression Endometrial cancer GERD (gastroesophageal reflux disease) History of DVT of lower extremity left leg History of endometrial cancer Hx of basal cell carcinoma Hyperlipidemia Hyperlipidemia Hypertension Nausea and vomiting after administration of anesthetic agent Osteopenia Seasonal allergies 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 still inplace. will bring card for current port DOS. Hx of basal cell carcinoma excision Hx of tonsillectomy Port-A-Cath in place (07/02/22) Insertion of Right Internal Jugular Access Port with Fluoroscopy(Right) - Martin Clark, DO, FACS Family History Mother Hypertension Malignant neoplasm of urinary bladder Denies family history of Ovarian cancer Prostate cancer Myocardial infarction Breast cancer Colorectal cancer Social History Smoking Status: Never smoker Tobacco Type: Cigarettes Age Started Using Tobacco: 20; Age Quit Using Tobacco: 22; packs per day: 0.5; Cigarettes Per Day: 10 or less; Second Hand Exposure: No; Do You Dip or Chew Tobacco: No; Hx Alcohol Use: No Hx Substance Use: No Preferred Language: Romanian Communication Ability: Effective Visual Impairment: No Limitations Hearing Ability: Normal Screener Operator Required: No Beliefs That Will Affect Care: None marital status: Current Living Situation: Family Current Living Situation Comment: Lives with daughter Gardenia current occupational status: retired How many Children do You have: 2 Other Information That Helps Us Care for You: No Feels Safe at Home: Yes Safety Concerns: Feels Safe At This Time Childhood Exposure to Second-Hand Smoke: Yes Diet: regular caffeine: Yes during the past year weight has: remained stable Dental Care, Regularly: Yes Physical Activity Frequency: 3-4 Times per Week Seatbelt Use: always Sunscreen Use: Yes Assistive Devices: Bedside Commode, Glasses, Hospital Bed, Walker and Wheelchair Review of Systems Review of Systems: All systems reviewed & are unremarkable except as noted in HPI & below Physical Exam Physical Exam: Constitutional: Alert, cooperative and in no distress. She appears tired. HEENT: Unremarkable Neck: No jugular venous distention, carotid pulses are rapid but normal and equal bilaterally without bruits. Pulmonary: Clear to auscultation bilaterally with decreased breath sounds especially on the left. Cardiac: Regular rapid rhythm with no murmur, gallop or rub. Abdomen: Soft, nontender with normal bowel sounds. Extremities: +2 bilateral pretibial edema. Distal pulses intact. Neurologic: No focal findings. Gait was not tested. Skin: No rash, ecchymoses or petechiae. Results & Data Vital Signs (Past 12 Hours) Vital Signs Temp Pulse Pulse Resp BP Pulse Ox O2 Del Method 02/15/23 08:00 127 H 02/15/23 08:00 Room Air 02/15/23 08:59 36.6 C 131 H 20 123/94 96 Room Air 02/15/23 02:51 36.4 C L 127 H 20 118/85 92 Room Air Laboratory Results Coagulation 02/14/23 02/15/23 Range/Units 22:37 07:16 APTT 88.9 H* 83.8 H* (21.0-31.0) Seconds CBC 02/15/23 Range/Units 07:16 WBC 12.26 H (4.8-10.8) K/ul RBC 3.70 L (4.20-5.40) M/uL Hgb 11.3 L (12.0-16.0) g/dl Hct 33.5 L (37.0-47.0) % Plt Count 263 (130-400) K/uL Neut # (Auto) 10.78 H (1.40-6.50) K/uL Lymph # (Auto) 0.61 L (1.20-3.40) K/uL Moffat # (Auto) 0.73 H (0.11-0.59) K/uL Eos # (Auto) 0.01 (0.00-0.50) K/uL Baso # (Auto) 0.01 (0.00-0.20) K/uL Comprehensive Metabolic Panel 02/15/23 Range/Units 07:16 Sodium 128 L (136-145) mmol/L Potassium 4.4 (3.5-5.1) mmol/L Chloride 93 L (98-107) mmol/L Carbon Dioxide 21 (21-32) mmol/L BUN 66 H (6-23) mg/dl Creatinine 3.54 H D (0.6-1.2) mg/dl Glucose 123 H (70-99(Fasting)) mg/dl Calcium 8.2 L (8.6-10.3) mg/dl Intake and Output 10/14/23 10/15/23 10/15/23 22:59 06:59 14:59 Intake Total 1393.9 / 2793.833 316.6 / 2793.833 336.053 / 336.053 Output Total 20 / 75 55 / 75 Balance 1373.9 / 2718.833 261.6 / 2718.833 336.053 / 336.053 Intake: IV 1343.9 / 2423.833 116.6 / 2423.833 336.053 / 336.053 Amiodarone / D5w 150 mg In 100 100 / 100 ml @ 600 mls/hr IV NOW STA Rx#: [id number] Amiodarone / D5w 360 mg In 200 200 / 200 193.72 / 193.72 ml @ 0.5 MG/MIN 16.667 mls/hr IV .Q12H CAMMIE Rx#:[id number] Heparin Sodium/Dextrose 25,000 53.9 / 170.5 116.6 / 170.5 142.333 / 142.333 units In 500 ml @ 1,000 UNITS/ HR 20 mls/hr IV .Q24H CAMMIE Rx#: [id number] Plasma-Lyte A 1,000 ml @ 100 990 / 1953.333 mls/hr IV .Q10H [facility]MIE Rx#: [id number] Oral 50 / 370 200 / 370 Output: Urine / 75 55 / 75 Other: # Unmeasured Voids 1 Weight 74.389 kg 74.4 kg 74.4 kg Weight Measurement Method Built in [facility] Patient Weight 02/16/23 06:59 Weight 74.4 kg Diagnostic Findings Telemetry: Sinus rhythm with frequent premature atrial beats on presentation, conversion to atrial flutter at around 1651 on February 13, 2023 and she has remained in 2-1 AV conduction since. Heart rate has slowed somewhat with amiodarone however remains around 130 bpm. PG Care Time/CCT Total # of Minutes Spent Total Time Spent with Patient: Total time spent is greater than 50% in coordination of care (as documented) at patient's floor/unit and/or counseling patient: Coding Level of Care Code 08394 INT INP/OBS CARE 3/75MIN Diagnoses Atrial flutter with rapid ventricular response I48.92
[2023-02-15] MEDS ORDERED: ATROPINE SULFATE 0.1 MG/ML 10ML SYR IV PRN (12:43)
[2023-02-15] MEDS ORDERED: ePHEDrine sulfate 50 MG/ML AMP IV PRN (12:43)
[2023-02-15] MEDS ORDERED: fentaNYL citrate PF 100 MCG/2 ML VIAL ONE (12:57)
[2023-02-15] MEDS ORDERED: MIDAZOLAM HCL 1 MG/ML 2ML VIAL ONE (12:57)
[2023-02-15] MEDS ORDERED: PHENYLEPHRINE HCL 10 MG/ML VIAL ONE (12:59)
[2023-02-15] MEDS ORDERED: LIDOCAINE 2% 2 ML VIAL/AMP(20MG/ML) INFIL ONE ×2 (12:59)
[2023-02-15] MEDS ORDERED: PROPOFOL IV EMULSION 10 MG/ML 20 ML VIAL IV ONE (12:59)
[2023-02-15] MEDS ORDERED: DEXAMETHASONE SOD INJ 4 MG/ML VIAL ONE (12:59)
[2023-02-15] MEDS ORDERED: ONDANSETRON INJ 2 MG/ML 2 ML VIAL ONE (12:59)
[2023-02-15] MEDS ORDERED: FAMOTIDINE/PF 20 MG/2 ML VIAL IV ONE (13:01)
[2023-02-15] MEDS ORDERED: ACETAMINOPHEN 1000 MG/100 ML IV IV ONE (13:02)
[2023-02-15] MEDS ORDERED: DIATRIZOATE MEGLUMINE 30% 100ML VIAL INSTIL ONE (13:07)
[2023-02-15] MEDS ORDERED: ceFAZolin 330 MG/ML 1 GM VIAL ONE (13:16)
--- NOTE | 2023-02-15 13:35 | Anesthesiology Progress Note ---
Date of Service February 15, 2023 Anesthesia Post Procedure Vital Signs Vital Signs: Temp Pulse Pulse Resp BP BP Pulse Ox 02/15/23 12:45 36.4 C L 133 H 20 116/82 96 02/15/23 08:00 127 H 02/15/23 08:00 02/15/23 08:59 36.6 C 131 H 20 123/94 96 02/15/23 02:51 36.4 C L 127 H 20 118/85 92 02/14/23 22:45 36.3 C L 130 H 20 131/91 94 02/14/23 19:40 02/14/23 19:24 36.4 C L 128 H 17 136/95 93 02/14/23 15:32 36.6 C 137 H 18 129/89 95 O2 Del Method 02/15/23 12:45 Room Air 02/15/23 08:00 02/15/23 08:00 Room Air 02/15/23 08:59 Room Air 02/15/23 02:51 Room Air 02/14/23 22:45 Room Air 02/14/23 19:40 Room Air 02/14/23 19:24 Room Air 02/14/23 15:32 Room Air Transfer of Care Handoff Completed per policy Notes Mental Status: alert / awake / arousable and participated in evaluation Patient Amnestic to Procedure: Yes Nausea / Vomiting: adequately controlled Pain: adequately controlled Airway Patency, RR, SpO2: stable & adequate BP & HR: stable & adequate Hydration State: stable & adequate Anesthetic Complications: no major complications apparent
[2023-02-15] MEDS ORDERED: ceFAZolin 2000MG 2,000 MG/15 ML SYR IV ONE ×2 (13:45→14:00)
[2023-02-15] MEDS ORDERED: LIDOCAINE 2% LOCAL 20 ML VIAL INFIL ONE (14:04)
--- NOTE | 2023-02-15 14:38 | Operative Report ---
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 The majority of the trigone and area around the UO bilaterally was invaded with tumor including the bladder neck. Tumor appeared to be friable and had areas what appeared to be necrotic and calcified. Total resected area was approximately 6.7 cm. Bilateral obstruction of the ureters with likely tumor invasion at the trigone region. Significant narrowing and likely external compression of the distal ureter bilaterally with the right worse than the left. Severe hydroureter bilaterally with hydronephrosis. Narrowing/stricture of the distal/mid ureter bilaterally with again right worse than left. Specimens Resected Bladder lesions trigone/bladder neck/posterior wall Drains 6 x 26 double-J ureteral stents bilaterally 18 Thai silicone catheter Anesthesia Type MAC Complications none Disposition Disposition: Recovery Room Indications Patient with obstructive issues and known history of gynecologic cancer with considerable abdominal metastasis sick disease and concern for obstruction. Development of acute renal failure with worsening bilateral hydronephrosis. Risks and benefits discussed at length. Description of Procedure Patient was consented and brought back to the operating room. Patient was placed under anesthesia in the supine position and moved to the dorsal lithotomy position. Patient was prepped and draped in the regular sterile fashion. A time out was completed. A 30degree Cystoscope was placed into the bladder and the entire bladder was examined. Immediately upon inserting in the bladder a large necrotic appearing mass with calcifications and significant obstruction issues were noted at the bladder neck and trigone region. Both UOs appeared to be involved with the tumor. Appeared to be likely invasive tumor from the gynecologic cancer into the bladder. Did not appear to be tumor from the bladder however limited ability to determine definitively. Tumor appeared to be fibrotic and easily bleeding. Had areas of necrotic tissue versus fibrinous exudate versus calcified areas. Narrowing of bladder neck. Fixed pelvis on examination. The trigone was poorly visualized due to the large bulkiness of the lesion withi n the trigone. The lesions and areas of concern were identified and area/size was assessed. The resection scope with the fine bipolar loop was selected. The entire lesion was assessed. The lesion was resected. The bladder neck was resected first in order to allow better access to the trigone region. Once the bladder neck was resected the trigone region was then resected starting in midline and moving out laterally. During the resection on the left side a area that appeared to be the ureter was able to be unroofed with removal of the tumor. It did appear that there was urine draining from this area. It appeared to be largely dilated. Care was taken to avoid excess cautery around this area. Resection was taken more laterally to expose and remove remaining bulky tumor around the area. Resection was then taken along the right side with resection of the tumor back down to the area of the lateral wall and posterior wall. During the resection he had again another area that appeared to be the ureter was unroofed though this area was found to be less dilated/hydronephrotic than the left side. Again cautery was limited in this area. The resected tissue was removed and sent for analysis. The resection bed and edges of the resection were fulgurated and the entire area inspected. All bleeding was controlled. \ With the majority of the tumor debulked and tissue removed a cystoscope was replaced and a 5 Thai open-ended catheter was utilized to attempt retrograde pyelograms bilaterally. On the left side the ureter was found to be severely hydronephrotic with small area of narrowing in the distal ureter likely stricture versus external compression. This had to be dilated. A wire was then able to be advanced and the catheter was able to be advanced to the renal pelvis. The kidney was found to be severely hydronephrotic. The catheter was removed and the wire was maintained in place. A 6 Thai double-J ureteral stent was then placed and allowed to drain. Good drainage had been achieved. Attention was then taken to the right side. Again a 5 Thai open-ended catheter was utilized to cannulate the lumen of what appeared to be the ureter. Contrast was injected however the right ureter from the mid ureter to the distal ureter and the UO region was found to be severely compressed likely by external compression. There was area of stricture or narrowing in the mid ureter as well. This was difficult to transverse with the catheter. A wire was able to be placed and eventually able to be advanced into the renal pelvis. With considerable manipulation the catheter was able to be advanced as well and a retrograde pyelogram was completed. Severe hydronephrosis was once again appreciated. The area of narrowing in the mid ureter was dilated to allow better access. The wire was maintained in place. A 6 Thai by 26 double-J ureteral stent was then deployed in the ureter. The right side had considerably more difficulty and advancing the stent largely due to what appeared to be external compression of the entire distal segment. The stent was able to be advanced into the renal pelvis and set to drainage. At this point the entire resection bed was inspected. Additional small amounts of tissue were resected. The base and edges were once again fulgurated with all bleeding controlled. No major bleeding was noted around the UO was and limited cautery was used around them. The stents appear to be draining without major issue. The entire rest of the bladder was inspected. A small area of irritation was noted on the posterior wall but no other areas of tumor lesion mass or other abnormalities. The bladder was inspected a final time. The bladder was emptied. The scope was removed. A 18 Thai silicone catheter was then placed and set to drainage. The patient was cleaned, aroused from anesthesia, and transferred to the pacu in stable condition having tolerated the procedure well with no complications. I was present and participated in all aspects of the procedure. The patient will be monitored in the PACU until transferred. We will need to await the pathology results. Patient will be monitored inpatient. We will await the improvement of the patient's renal function. We will plan to continue to monitor. Likely maintain stents possibly changing every 3 months if this improves outflow.. Will likely maintain catheter for approximately 1 week in order to allow full healing. I attest to the content of the Intraoperative Record and any orders documented therein. Any exceptions are noted below.
[2023-02-15] MEDS: fentaNYL citrate PF 100 MCG/2 ML VIAL IV PRN ×2 (15:04→15:09)
--- NOTE | 2023-02-15 15:14 | Anesthesiology Progress Note ---
Date of Service February 15, 2023 Anesthesia Post Procedure Vital Signs Vital Signs: Temp Pulse Pulse Resp BP BP Pulse Ox 02/15/23 15:10 122 H 10 L 124/101 H 93 02/15/23 15:00 122 H 12 117/88 93 02/15/23 14:50 121 H 15 123/94 98 02/15/23 14:41 36.7 C 121 H 16 129/97 95 02/15/23 12:45 36.4 C L 133 H 20 116/82 96 02/15/23 08:00 127 H 02/15/23 08:00 02/15/23 08:59 36.6 C 131 H 20 123/94 96 02/15/23 02:51 36.4 C L 127 H 20 118/85 92 02/14/23 22:45 36.3 C L 130 H 20 131/91 94 02/14/23 19:40 02/14/23 19:24 36.4 C L 128 H 17 136/95 93 02/14/23 15:32 36.6 C 137 H 18 129/89 95 O2 Del Method O2 Flow Rate 02/15/23 15:10 Nasal Cannula 2 02/15/23 15:00 Nasal Cannula 2 02/15/23 14:50 Oxymask 4 02/15/23 14:41 Oxymask 6 02/15/23 12:45 Room Air 02/15/23 08:00 02/15/23 08:00 Room Air 02/15/23 08:59 Room Air 02/15/23 02:51 Room Air 02/14/23 22:45 Room Air 02/14/23 19:40 Room Air 02/14/23 19:24 Room Air 02/14/23 15:32 Room Air Pain Intensity Lower Abdomen: Pain Intensity: 5 Transfer of Care Handoff Completed per policy Notes Mental Status: alert / awake / arousable and participated in evaluation Patient Amnestic to Procedure: Yes Nausea / Vomiting: adequately controlled Pain: adequately controlled Airway Patency, RR, SpO2: stable & adequate BP & HR: stable & adequate Hydration State: stable & adequate Anesthetic Complications: no major complications apparent
[2023-02-15] MEDS: PARoxetine HCL 10 MG TAB PO SCH (15:51)
[2023-02-15] MEDS ORDERED: LIDOCAINE 2% LOCAL 50 ML VIAL ONE (16:33)
--- NOTE | 2023-02-15 17:39 | Procedure Note ---
Procedure Note Date of Service February 15, 2023 Note PREOPERATIVE DIAGNOSIS: Recurrent left pleural effusion. POSTOPERATIVE DIAGNOSIS: Recurrent left pleural effusion. PROCEDURE PERFORMED: Left PleurX catheter placement. ANESTHESIA: Local 1% Lidocaine without Epinephrine COMPLICATIONS: None. INDICATION FOR PROCEDURE: Recurrent left-sided pleural effusion DESCRIPTION OF PROCEDURE: The patient was placed in a semirecumbent position. I evaluated the left pleura with the ultrasound and located an adequate spot above the diaphragm. The left chest and upper abdomen were prepped and draped in the usual sterile fashion. Lidocaine 1% was used to infiltrate two areas; one in the left upper quadrant where the tube would exit and the other along the anterior axillary line one intercostal space below. A small counterincision was made in the left upper quadrant area. Through the anterior axillary line area, the pleural space was accessed by Seldinger technique. The counterincision was made around the guidewire and then the PleurX catheter was tunneled from the right upper quadrant small incision to the one overlying the ribs. A sheath introducer was then passed over the wire and then the PleurX catheter was placed through the sheath introducer. There was good return of fluid. 950 ml of serosanguineous fluid was withdrawn slowly as the small counterincision was closed with Monocryl stitch. The catheter was capped off, and sterile dressings were applied. The patient tolerated the procedure well without any complications. Chest Xray to follow. Patient's blood pressure was monitored all throughout the procedure. Bedside Ultrasound: Lung: Left:-Moderate to large left-sided pleural effusion with compression atelectasis Right:-Small right-sided pleural effusion Heart: Good EF Abdomen: Abdominal ascites was appreciated especially subdiaphragmatic Complications: None Blood Loss: < 3cc Coding CPT Codes Pulmonary/Thoracic - Pulmonary and Thoracic: 65778 Insert pleural cathereter w/cuff ([id number]) Pulmonary/Thoracic - Pulmonary and Thoracic: 69052 Pleural drainage w/o imaging ([id number]) Pulmonary/Thoracic - Pulmonary and Thoracic: 72136 US, Chest, real time with imaging documentation ([id number]) [facility] [place] Codes (Charges) Pulmonary/Thoracic Procedure 1: Pulmonary and Thoracic: 01512 Insert pleural cathereter w/cuff Procedure 2: Pulmonary and Thoracic: 33332 Pleural drainage w/o imaging Procedure 3: Pulmonary and Thoracic: 39880 US, Chest, real time with imaging documentation
[2023-02-15] MEDS ORDERED: ACETAMINOPHEN 1,000 MG/100 ML VIAL IV PRN (18:24)
--- NOTE | 2023-02-15 18:32 | XRay Report ---
XR chest 1V portable CLINICAL HISTORY: post plurex placement TECHNIQUE: Single frontal radiograph of the chest was obtained. Comparison: Comparison is made to chest radiograph 02/13/2023 FINDINGS: A port catheter is seen. Right chest tube is seen and there is interval placement of left chest tube. Calcified aortic knob is seen. Dependent airspace opacities are seen, right greater than left. Small right and trace left pleural effusions are seen. No pneumothorax. IMPRESSION: Interval placement of a left chest tube with decrease in size of left pleural effusion and no atelect asis. Right chest tube and effusion are unchanged. ACT 112: Negative or not required by law. Electronically signed by: Ronaldo Briscoe M.D. 02/15/2023 6:30 PM
[2023-02-15] MEDS: ACETAMINOPHEN 1,000 MG/100 ML VIAL IV PRN (18:33)
[2023-02-15] MEDS ORDERED: LACTATED RINGER'S 500 ML IV ONE (18:57)
--- NOTE | 2023-02-15 18:59 | Hospitalist Progress Note ---
Date of Service February 15, 2023 Assessment & Plan (1) KISHA (acute kidney injury): Plan: Primarily due to obstruction. Cystoscopy today with evidence of invasion of bladder by her uterine cancer. b/l ureters with hydronephrosis due to the above. s/p ureteral stent placement b/l by Dr Padilla. May have had a component of pre-renal hypoperfusion from recent nausea/vomiting at home leading to poor intake. Tuttle now in place. Will provide LR at 80cc/hr and repeat BMP in am. (2) Atrial flutter with rapid ventricular response: Plan: EKGs and tele strips c/w a.flutter, 2:[address] Worthington's consultation. continues on amiodarone infusion with the hopes she converts to NSR. resume heparin late tonight. If BPs will allow provide beta blockade. (3) Malignant pleural effusion: Plan: b/l already has pleurX on right Dr Vegas placed L-sided pleurX today fluid studies from left pleural effusion c/w exudative effusion pH is low - follow culture (4) Hydronephrosis: Plan: b/l was severe on right chronically the left-sided hydro has worsened over the last few months see #1 above (5) Uterine cancer: Plan: stage 4, with carcinomatosis and distal mets was to have chemotherapy the AM of admission at [facility] but was deferred and she was sent to ER due to her illness would benefit from a CT abd/pelvis to assess tumor burden, see if there is compromise to her GI tract (recent constipation, not passing flatus, distension, etc) consider doing this tomorrow will reach out to Dr Campos tomorrow am if CT is performed and it shows significant pelvic tumor burden -- candidate for palliative radiation? (6) History of CVA (cerebrovascular accident): Plan: noted plavix is on hold lipitor is on hold (7) Nausea: Plan: exact etiology uncertain due to intra-abdominal metastatic disease? upper GI in origin? due to KISHA? other? (8) History of deep venous thrombosis (DVT) of distal vein of left lower extremity: Plan: LLE in early 2022 has been on Eliquis since then Eliquis on hold due to procedures Heparin drip in tho - can resume late tonight (9) Benign essential hypertension: Plan: not on meds for such at home (10) Carcinomatosis: Plan: all prior imaging with extensive carcinomatosis see discussions above (11) Hyponatremia: Plan: likely 2nd to KISHA should improve with hydration & time BMP am Plan care d/w cardiology care d/w urology daughter updated at bedside may need palliative care consultation depending on clinical course Admission and Anticipated Discharge Date Admission Date: February 13, 2023 Subjective tele overnight - ongoing a flutter, rates now 110's to 120's this am creatinine had risen again to 3.5 Dr Padilla from urology saw patient and her daughter decision was made to take Mrs Puckett to the OR cystoscopy was done and there was invasion of the bladder by her uterine cancer causing her hydronephrosis she underwent TURBT and b/l ureteral stent placement following the above she then underwent left-sided pleurX catheter placement by Dr Vegas nearly 1000cc of fluid was removed no pneumothorax post-pleurX placement I saw Mrs Puckett following the above procedures she was resting in bed daughter was at bedside Mrs Puckett complained of pain in her abdomen she stated she was very tired she had received IV tylenol but was still uncomfortable her daughter asked about her renal failure and what we can expect over the next day or two (urine output, etc) Review of Systems Review of Systems: gen - weak, fatigued cv - pain over left chest wall pulm - no dyspnea GI - abdominal pain present; ongoing constipation; ongoing nausea - tuttle now in place; minimal UOP since her cystoscopy Physical Exam Physical Exam: gen - pale, weak, fatigued in appearance; c/o pain mouth - MM dry neck - no JVD heart - tachy, s1 s2, no murmur lungs - improved airation left base; CTA right, no increased work of breathing abd - distended, BS+, NT, no HSM ext - pulses 2+ b/l, 1+ edema b/l psych - a/o x 3 chest - right upper chest - port clean Results & Data Results & Data Vital Signs (Past 12 Hours) Vital Signs Temp Pulse Pulse Resp BP BP Pulse Ox 02/15/23 18:29 111 H 102/70 02/15/23 17:24 109 H 124/84 02/15/23 17:10 118 H 107/64 02/15/23 16:03 36.5 C 125 H 18 137/94 97 02/15/23 15:50 36.4 C L 125 H 18 124/99 95 02/15/23 15:30 126 H 14 116/83 93 02/15/23 15:10 122 H 10 L 124/101 H 93 02/15/23 15:00 122 H 12 117/88 93 02/15/23 15:20 37.1 C 124 H 12 129/90 94 02/15/23 14:50 121 H 15 123/94 98 02/15/23 14:41 36.7 C 121 H 16 129/97 95 02/15/23 12:45 36.4 C L 133 H 20 116/82 96 02/15/23 08:00 127 H 02/15/23 08:00 02/15/23 08:59 36.6 C 131 H 20 123/94 96 O2 Del Method O2 Flow Rate 02/15/23 18:29 Room Air 02/15/23 17:24 02/15/23 17:10 02/15/23 16:03 Nasal Cannula 3 02/15/23 15:50 Nasal Cannula 3 02/15/23 15:30 Nasal Cannula 3 02/15/23 15:10 Nasal Cannula 3 02/15/23 15:00 Nasal Cannula 2 02/15/23 15:20 Nasal Cannula 3 02/15/23 14:50 Oxymask 4 02/15/23 14:41 Oxymask 6 02/15/23 12:45 Room Air 02/15/23 08:00 02/15/23 08:00 Room Air 02/15/23 08:59 Room Air Laboratory Results Laboratory Results - last 24 hr 02/14/23 02/15/23 02/15/23 22:37 00:33 00:33 WBC RBC Hgb Hct MCV MCH MCHC RDW Std Deviation RDW Coeff of Elie Plt Count MPV Immature Gran % (Auto) Neut % (Auto) Lymph % (Auto) [place] % (Auto) Eos % (Auto) Baso % (Auto) Neut # (Auto) Lymph # (Auto) [place] # (Auto) Eos # (Auto) Baso # (Auto) Immature Gran # (Auto) APTT 88.9 H* PTT Ratio 3.2 Sodium Potassium Chloride Carbon Dioxide Anion Gap BUN Creatinine Est Cr Clr Drug Dosing Est GFR ( Amer) Est GFR (Non-Af Amer) BUN/Creatinine Ratio Glucose Calcium Urine Color Urine Appearance Urine pH Ur Specific [place] Urine Protein Urine Glucose (UA) Urine Ketones Urine Blood Urine Nitrite Urine Bilirubin Urine Urobilinogen Ur Leukocyte Esterase Urine WBC (Auto) Urine RBC (Auto) U Hyaline Cast (Auto) U Epithel Cells (Auto) Urine Bacteria (Auto) Urine Yeast Urine Osmolality 457 L Ur Random Sodium 26 Fluid Neutrophils % Fluid Lymphocytes % Fluid Meso/Macro/[place] % Fluid Slide Review Fluid Comment Pleural Fluid Source Pleural Color Pleural Appearance Pleural pH Pleural WBC (Auto) Pleural RBC (Auto) Pleural Total Protein Pleural LDH Pleural Glucose 02/15/23 02/15/23 02/15/23 00:33 07:16 07:16 WBC 12.26 H RBC 3.70 L Hgb 11.3 L Hct 33.5 L MCV 90.5 MCH 30.5 MCHC 33.7 RDW Std Deviation 51.1 H RDW Coeff of Elie 15.5 H Plt Count 263 MPV 9.6 Immature Gran % (Auto) 1.0 Neut % (Auto) 87.8 Lymph % (Auto) 5.0 [place] % (Auto) 6.0 Eos % (Auto) 0.1 Baso % (Auto) 0.1 Neut # (Auto) 10.78 H Lymph # (Auto) 0.61 L [place] # (Auto) 0.73 H Eos # (Auto) 0.01 Baso # (Auto) 0.01 Immature Gran # (Auto) 0.12 APTT PTT Ratio Sodium 128 L Potassium 4.4 Chloride 93 L Carbon Dioxide 21 Anion Gap 14 H BUN 66 H Creatinine 3.54 H D Est Cr Clr Drug Dosing 13.9 Est GFR ( Amer) 14.1 Est GFR (Non-Af Amer) 12.2 BUN/Creatinine Ratio 18.6 Glucose 123 H Calcium 8.2 L Urine Color Dark Yellow Urine Appearance Turbid A Urine pH 5.0 Ur Specific [place] 1.020 Urine Protein 1+ H Urine Glucose (UA) Negative Urine Ketones Negative Urine Blood 3+ H Urine Nitrite Negative Urine Bilirubin Negative Urine Urobilinogen Negative Ur Leukocyte Esterase 1+ H Urine WBC (Auto) 10-30 H Urine RBC (Auto) >30 H U Hyaline Cast (Auto) 1-5 U Epithel Cells (Auto) >30 H Urine Bacteria (Auto) Negative Urine Yeast Not Reportable Urine Osmolality Ur Random Sodium Fluid Neutrophils % Fluid Lymphocytes % Fluid Mes[place]/Macro/[place] % Fluid Slide Review Fluid Comment Pleural Fluid Source Pleural Color Pleural Appearance Pleural pH Pleural WBC (Auto) Pleural RBC (Auto) Pleural Total Protein Pleural LDH Pleural Glucose 02/15/23 02/15/23 02/15/23 07:16 17:30 17:30 WBC RBC Hgb Hct MCV MCH MCHC RDW Std Deviation RDW Coeff of Elie Plt Count MPV Immature Gran % (Auto) Neut % (Auto) Lymph % (Auto) [place] % (Auto) Eos % (Auto) Baso % (Auto) Neut # (Auto) Lymph # (Auto) [place] # (Auto) Eos # (Auto) Baso # (Auto) Immature Gran # (Auto) APTT 83.8 H* PTT Ratio 3.0 Sodium Potassium Chloride Carbon Dioxide Anion Gap BUN Creatinine Est Cr Clr Drug Dosing Est GFR ( Amer) Est GFR (Non-Af Amer) BUN/Creatinine Ratio Glucose Calcium Urine Color Urine Appearance Urine pH Ur Specific [place] Urine Protein Urine Glucose (UA) Urine Ketones Urine Blood Urine Nitrite Urine Bilirubin Urine Urobilinogen Ur Leukocyte Esterase Urine WBC (Auto) Urine RBC (Auto) U Hyaline Cast (Auto) U Epithel Cells (Auto) Urine Bacteria (Auto) Urine Yeast Urine Osmolality Ur Random Sodium Fluid Neutrophils % 4 Fluid Lymphocytes % 7 Fluid Mes[place]/Macro/[place] % 89 Fluid Slide Review Pending Fluid Comment Pleural Fluid Source Left Lung Pleural Color [place] Pleural Appearance Cloudy Pleural pH 7.02 L Pleural WBC (Auto) 1199 Pleural RBC (Auto) 07069 Pleural Total Protein Pleural LDH Pleural Glucose 02/15/23 17:30 WBC RBC Hgb Hct MCV MCH MCHC RDW Std Deviation RDW Coeff of Elie Plt Count MPV Immature Gran % (Auto) Neut % (Auto) Lymph % (Auto) [place] % (Auto) Eos % (Auto) Baso % (Auto) Neut # (Auto) Lymph # (Auto) [place] # (Auto) Eos # (Auto) Baso # (Auto) Immature Gran # (Auto) APTT PTT Ratio Sodium Potassium Chloride Carbon Dioxide Anion Gap BUN Creatinine Est Cr Clr Drug Dosing Est GFR ( Amer) Est GFR (Non-Af Amer) BUN/Creatinine Ratio Glucose Calcium Urine Color Urine Appearance Urine pH Ur Specific [place] Urine Protein Urine Glucose (UA) Urine Ketones Urine Blood Urine Nitrite Urine Bilirubin Urine Urobilinogen Ur Leukocyte Esterase Urine WBC (Auto) Urine RBC (Auto) U Hyaline Cast (Auto) U Epithel Cells (Auto) Urine Bacteria (Auto) Urine Yeast Urine Osmolality Ur Random Sodium Fluid Neutrophils % Fluid Lymphocytes % Fluid [place]/Macro/[place] % Fluid Slide Review Fluid Comment Pleural Fluid Source Pleural Color Pleural Appearance Pleural pH Pleural WBC (Auto) Pleural RBC (Auto) Pleural Total Protein 3.0 Pleural LDH 1607 Pleural Glucose 35 PG Care Time/CCT Total # of Minutes Spent Total Time Spent with Patient: Total time spent is greater than 50% in coordination of care (as documented) at patient's floor/unit and/or counseling patient: Coding Level of Care Code 72966 SUB INP/OBS CARE 3/50MIN Diagnoses KISHA (acute kidney injury) N17.9 Atrial flutter with rapid ventricular response I48.92 Malignant pleural effusion J91.0 Hydronephrosis N13.30 Uterine cancer C55 History of CVA (cerebrovascular accident) Z86.73 Nausea R11.0 History of deep venous thrombosis (DVT) of distal vein of left lower extremity Z86.718 Benign essential hypertension I10 Carcinomatosis C80.0 Hyponatremia E87.1
[2023-02-15] MEDS ORDERED: MoRPHine SULFATE 2 MG/ML CARP IV PRN (19:06)
[2023-02-15] MEDS: LACTATED RINGER'S 1,000 ML IV SCH (20:16)
[2023-02-15 20:44] LABS: Appearance Pleural Fluid Cloudy; Color Pleural Fluid Amber; RBC Pleural Fluid Auto 10000 /uL; Source Pleural Fluid Left Lung; WBC Pleural Fluid Auto 1199 /uL
--- NOTE | 2023-02-15 21:16 | Fluoroscopy Report ---
FL retrograde includes kub CLINICAL HISTORY: CYSTO,RETRO,STENT TECHNIQUE: 7 views were obtained with the C-arm in the OR with the above procedure. Total fluoroscopy time was 114 seconds. Radiation dose was 38 mGy. Comparison: Comparison is made to CT abdomen pelvis 09/23/2022 FINDINGS/IMPRESSION: Intraoperative images were obtained of bilateral retrograde pyelogram and bilate ral ureteral stent placement. In the final images, stents are in satisfactory position. Please correlate with intraoperative fluoroscopy and operative report. ACT 112: Negative or not required by law. Electronically signed by: Ronaldo Briscoe M.D. 02/15/2023 9:14 PM
[2023-02-15 22:39] LABS: Lymphocytes, Fluid 7 %; Mono,Macrophage,Mesothelial 89 %; Neutrophils, Fluid 4 %
[2023-02-16] MEDS: ACETAMINOPHEN 1,000 MG/100 ML VIAL IV PRN ×3 (01:02→19:37)
[2023-02-16] MEDS ORDERED: Heparin IV Adult Wt-Based Standard *NO* Bolus Protocol IV STA (04:44)
[2023-02-16 05:33] LABS: BUN Creatinine Ratio 16.5 (10-20); Est GFR (African American) 11.8 ml/min; Est GFR (Non-African American) 10.2 ml/min; Potassium 4.8 mmol/L (3.5-5.1)
[2023-02-16 05:40] LABS: Hematocrit (blood only) 32.5 % (37.0-47.0); Hemoglobin 10.8 g/dl (12.0-16.0); Mean Corpuscular Hemoglobin 30.6 pg (25.0-34.0); Mean Corpuscular Hgb Conc 33.2 g/dL (32.0-36.0); Mean Corpuscular Volume 92.1 fL (80.0-100.0); Mean Platelet Volume 9.8 fL (9.4-12.4); Platelet Count 244 K/uL (130-400); RDW Coefficient of Variation 15.6 % (11.5-14.5); RDW Standard Deviation 51.9 fL (36.4-46.3); Red Blood Count 3.53 M/uL (4.20-5.40); White Blood Count 11.27 K/ul (4.8-10.8)
[2023-02-16 05:44] LABS: Partial Thromboplastin Time 26.9 Seconds (21.0-31.0); Prothrombin Time 11.2 Seconds (9.0-12.0)
[2023-02-16] MEDS: HEPARIN SODIUM/DEXTROSE 25,000 UNITS/500 ML BAG IV SCH (05:59)
[2023-02-16] MEDS: AMIODARONE / D5W 360 MG/200 ML BAG IV SCH (06:32)
--- NOTE | 2023-02-16 07:08 | Anesthesiology Consultation ---
Date of Service February 16, 2023 Assessment & Plan (1) Encounter for pre-operative examination: Chart Review Chart Review: Acceptable Risk for Surgery History Surgery Operation Date: 02/15/23 12:00 Proposed Procedures p Ureteral Stent Insertion/Removal - Mitesh Padilla DO Height/Weight Height: 5 ft 3 in Weight: 82.4 kg Allergies Allergy/AdvReac Type Severity Reaction Status Date / Time adhesive tape Allergy Intermediate localized Verified 02/03/23 11:03 skin reddness/irritation latex Allergy Intermediate localized Verified 02/03/23 11:03 skin reddness/irritation aspirin Allergy Mild facial Verified 02/03/23 11:03 flushing ciprofloxacin Allergy Unknown Rash Verified 02/03/23 11:03 Medications Home Medications Medication Instructions Recorded Confirmed Last Taken cholecalciferol (vitamin D3) 25 1,000 units PO QPM 11/09/18 02/13/23 07/01/22 18:30 mcg (1,000 unit) capsule paroxetine HCl 10 mg tablet (Paxil) 10 mg PO QDB #90 tabs 04/08/22 02/13/23 07/02/22 07:00 atorvastatin 20 mg tablet 20 mg PO HS #90 tabs 04/29/22 02/13/23 02/12/23 cyanocobalamin (vitamin B-12) 1,000 mcg PO DAILY 06/26/22 02/13/23 07/01/22 18:30 1,000 mcg tablet (Vitamin B-12) folic acid 400 mcg tablet 0.4 mg PO QPM 06/26/22 02/13/23 07/02/22 1830 loratadine 10 mg tablet (Claritin) 10 mg PO UD PRN Allergy Symptoms 06/26/22 02/13/23 Unknown omeprazole 20 mg capsule,delayed 20 mg PO QAM #90 caps 09/18/22 02/13/23 Unknown release Bifidobacterium infantis 4 mg 4 mg PO DAILY 11/07/22 02/13/23 Unknown capsule (Align) acetaminophen 650 mg 650 mg PO Q8H PRN Pain 11/07/22 02/13/23 Unknown tablet,extended release (Tylenol Arthritis Pain) fluticasone propionate 50 2 spray intranasal HS 11/07/22 02/13/23 Unknown mcg/actuation nasal spray,suspension calcium carbonate 600 mg-vitamin 1 tab PO BID 11/27/22 02/13/23 Unknown D3 10 mcg (400 unit) tablet (Calcium 600 + D(3)) [id number] 5 mg-zeaxanth 1 cap PO DAILY 11/27/22 02/13/23 Unknown 1 mg-bilberry 7.5 mg-herbal capsule (Macular Health Formula) multivitamin (Daily Multi-Vitamin 1 tab PO DAILY 11/27/22 02/13/23 Unknown tablet) magnesium oxide See Rx Instructions PO .COMPLEX 12/02/22 02/13/23 Unknown apixaban 5 mg tablet (Eliquis) 5 mg PO BID #180 tabs 12/04/22 02/13/23 02/12/23 5 clopidogrel 75 mg tablet 75 mg PO QAM #90 tabs 12/04/22 02/13/23 01/27/23 lorazepam 0.5 mg tablet (Ativan) 0.5 mg PO BID PRN anxiety #60 tabs 12/04/22 02/03/23 Unknown allopurinol 300 mg tablet 300 mg PO DAILY 02/13/23 02/13/23 Unknown prochlorperazine maleate 10 mg 10 mg PO Q6 PRN Nausea 02/13/23 02/13/23 02/13/23 tablet 10 Active Medications Generic Name Dose Route Start Last Admin Trade Name Freq PRN Reason Stop Dose Admin Allopurinol 300 mg 02/14/23 09:00 02/15/23 10:10 Allopurinol 300 Mg Tab PO 03/16/23 08:59 Not Given DAILY CAMMIE Atorvastatin Calcium 20 mg 02/13/23 21:00 02/14/23 22:58 Atorvastatin 20 Mg Tab PO 03/15/23 20:59 Not Given HS CAMMIE Calcium/Vitamin D 1 tab 02/13/23 21:00 02/14/23 22:58 Calcium 600mg + Vit D 400 Iu Tab PO 03/15/23 20:59 Not Given BID CAMMIE Cyanocobalamin 1,000 mcg 02/14/23 09:00 02/14/23 08:06 Cyanocobalamin (B-12) 500 Mcg Tablet PO 03/16/23 08:59 1,000 mcg DAILY CAMMIE Administration Folic Acid 400 mcg 02/13/23 21:00 02/14/23 22:58 Folic Acid 400 Mcg Tab PO 03/15/23 20:59 Not Given QPM CAMMIE Amiodarone HCl/Dextrose 360 mg in 200 mls @ 16.667 mls/hr 02/14/23 20:00 02/16/23 06:32 Nexterone / D5w IV 03/16/23 19:59 0.5 mg/min .Q12H CAMMIE 16.7 mls/hr Administration 0.5 MG/MIN Prochlorperazine 5 mg/ Syringe 5 mls @ 5 mls/min 02/14/23 19:36 02/15/23 10:04 IV 03/16/23 19:35 5 mls/min Q6H PRN Administration Nausea And Vomiting Pantoprazole Sodium 40 mg/ 10 mls @ 5 mls/min 02/15/23 09:00 02/15/23 20:32 Syringe IV 03/17/23 08:59 5 mls/min BID CAMMIE Administration Acetaminophen 1,000 mg in 100 mls @ 400 mls/hr 02/15/23 18:25 02/16/23 01:17 Ofirmev IV 02/18/23 18:24 Infused Q8H PRN Infusion pain or T>38 C Lactated Ringer's 1,000 mls @ 80 mls/hr 02/15/23 19:00 02/15/23 20:16 Lr IV 03/17/23 18:59 80 mls/hr .[id number] CAMMIE Administration Heparin Sodium/Dextrose 25,000 units in 500 mls @ 22 mls/hr 02/16/23 05:00 02/16/23 05:59 Heparin Sodium/Dextrose IV 03/18/23 04:59 1,100 units/hr .[id number] CAMMIE 22 mls/hr Administration Protocol 1,100 UNITS/HR Morphine Sulfate 2 mg 02/15/23 19:06 02/15/23 19:31 Morphine Sulfate 2 Mg/Ml Carp IV 03/01/23 19:05 2 mg Q3H PRN Administration Pain Multivitamins/Minerals 1 tab 02/14/23 09:00 02/14/23 08:06 Cerovite Adv Formula Tab PO 03/16/23 08:59 1 tab DAILY CAMMIE Administration Pantoprazole Sodium 40 mg 02/14/23 09:00 02/14/23 08:06 Pantoprazole 40 Mg Tab PO 03/16/23 08:59 40 mg QAM CAMMIE Administration Paroxetine HCl 10 mg 02/14/23 12:30 02/15/23 15:51 Paroxetine Hcl 10 Mg Tab PO 03/16/23 12:29 Not Given DAILY@1230 [facility] Polyethylene Glycol 17 gm 02/14/23 21:00 02/15/23 20:32 Polyethylene (Miralax) 17 Gm Pack PO 03/16/23 20:59 Not Given BID [facility] Vitamin D 1,000 units 02/13/23 21:00 02/14/23 22:58 Cholecalciferol 1,000 Units 25 Mcg Tab PO 03/15/23 20:59 Not Given QPM CAMMIE NPO Date Last Intake of Fluids: 02/14/23 Time Last Intake of Fluids: 23:00 Date Last Intake of Solids: 02/14/23 Time Last Intake of Solids: 16:30 Past Medical History Medical History (Updated 02/16/23 @ 07:08 by Adriel Elkins MD) Anemia Anxiety Ascites Benign essential hypertension Chronic interstitial cystitis Chronic reflux esophagitis Depression Endometrial cancer GERD (gastroesophageal reflux disease) History of CVA (cerebrovascular accident) History of DVT of lower extremity left leg History of endometrial cancer Hx of basal cell carcinoma Hyperlipidemia Hypertension Hyponatremia Malignant pleural effusion Nausea and vomiting after administration of anesthetic agent Osteopenia Seasonal allergies 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 still inplace. will bring card for current port DOS. Hx of basal cell carcinoma excision Hx of tonsillectomy Port-A-Cath in place (07/02/22) Insertion of Right Internal Jugular Access Port with Fluoroscopy(Right) - Martin Clark, DO, FACS Social History Smoking Status: Never smoker Smoking cigarettes per day: 10 or less Do You Dip or Chew Tobacco: No Hx Alcohol Use: No Alcohol type: wine alcohol intake frequency: a few times a month Hx Substance Use: No substance use type: does not use Physical Exam Vital Signs Last Vital Signs Temp 36.6 C 02/16/23 02:57 Pulse 83 02/16/23 02:57 Resp 17 02/16/23 02:57 BP 149/85 H 02/16/23 02:57 Pulse Ox 96 02/16/23 02:57 O2 Del Method Room Air 02/16/23 02:57 O2 Flow Rate 3 02/15/23 16:03 Testing Laboratory Results 02/16/23 04:53 02/16/23 04:53 PT 11.2 Seconds (9.0-12.0) 02/16/23 05:02 INR 1.0 (0.9-1.1) 02/16/23 05:02 APTT 26.9 Seconds (21.0-31.0) 02/16/23 05:02 Urine Color Dark Yellow 02/15/23 00:33 Urine Appearance Turbid (Clear) A 02/15/23 00:33 Urine pH 5.0 (4.5-7.5) 02/15/23 00:33 Ur Specific [place] 1.020 (1.000-1.030) 02/15/23 00:33 Urine Protein 1+ (Negative) H 02/15/23 00:33 Urine Glucose (UA) Negative (Negative) 02/15/23 00:33 Urine Ketones Negative (Negative) 02/15/23 00:33 Urine Nitrite Negative (Negative) 02/15/23 00:33 Ur Leukocyte Esterase 1+ (Negative) H 02/15/23 00:33 Urine WBC (Auto) 10-30 /hpf (0-5) H 02/15/23 00:33 Urine RBC (Auto) >30 /hpf (0-4) H 02/15/23 00:33 U Hyaline Cast (Auto) 1-5 /lpf (0-5) 02/15/23 00:33 U Epithel Cells (Auto) >30 /lpf (0-5) H 02/15/23 00:33 Urine Bacteria (Auto) Negative (Negative) 02/15/23 00:33 02/15/23 17:30 Gram Stain - Final Pleural Fluid,Left
[2023-02-16] MEDS ORDERED: PROPOFOL IV EMULSION 10 MG/ML 20 ML VIAL IV ONE (07:10)
[2023-02-16] MEDS: LACTATED RINGER'S 1,000 ML IV SCH (09:04)
[2023-02-16] MEDS: PANTOprazole 40 MG in SYRINGE 0 ML IV SCH ×2 (09:06→21:54)
[2023-02-16] MEDS: allopurinoL 300 MG TAB PO SCH (10:13)
--- NOTE | 2023-02-16 10:13 | Pulmonology Progress Note ---
Date of Service February 16, 2023 Assessment & Plan (1) Exertional shortness of breath: (2) Malignant pleural effusion: (3) Renal failure (ARF), acute on chronic: (4) Lethargy: Plan Discussed with off going pasteurizer. Patient with a history of bilateral malignant effusions secondary to metastatic uterine cancer. Left Pleurx catheter placed 02/15/[address] Correa. Patient has right-sided Pleurx catheter as well. Will recommend drainage of left pleural effusion every other day and drainage of right effusion as previously scheduled every Thursday and . The more pressing issues are her underlying renal failure which appears to be progressing. She is also quite lethargic which may be a function of her hyponatremia and uremia. Given her overall grave condition, recommend palliative care consultation. Admission and Anticipated Discharge Date Admission Date: February 13, 2023 Subjective Patient seen and examined. She is very weak and lethargic. She notes that she is tired. She denies any shortness of breath or chest pain at present. She did receive Tylenol earlier due to pain related to the Pleurx insertion yesterday. Review of Systems Review of Systems: All systems reviewed & are unremarkable except as noted in HPI & below Physical Exam Physical Exam: Constitutional: No acute distress HEENT: EOMI, PERRLA Respiratory system: Bilateral lower lobe crackles. No increased work of breathing. Bilateral Pleurx catheter sites noted and are currently bandaged without any evidence of leakage or blood CVS: S1-S2 positive, no murmurs or gallops, tachycardia Abdomen: Soft, nontender, tense, nondistended, positive bowel sounds x4 Extremities: +2 pulses bilaterally radialis/ dorsalis pedis, no cyanosis, +2 pitting edema bilateral lower extremity Neuro: Awake alert oriented x3 Psych: Lethargic. Anxious appearing. Alert and oriented x3. G/U: No Navarro Skin: no rashes, warm and dry Lymphatic: no cervical or axillary lymphadenopathy Results & Data Results & Data Vital Signs (Past 12 Hours) Vital Signs Temp Pulse Resp BP BP Pulse Ox O2 Del Method 02/16/23 07:40 36.6 C 89 137/95 94 Room Air 02/16/23 02:57 36.6 C 83 17 149/85 H 96 Room Air 02/15/23 23:20 36.4 C L 90 17 128/83 96 Room Air PG Care Time/CCT Total # of Minutes Spent Total Time Spent with Patient: Total time spent is greater than 50% in coordination of care (as documented) at patient's floor/unit and/or counseling patient: Coding Level of Care Code 83526 SUB INP/OBS CARE 2/35MIN Diagnoses Exertional shortness of breath R06.02 Malignant pleural effusion J91.0 Renal failure (ARF), acute on chronic N17.9; N18.9 Lethargy R53.83
[2023-02-16] MEDS: POLYETHYLENE (MIRALAX) 17 GM PACK PO SCH ×2 (10:14→21:54)
[2023-02-16] MEDS: AMIODARONE 200 MG TAB PO SCH ×2 (11:14→18:08)
[2023-02-16] MEDS: SODIUM BICARBONATE 8.4% 75 MEQ in SODIUM CHLORIDE 0.45 % 1,000 ML IV SCH (11:14)
--- NOTE | 2023-02-16 11:32 | Urology Progress Note ---
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 POD #1 s/p Cystoscopy with Transurethral Resection of Bladder Tumor Large, Bilateral Ureteral Dilation, Bilateral Retrograde Pyelogram, and Bilateral Ureteral Stent Insertion with Dr. Padilla. Afebrile and hemodynamically stable. Labs reviewed-WBC 11.27, hemoglobin 10.8, creatinine 4.11. Urine culture pending. Navarro intact, draining minimal pink-tinged urine. Continue to monitor. Plan to maintain the bilateral ureteral stents and Navarro catheter for maximum drainage. Continue supportive care and close monitoring. Continue to trend labs. Will arrange outpatient follow-up with our service for continued care and pathology review. Urology will follow. Admission and Anticipated Discharge Date Admission Date: February 13, 2023 Subjective Patient examined at bedside this AM. Awake, resting in bed on arrival. No acute distress. Family at bedside. Reports she is very tired. Denies any significant pain or discomfort at present Navarro intact, draining pink-tinged urine. No fevers. Review of Systems Constitutional: as per Subjective / HPI Genitourinary: as per Subjective / HPI Physical Exam Constitutional: no acute distress Appears fatigued Respiratory: no respiratory distress and no labored breathing Neurologic: awake Genitourinary: Navarro intact, draining pink-tinged urine Results & Data Vital Signs (Past 12 Hours) Vital Signs Temp Pulse Pulse Resp BP BP Pulse Ox 02/16/23 08:00 77 02/16/23 08:00 02/16/23 07:40 36.6 C 89 137/95 94 02/16/23 02:57 36.6 C 83 17 149/85 H 96 O2 Del Method 02/16/23 08:00 02/16/23 08:00 Room Air 02/16/23 07:40 Room Air 02/16/23 02:57 Room Air PG Care Time/CCT Total # of Minutes Spent Total Time Spent with Patient: Total time spent is greater than 50% in coordination of care (as documented) at patient's floor/unit and/or counseling patient: Coding Level of Care Code 78891 SUB INP/OBS CARE MIN Diagnoses Hematuria R31.9 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
[2023-02-16] MEDS: PARoxetine HCL 10 MG TAB PO SCH (12:30)
[2023-02-16 13:17] LABS: Partial Thromboplastin Ratio 3.6
[2023-02-16 13:37] LABS: Partial Thromboplastin Time 100.8 Seconds (21.0-31.0)
--- NOTE | 2023-02-16 17:03 | Oncology Consultation ---
Date of Consultation February 16, 2023 Assessment & Plan (1) Mixed malignant Mullerian tumor of uterus, stage IV: Plan Doing poorly clinically. Patient has received multiple lines of chemotherapy treatments Since 2019. Had an extensive discussion with the patient and her family. Explained to her that given current performance status as well as extensiveness of her disease, would strongly recommend considering supportive care/hospice so I do not think she would be able to tolerate systemic therapy with Lenvima. Although she would likely tolerate Keytruda, molecular testing on tumor sample suggests that she is less likely to get significant clinical benefit from this treatment. Following extensive discussion, patient indicated that she was strongly considering hospice and would like to discuss with palliative care regarding what hospice services will be available to her. As such, I will place palliative care consult. Thank you for this consult. Oncology will continue following patient while in the hospital. Please feel free to call if you have any further questions History of Present Illness Reason for Consultation: Metastatic carcinoma Attending Physician: Eduardo Blanco MD History of Present Illness Ms. Puckett is a very pleasant female with metastatic uterine Cancer (mixed mullerian carcinoma) with involvement of bilateral fallopian tubes, left pelvis and omentum, diagnosed 11/15/19 for which she s/p multiple lines of treatment and was most recently on carboplatin/gemcitabine. Most recent restaging imaging studies revealed disease progression for which she was supposed to start pembrolizumab/Lenvima late last week. She however presented to clinic with decline in performance status, abdominal distention, recurrent effusion for which she s/p bilateral Pleurx catheter placement, acute kidney injury for which she is now status post bilateral ureteral stent placement on 02/15/2023. Most recent labs shows multiple electrolyte abnormalities as well as worsening renal function with creatinine of 4.11. She complains of significant fatigue, nausea, abdominal fullness, Weight loss and overall decline in performance status Allergies Allergy/AdvReac Type Severity Reaction Status Date / Time adhesive tape Allergy Intermediate localized Verified 02/03/23 11:03 skin reddness/irritation latex Allergy Intermediate localized Verified 02/03/23 11:03 skin reddness/irritation aspirin Allergy Mild facial Verified 02/03/23 11:03 flushing ciprofloxacin Allergy Unknown Rash Verified 02/03/23 11:03 Home Medications Medication Instructions Recorded Confirmed Type cholecalciferol (vitamin D3) 25 1,000 units PO QPM 11/09/18 02/13/23 History mcg (1,000 unit) capsule paroxetine HCl 10 mg tablet (Paxil) 10 mg PO QDB #90 tabs 04/08/22 02/13/23 Rx atorvastatin 20 mg tablet 20 mg PO HS #90 tabs 04/29/22 02/13/23 Rx cyanocobalamin (vitamin B-12) 1,000 mcg PO DAILY 06/26/22 02/13/23 History 1,000 mcg tablet (Vitamin B-12) folic acid 400 mcg tablet 0.4 mg PO QPM 06/26/22 02/13/23 History loratadine 10 mg tablet (Claritin) 10 mg PO UD PRN Allergy Symptoms 06/26/22 02/13/23 History omeprazole 20 mg capsule,delayed 20 mg PO QAM #90 caps 09/18/22 02/13/23 Rx release Bifidobacterium infantis 4 mg 4 mg PO DAILY 11/07/22 02/13/23 History capsule (Align) acetaminophen 650 mg 650 mg PO Q8H PRN Pain 11/07/22 02/13/23 History tablet,extended release (Tylenol Arthritis Pain) fluticasone propionate 50 2 spray intranasal HS 11/07/22 02/13/23 History mcg/actuation nasal spray,suspension calcium carbonate 600 mg-vitamin 1 tab PO BID 11/27/22 02/13/23 History D3 10 mcg (400 unit) tablet (Calcium 600 + D(3)) [id number] 5 mg-zeaxanth 1 cap PO DAILY 11/27/22 02/13/23 History 1 mg-bilberry 7.5 mg-herbal capsule (Macular Health Formula) multivitamin (Daily Multi-Vitamin 1 tab PO DAILY 11/27/22 02/13/23 History tablet) magnesium oxide See Rx Instructions PO .COMPLEX 12/02/22 02/13/23 History apixaban 5 mg tablet (Eliquis) 5 mg PO BID #180 tabs 12/04/22 02/13/23 Rx clopidogrel 75 mg tablet 75 mg PO QAM #90 tabs 12/04/22 02/13/23 Rx lorazepam 0.5 mg tablet (Ativan) 0.5 mg PO BID PRN anxiety #60 tabs 12/04/22 02/03/23 Rx allopurinol 300 mg tablet 300 mg PO DAILY 02/13/23 02/13/23 History prochlorperazine maleate 10 mg 10 mg PO Q6 PRN Nausea 02/13/23 02/13/23 History tablet Patient History Medical History (Updated 02/16/23 @ 17:11 by Li Campos MD) Anemia Anxiety Ascites Benign essential hypertension Chronic interstitial cystitis Chronic reflux esophagitis Depression Endometrial cancer GERD (gastroesophageal reflux disease) History of CVA (cerebrovascular accident) History of DVT of lower extremity left leg History of endometrial cancer Hx of basal cell carcinoma Hyperlipidemia Hypertension Hyponatremia Lethargy Malignant pleural effusion Nausea and vomiting after administration of anesthetic agent Osteopenia Renal failure (ARF), acute on chronic Seasonal allergies 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 still inplace. will bring card for current port DOS. Hx of basal cell carcinoma excision Hx of tonsillectomy Port-A-Cath in place (07/02/22) Insertion of Right Internal Jugular Access Port with Fluoroscopy(Right) - D luisito Clark DO, FACS Family History Mother Hypertension Malignant neoplasm of urinary bladder Denies family history of Ovarian cancer Prostate cancer Myocardial infarction Breast cancer Colorectal cancer Social History Smoking Status: Never smoker Tobacco Type: Cigarettes Age Started Using Tobacco: 20; Age Quit Using Tobacco: 22; packs per day: 0.5; Cigarettes Per Day: 10 or less; Second Hand Exposure: No; Do You Dip or Chew Tobacco: No; Hx Alcohol Use: No Hx Substance Use: No Preferred Language: Yoruba Communication Ability: Effective Visual Impairment: No Limitations Hearing Ability: Normal Hardwood Floor Installer Required: No Beliefs That Will Affect Care: None marital status: Current Living Situation: Family Current Living Situation Comment: Lives with daughter Gardenia current occupational status: retired How many Children do You have: 2 Feels Safe at Home: Yes Childhood Exposure to Second-Hand Smoke: Yes Diet: regular caffeine: Yes during the past year weight has: remained stable Dental Care, Regularly: Yes Physical Activity Frequency: 3-4 Times per Week Seatbelt Use: always Sunscreen Use: Yes Assistive Devices: Bedside Commode, Glasses, Hospital Bed, Walker and Wheelchair Results & Data Vital Signs (Past 12 Hours) Vital Signs Temp Pulse Pulse Resp BP BP Pulse Ox 02/16/23 12:13 36.6 C 85 19 127/84 94 02/16/23 08:00 77 02/16/23 08:00 02/16/23 07:40 36.6 C 89 137/95 94 O2 Del Method 02/16/23 12:13 Room Air 02/16/23 08:00 02/16/23 08:00 Room Air 02/16/23 07:40 Room Air
[2023-02-16 17:23] LABS: BUN Creatinine Ratio 15.9 (10-20); Calcium 7.6 mg/dl (8.6-10.3); Creatinine Clr Calc Pharmacy 11.9 ml/min; Est GFR (African American) 11.1 ml/min; Est GFR (Non-African American) 9.5 ml/min; Potassium 4.8 mmol/L (3.5-5.1)
--- NOTE | 2023-02-16 17:26 | Nephrology Consultation ---
Date of Consultation February 16, 2023 Assessment & Plan (1) KISHA (acute kidney injury): (2) Hyponatremia: (3) Uterine cancer: (4) Malignant pleural effusion: (5) Carcinomatosis: Plan Chart reviewed. Patient interviewed and I have met with Ms. Puckett's daughter, Gardenia. Ms. Puckett and her family recognize the gravity of her illness and poor prognosis. They wish to focus on Ms. Puckett's comfort and do not wish further testing or escalation of care. Ms. Puckett indicates that she is awaiting discussion w/ Palliative oracle manufacturing consultant. Clinically suspect KISHA is on the basis of obstruction. Patient is now nonoliguric following bilateral ureteral stent placement. Suspect renal function may stabilize over the next 48-72 hrs. Agree w/ transitioning from LR to NaHCO3 gtt. Serum sodium is relatively stable at 125 mmol/L. Will not order further studies at this time as patient wishes to focus on comfort. Patient is not a GAG WRITER candidate due to widely metastatic cancer. Will follow peripherally and await Oncology and Palliative Care input. History of Present Illness Reason for Consultation: KISHA, hyponatremia Attending Physician: Eduardo Blanoc MD History of Present Illness Ms. Puckett is a 72 year old white female who is seen at the request of Dr. Blanco for evaluation of KISHA, hyponatremia. Information for the HPI is obtained from interview of the patient and review of the EMR. HPI is summarized as follows: Ms. Puckett has uterine carcinoma with malignant bilateral pleural effusions and carcinomatosis. She was admitted to [facility] 02/13/23 for evaluation of fatigue and exertional dyspnea. Evaluation revealed bilateral pleural effusions, creatinine had risen from 1.0 to 3.2. Renal US revealed severe bilateral hydronephrosis. Urology performed cystoscopy with bilateral stent placement 02/15/23. Patient is now nonoliguric but Cr has risen to 4.1, CO2 19 and Na 126. At the time of my evaluation, Ms. Puckett was visiting with her family. They indicate that NaHCO3 gtt has been started and follow up PRP drawn. Ms. Puckett and her family indicate that they are awaiting Palliative Care consultation and wish to transition to comfort measures. They do not desire further diagnostic studies and do not wish to escalate care. Allergies Allergy/AdvReac Type Severity Reaction Status Date / Time adhesive tape Allergy Intermediate localized Verified 02/03/23 11:03 skin reddness/irritation latex Allergy Intermediate localized Verified 02/03/23 11:03 skin reddness/irritation aspirin Allergy Mild facial Verified 02/03/23 11:03 flushing ciprofloxacin Allergy Unknown Rash Verified 02/03/23 11:03 Home Medications Medication Instructions Recorded Confirmed Type cholecalciferol (vitamin D3) 25 1,000 units PO QPM 11/09/18 02/13/23 History mcg (1,000 unit) capsule paroxetine HCl 10 mg tablet (Paxil) 10 mg PO QDB #90 tabs 04/08/22 02/13/23 Rx atorvastatin 20 mg tablet 20 mg PO HS #90 tabs 04/29/22 02/13/23 Rx cyanocobalamin (vitamin B-12) 1,000 mcg PO DAILY 06/26/22 02/13/23 History 1,000 mcg tablet (Vitamin B-12) folic acid 400 mcg tablet 0.4 mg PO QPM 06/26/22 02/13/23 History loratadine 10 mg tablet (Claritin) 10 mg PO UD PRN Allergy Symptoms 06/26/22 02/13/23 History omeprazole 20 mg capsule,delayed 20 mg PO QAM #90 caps 09/18/22 02/13/23 Rx release Bifidobacterium infantis 4 mg 4 mg PO DAILY 11/07/22 02/13/23 History capsule (Align) acetaminophen 650 mg 650 mg PO Q8H PRN Pain 11/07/22 02/13/23 History tablet,extended release (Tylenol Arthritis Pain) fluticasone propionate 50 2 spray intranasal HS 11/07/22 02/13/23 History mcg/actuation nasal spray,suspension calcium carbonate 600 mg-vitamin 1 tab PO BID 11/27/22 02/13/23 History D3 10 mcg (400 unit) tablet (Calcium 600 + D(3)) [id number] 5 mg-zeaxanth 1 cap PO DAILY 11/27/22 02/13/23 History 1 mg-bilberry 7.5 mg-herbal capsule (Macular Health Formula) multivitamin (Daily Multi-Vitamin 1 tab PO DAILY 11/27/22 02/13/23 History tablet) magnesium oxide See Rx Instructions PO .COMPLEX 12/02/22 02/13/23 History apixaban 5 mg tablet (Eliquis) 5 mg PO BID #180 tabs 12/04/22 02/13/23 Rx clopidogrel 75 mg tablet 75 mg PO QAM #90 tabs 12/04/22 02/13/23 Rx lorazepam 0.5 mg tablet (Ativan) 0.5 mg PO BID PRN anxiety #60 tabs 12/04/2207/24 Rx allopurinol 300 mg tablet 300 mg PO DAILY 02/13/23 02/13/23 History prochlorperazine maleate 10 mg 10 mg PO Q6 PRN Nausea 02/13/23 02/13/23 History tablet Patient History Medical History Anemia Anxiety Ascites Benign essential hypertension Chronic interstitial cystitis Chronic reflux esophagitis Depression Endometrial cancer GERD (gastroesophageal reflux disease) History of CVA (cerebrovascular accident) History of DVT of lower extremity left leg History of endometrial cancer Hx of basal cell carcinoma Hyperlipidemia Hypertension Hyponatremia Lethargy Malignant pleural effusion Nausea and vomiting after administration of anesthetic agent Osteopenia Renal failure (ARF), acute on chronic Seasonal allergies 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 still inplace. will bring card for current port DOS. Hx of basal cell carcinoma excision Hx of tonsillectomy Port-A-Cath in place (07/02/22) Insertion of Right Internal Jugular Access Port with Fluoroscopy(Right) - Martin Clark, , FACS Family History Mother Hypertension Malignant neoplasm of urinary bladder Denies family history of Ovarian cancer Prostate cancer Myocardial infarction Breast cancer Colorectal cancer Social History Smoking Status: Never smoker Tobacco Type: Cigarettes Age Started Using Tobacco: 20; Age Quit Using Tobacco: 22; packs per day: 0.5; Cigarettes Per Day: 10 or less; Second Hand Exposure: No; Do You Dip or Chew Tobacco: No; Hx Alcohol Use: No Hx Substance Use: No Preferred Language: Kuwaiti Communication Ability: Effective Visual Impairment: No Limitations Hearing Ability: Normal Energy Engineer Required: No Beliefs That Will Affect Care: None marital status: Current Living Situation: Family Current Living Situation Comment: Lives with daughter Gardenia current occupational status: retired How many Children do You have: 2 Feels Safe at Home: Yes Childhood Exposure to Second-Hand Smoke: Yes Diet: regular caffeine: Yes during the past year weight has: remained stable Dental Care, Regularly: Yes Physical Activity Frequency: 3-4 Times per Week Seatbelt Use: always Sunscreen Use: Yes Assistive Devices: Bedside Commode, Glasses, Hospital Bed, Walker and Wheelchair Review of Systems Constitutional: no fever Eyes: no problem reported Ear, Nose, Mouth, Throat: no problem reported Respiratory: + dyspnea on exertion Cardiovascular: no chest pain Gastrointestinal: no abdominal pain, no nausea, no vomiting and no diarrhea/loose stools Physical Exam Constitutional: not in distress Eyes: PERRL, conjunctivae normal, anicteric sclerae ENMT: external ear and nose normal, oropharynx normal Neck: trachea midline, no thyromegaly Respiratory: Auscultation: lungs clear to auscultation bilaterally (anteriorly) Cardiovascular: Rate/Rhythm: regular rate and regular rhythm Extremities: + edema (3+ pretibial pitting edema) Gastrointestinal (Abdomen): Inspection/Auscultation: + abdomen distended Percussion/Palpation: + ascites; abdomen nontender Neurologic: Speech / Cognition: normal speech and normal cognition Results & Data Vital Signs (Past 12 Hours) Vital Signs Temp Pulse Pulse Resp BP BP Pulse Ox 02/16/23 12:13 36.6 C 85 19 127/84 94 02/16/23 08:00 77 02/16/23 08:00 02/16/23 07:40 36.6 C 89 137/95 94 O2 Del Method 02/16/23 12:13 Room Air 02/16/23 08:00 02/16/23 08:00 Room Air 02/16/23 07:40 Room Air Laboratory Results Laboratory Tests 02/16/23 02/16/23 04:53 16:55 WBC 11.27 H Hgb 10.8 L Hct 32.5 L Plt Count 244 Sodium 125 L Potassium 4.8 Chloride 92 L Carbon Dioxide 20 L BUN 69 H Creatinine 4.34 H Glucose 106 H Calcium 7.6 L PG Care Time/CCT Total # of Minutes Spent Total Time Spent with Patient: Total time spent is greater than 50% in coordination of care (as documented) at patient's floor/unit and/or counseling patient: Coding Level of Care Code 13220 IN/OBS CONSULT LVL 5,80M Diagnoses KISHA (acute kidney injury) N17.9 Hyponatremia E87.1 Uterine cancer C55 Malignant pleural effusion J91.0 Carcinomatosis C80.0
--- NOTE | 2023-02-16 18:59 | XCELERA ---
[id number]
[2023-02-16] MEDS: HYDROmorphone INJ 0.5 MG/0.5 ML SYR IV PRN (22:23)
[2023-02-17 00:01] LABS: Partial Thromboplastin Ratio 4.8
[2023-02-17 00:21] LABS: Partial Thromboplastin Time 136.7 Seconds (21.0-31.0)
[2023-02-17] MEDS: SODIUM BICARBONATE 8.4% 75 MEQ in SODIUM CHLORIDE 0.45 % 1,000 ML IV SCH (01:33)
[2023-02-17] MEDS: HYDROmorphone INJ 0.5 MG/0.5 ML SYR IV PRN ×2 (04:22→17:35)
--- NOTE | 2023-02-17 06:21 | Electrocardiogram Report ---
Test Reason : Blood Pressure : / mmHG Vent. Rate : 145 BPM Atrial Rate : 141 BPM P-R Int : 000 ms QRS Dur : 066 ms QT Int : 248 ms P-R-T Axes : 000 018 145 degrees QTc Int : 385 ms Supraventricular tachycardia , likely atrial flutter Cannot rule out Anterior infarct (cited on or before 13-FEB-2023) Abnormal ECG When compared with ECG of 14-FEB-2023 01:51, (unconfirmed) Questionable change in initial forces of Anterior leads Nonspecific T wave abnormality, worse in Inferior leads Confirmed by Anup Worthington ([id number]) on 02/17/2023 6:20:39 AM Referred By: Gali Moore Confirmed By:Anup Worthington
--- NOTE | 2023-02-17 06:22 | Hospitalist Progress Note ---
Date of Service February 16, 2023 Assessment & Plan (1) KISHA (acute kidney injury): Plan: Primarily due to obstruction. POD #1 s/p cystoscopy with evidence of invasion of bladder by her uterine cancer. b/l ureters with hydronephrosis due to the above. s/p ureteral stent placement b/l by Dr Padilla. May have had a component of pre-renal hypoperfusion from recent nausea/vomiting at home leading to poor intake. Ttutle now in place. Despite placement of stents and TURBT yesterday along with ongoing supportive care & fluids her creatinine has worsened overnight. She is oliguric. She is 3rd spacing. Change LR to bicarbonate infusion. Consult nephrology for any additional recommendations. (2) Atrial flutter with rapid ventricular response: Plan: s/p institution of amiodarone infusion this weekend. Converted to NSR overnight. Amiodarone infusion had run for nearly 48 hours. Convert to PO amiodarone 400mg BID. appreciate Dr Worthington's consultation. echo is pending. (3) Malignant pleural effusion: Plan: b/l -- with pleurX catheters s/p placement of Left-sided catheter this admission by Dr Vegas fluid studies from left pleural effusion c/w exudative effusion pH is low - but culture negative (4) Hydronephrosis: Plan: b/l 2nd to obstruction from her cancer s/p ureteral stents by Dr Padilla (5) Uterine cancer: Plan: stage 4, with carcinomatosis and distal mets was to have chemotherapy the AM of admission at [facility] but was deferred and she was sent to ER due to her illness would benefit from a CT abd/pelvis to assess tumor burden, see if there is compromise to her GI tract (recent constipation, not passing flatus, distension, etc) CT may help guide her decision making regarding her care plan she would like to hold off on this at this time I spoke with Dr Campos today - she will see Ms Puckett in consult today (6) History of CVA (cerebrovascular accident): Plan: noted plavix is on hold lipitor is on hold (7) Nausea: Plan: exact etiology uncertain due to intra-abdominal metastatic disease? upper GI in origin? due to KISHA? other? combination? cont anti-emetics; fortunately has not had any vomiting overnight (8) History of deep venous thrombosis (DVT) of distal vein of left lower extremity: Plan: LLE in early 2022 has been on Eliquis since then Eliquis on hold due to procedures Heparin drip in tho (9) Benign essential hypertension: Plan: not on meds for such at home (10) Carcinomatosis: Plan: all prior imaging with extensive carcinomatosis see discussions above (11) Hyponatremia: Plan: 2nd to KISHA - worse today continue supportive care, bicarbonate infusion, etc. 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, stage IV: Plan: as above Plan daughter updated at bedside care d/w Dr Campos care d/w Dr Land suspect we are approaching a transition to palliative care pathway/comfort care palliative care consult has been placed for tomorrow Admission and Anticipated Discharge Date Admission Date: February 13, 2023 Subjective patient remains fatigued, tired, no appetite fortunately IS keeping meds down and sips of liquids and a few bites of food here/there is due for right pleurX catheter drainage today but she declines having it done - "maybe tomorrow" we discussed doing CT a/p to gain more information about her cancer - also wants to hold off on this denies pain in abdomen denies pain in the left chest at PleurX catheter site daughter at bedside along with close family friend we discussed that her UOP continues to be poor pt and pt's daughter will meet with Dr Campos today pt leaning towards palliative care approach tele - converted from a flutter to NSR Review of Systems Review of Systems: gen - poor appetite, fatigue psych - apparently got confused from morphine cv - no chest pain pulm - no dyspnea GI - no vomiting; no stool since admission Physical Exam Physical Exam: gen - pale, weak, fatigued in appearance, says very little mouth - MM dry neck - no JVD heart - RRR, s1 s2, no murmur lungs - CTA b/l, mildly decreased BS bases, pleurX catheters in place b/l abd - distended, BS+, NT, no HSM ext - pulses 2+ b/l, 1-2+ edema b/l -- but extremities are poor psych - sleepy chest - right upper chest - port clean Results & Data Results & Data Vital Signs (Past 12 Hours) Vital Signs Temp Pulse Pulse Resp BP BP Pulse Ox 02/16/23 12:13 36.6 C 85 19 127/84 94 02/16/23 08:00 77 02/16/23 08:00 02/16/23 07:40 36.6 C 89 137/95 94 O2 Del Method 02/16/23 12:13 Room Air 02/16/23 08:00 02/16/23 08:00 Room Air 02/16/23 07:40 Room Air Laboratory Results Laboratory Results - last 48 hr 02/15/23 02/15/23 02/15/23 07:16 07:16 07:16 WBC 12.26 H RBC 3.70 L Hgb 11.3 L Hct 33.5 L MCV 90.5 MCH 30.5 MCHC 33.7 RDW Std Deviation 51.1 H RDW Coeff of Elie 15.5 H Plt Count 263 MPV 9.6 Immature Gran % (Auto) 1.0 Neut % (Auto) 87.8 Lymph % (Auto) 5.0 [place] % (Auto) 6.0 Eos % (Auto) 0.1 Baso % (Auto) 0.1 Neut # (Auto) 10.78 H Lymph # (Auto) 0.61 L [place] # (Auto) 0.73 H Eos # (Auto) 0.01 Baso # (Auto) 0.01 Immature Gran # (Auto) 0.12 PT INR APTT 83.8 H* PTT Ratio 3.0 Sodium 128 L Potassium 4.4 Chloride 93 L Carbon Dioxide 21 Anion Gap 14 H BUN 66 H Creatinine 3.54 H D Est Cr Clr Drug Dosing 13.9 Est GFR ( Amer) 14.1 Est GFR (Non-Af Amer) 12.2 BUN/Creatinine Ratio 18.6 Glucose 123 H Calcium 8.2 L Fluid Neutrophils % Fluid Lymphocytes % Fluid Meso/Macro/[place] % Fluid Slide Review Fluid Comment Pleural Fluid Source Pleural Color Pleural Appearance Pleural pH Pleural WBC (Auto) Pleural RBC (Auto) Pleural Total Protein Pleural LDH Pleural Glucose 02/15/23 02/15/23 02/15/23 17:30 17:30 17:30 WBC RBC Hgb Hct MCV MCH MCHC RDW Std Deviation RDW Coeff of Elie Plt Count MPV Immature Gran % (Auto) Neut % (Auto) Lymph % (Auto) [place] % (Auto) Eos % (Auto) Baso % (Auto) Neut # (Auto) Lymph # (Auto) [place] # (Auto) Eos # (Auto) Baso # (Auto) Immature Gran # (Auto) PT INR APTT PTT Ratio Sodium Potassium Chloride Carbon Dioxide Anion Gap BUN Creatinine Est Cr Clr Drug Dosing Est GFR ( Amer) Est GFR (Non-Af Amer) BUN/Creatinine Ratio Glucose Calcium Fluid Neutrophils % 4 Fluid Lymphocytes % 7 Fluid Meso/Macro/[place] % 89 Fluid Slide Review Fluid Comment Pleural Fluid Source Left Lung Pleural Color [place] Pleural Appearance Cloudy Pleural pH 7.02 L Pleural WBC (Auto) 1199 Pleural RBC (Auto) 47997 Pleural Total Protein 3.0 Pleural LDH 1607 Pleural Glucose 35 02/16/23 02/16/23 02/16/23 04:53 04:53 05:02 WBC 11.27 H RBC 3.53 L Hgb 10.8 L Hct 32.5 L MCV 92.1 MCH 30.6 MCHC 33.2 RDW Std Deviation 51.9 H RDW Coeff of Elie 15.6 H Plt Count 244 MPV 9.8 Immature Gran % (Auto) Neut % (Auto) Lymph % (Auto) [place] % (Auto) Eos % (Auto) Baso % (Auto) Neut # (Auto) Lymph # (Auto) [place] # (Auto) Eos # (Auto) Baso # (Auto) Immature Gran # (Auto) PT 11.2 INR 1.0 APTT 26.9 PTT Ratio 1.0 Sodium 126 L Potassium 4.8 Chloride 93 L Carbon Dioxide 19 L Anion Gap 14 H BUN 68 H Creatinine 4.11 H D Est Cr Clr Drug Dosing 12.0 Est GFR ( Amer) 11.8 Est GFR (Non-Af Amer) 10.2 BUN/Creatinine Ratio 16.5 Glucose 126 H Calcium 8.0 L Fluid Neutrophils % Fluid Lymphocytes % Fluid Meso/Macro/[place] % Fluid Slide Review Fluid Comment Pleural Fluid Source Pleural Color Pleural Appearance Pleural pH Pleural WBC (Auto) Pleural RBC (Auto) Pleural Total Protein Pleural LDH Pleural Glucose PG Care Time/CCT Total # of Minutes Spent Total Time Spent with Patient: Total time spent is greater than 50% in coordination of care (as documented) at patient's floor/unit and/or counseling patient: Coding Level of Care Code 71865 SUB INP/OBS CARE 50MIN Diagnoses KISHA (acute kidney injury) N17.9 Atrial flutter with rapid ventricular response I48.92 Malignant pleural effusion J91.0 Hydronephrosis N13.30 Uterine cancer C55 History of CVA (cerebrovascular accident) Z86.73 Nausea R11.0 History of deep venous thrombosis (DVT) of distal vein of left lower extremity Z86.718 Benign essential hypertension I10 Carcinomatosis C80.0 Hyponatremia E87.1 Metabolic acidosis E87.20 Mixed malignant Mullerian tumor of uterus, stage IV C55
--- NOTE | 2023-02-17 06:41 | Electrocardiogram Report ---
Test Reason : Blood Pressure : / mmHG Vent. Rate : 128 BPM Atrial Rate : 128 BPM P-R Int : 156 ms QRS Dur : 080 ms QT Int : 300 ms P-R-T Axes : 072 024 123 degrees QTc Int : 438 ms Atrial flutter with 2 to 1 block Cannot rule out Anterior infarct (cited on or before 13-FEB-2023) Abnormal ECG When compared with ECG of 14-FEB-2023 13:12, (unconfirmed) No significant change was found Confirmed by Anup Worthington ([id number] on 02/17/2023 6:41:42 AM Referred By: Gali Moore Confirmed By:Anup Worthington
--- NOTE | 2023-02-17 06:55 | Palliative Care Consultation ---
Date of Consultation February 17, 2023 Assessment & Plan (1) Cancer related pain: Begin low dose TDF 12mcg q72h in anticipation for home hospice dc and her increasing inability to tolerate PO For now will use prn IV Dilaudid 0.25mg IV q2h prn for BTP can consider liquid dilaudid for home hospice if it can be obtained by commercial pharmacy if no success with TDF, may need to move to a dilaudid infusion (2) Weakness generalized: declining PS with terminal cancer progression goal is home with hospice once pain and symptoms are uner control. At this time they remain very uncontrolled (3) Dyspnea and respiratory abnormalities: (4) Advanced care planning/counseling discussion: 75min ACP face to face with pt, dtr, and close friends x2 who will be additional caregivers reviewed options for comfort care, hospice in hospital vs home hospice. ideally pt would like to get home and family very concerned about availability of services, feel they have not had good experience trying to get home health for pleurx care we agreed to work on improving her severe cancer pain and nausea while we work on a home hospice dc plan with [address] [place] [address] which [facility]. they are in agreement. she is moved to comfort care but because she just started oral amiodarone, has thrown up this morning after meds and is unclear how much she absorbed, we will leave her on telemetry for now while initiating comfort care. they met with cardiology and agree with staying on maiodarone as long as she can tolerate taking PO but are aware she may soon stop taking it. Agreeable to stopping non essential meds, no more labs or imaging/testing and transition focus to comfort. We spoke about code status: CPR survival: Only about 10% of patients who have [id number]-ae-[id number] sudden cardiac arrest survive to hospital discharge, with many survivors having neurologic impairment. This rate is even lower among patients with serious coexisting conditions, ie chance of survival to hospital discharge for in-hospital CPR in older people is low to moderate (15%) and decreases with age, comorbidities, performance status and frailty: for pts > 70 yo, more than half of the patients who initially survived resuscitation in the hospital before hospital discharge. The pooled survival to discharge after in-hospital CPR was 18% for patients between 70 and 79 years old, 15% for patients between 80 and 89 years old and 11% for patients of 90 years and older. (Ricki Gillette LJ, Felipe F, et al. Trends in short- and long-term survival among [id number]-nv-[id number] cardiac arrest patients alive at hospital arrival. Circulation 2014;130:0362-0599. AND Kelsea Colon, Raoul T, Reagan R, et al. Performance of clinical risk scores to predict mortality and neurological outcome in cardiac arrest patients. Resuscitation 2019;136:21-29.) We agreed to move code status to DNR/DNI, orders written. we reviewed EOL changes - Discussed changes pt may move through in the dying process including but not limited to sleeping more, disorientation when awake, restlessness, diminished senses/inability to respond to stimulus although ability to be aware of them remains intact longer, changes in body temperatures, skin changes/mottling/cyanosis, respiratory pattern changes, oral secretions. Family verbalized understanding. The goal is to assure a peaceful . (5) Encounter for hospice care discussion: We discussed the goals of hospice as a patient service and the goals of care; we discussed EOL trajectories and transitions clarke the emotional impact of realizing mortality as a concrete reality from prior abstract considerations. Pt was reass ured that no matter where they are along this trajectory, they are not alone - their medical team will remain by their side through their journey. Discussed the pros/cons of accepting help when especially weakened and distressed by pain- which would also help provide relief/decrease caregiver burden/strain.I provided education about the hospice benefit: an interdisciplinary program offered by nurses, nurses aides, social workers, chaplains and a medical grade shoemaker for patients with a terminal condition and a life expectancy of less than 6 months. This is covered by Medicare at 100%/no out of pocket expense to patient and all meds/supplies needed by patient for the reason they are on hospice are paid for/covered by hospice. The goal is assure quality of life of the patient in their home setting (home, [facility], inpatient hospice setting) by providing symptoms management, psychosocial and spiritual support. However, they cannot offer 24 hours care and if the family is unable to provide that care, they will have to consider personal care with out of pocket cost vs. [facility] placement. We discussed the goals of hospice as a patient service and the goals of care; we discussed EOL trajectories and transitions clarke the emotional impact of realizing mortality as a concrete reality from prior abstract considerations. Pt was reassured that no matter where they are along this trajectory, they are not alone - their medical team will remain by their side through their journey. Discussed the pros/cons of accepting help when especially weakened and distressed by pain-which would also help provide relief/decrease caregiver burden/strain. (6) Palliative care by specialist: Met with pt/family. Provided overview of Palliative Medicine, a subspecialty that provides specialized medical care for people living with a serious illness by offering a focus on quality of life. Palliative Medicine is often conflated with hospice: I advised patient/family that Palliative and hospice can be partners but we are not the same. It is important to understand the difference so that we may be informed, and not afraid. Palliative Medicine works to improve QOL through reduction of symptom burden/more control over their illness, for both the patient and family. Palliative medicine clinicians are board certified, specially-trained and another member of the patient's medical care team. We often provide an extra layer of support because our care is based on the needs of the patient, not the prognosis; as such, it's appropriate at any age/adva ncing stage of a serious illness and can be provided along with curative treatment. Palliative Medicine clinicians are also trained in advanced communication methodologies, to facilitate complex discussions about advanced illness planning, which are needed to help assure that the treatment choices match the patient's goals, aka delivering Goal Concordant care. Finally, we discussed that hospice is a visiting nurse service that focuses on care delivered at the very end of life for patients with terminal illness, with life expectancy less than 6 month. Plan * Move to comfort care, orders written * Continue tele for now, see if she can keep amiodarone down * Reviewed code status and changed order to DNR/DNI Thank you for allowing us to participate in the ongoing care of this patient. Please don't hesitate to call or page with any additional concerns. Dr. Veronica Guerrero DNP Director, Palliative Care History of Present Illness Reason for Consultation: hospice, [facility] Attending Physician: Eduardo Blanco MD History of Present Illness Sheron is a 72yo female with Mixed malignant Mullerian tumor of uterus, stage IV admitted for worsening cancer pain, dyspnea, declining performance status. She is not a candidate for continued cancer treatment and has been contemplating a shift to more comfort focused care. Palliative medicine has been asked to speak with pt/family about options for care more focused on comfort and quality of life as well as a review of hospice. She is seen at bedside with dtr, 2 close family friends she admits to weakness, fatigue, abd and back pain. tells me her back pain is throughout the back/spine and always present. Dilaudid iv helps but seems to take about an hour to kick in having a lot of trouble taking and tolerating PO, worsening nausea - did not improve with Compazine, prior to this had Zofran without relief. +emesis this morning after meds, had started oral amiodarone and now unsure what was absorbed she would like to return home with hospice. she and family have many questions about the scope of services hospice will offer and share several examples of how their efforts to get home based nursing visits to manage her Merix were met with resistance and so they are worried hospice "will also be another let down, no one wants to help." Allergies Allergy/AdvReac Type Severity Reaction Status Date / Time adhesive tape Allergy Intermediate localized Verified 02/03/23 11:03 skin reddness/irritation latex Allergy Intermediate localized Verified 02/03/23 11:03 skin reddness/irritation aspirin Allergy Mild facial Verified 02/03/23 11:03 flushing ciprofloxacin Allergy Unknown Rash Verified 02/03/23 11:03 Home Medications Medication Instructions Recorded Confirmed Type cholecalciferol (vitamin D3) 25 1,000 units PO QPM 11/09/18 02/13/23 History mcg (1,000 unit) capsule paroxetine HCl 10 mg tablet (Paxil) 10 mg PO QDB #90 tabs 04/08/22 02/13/23 Rx atorvastatin 20 mg tablet 20 mg PO HS #90 tabs 04/29/22 02/13/23 Rx cyanocobalamin (vitamin B-12) 1,000 mcg PO DAILY 06/26/22 02/13/23 History 1,000 mcg tablet (Vitamin B-12) folic acid 400 mcg tablet 0.4 mg PO QPM 06/26/22 02/13/23 History loratadine 10 mg tablet (Claritin) 10 mg PO UD PRN Allergy Symptoms 06/26/22 02/13/23 History omeprazole 20 mg capsule,delayed 20 mg PO QAM #90 caps 09/18/22 02/13/23 Rx release Bifidobacterium infantis 4 mg 4 mg PO DAILY 11/07/22 02/13/23 History capsule (Align) acetaminophen 650 mg 650 mg PO Q8H PRN Pain 11/07/22 02/13/23 History tablet,extended release (Tylenol Arthritis Pain) fluticasone propionate 50 2 spray intranasal HS 11/07/22 02/13/23 History mcg/actuation nasal spray,suspension calcium carbonate 600 mg-vitamin 1 tab PO BID 11/27/22 02/13/23 History D3 10 mcg (400 unit) tablet (Calcium 600 + D(3)) hjkvfegn-hli-djwwps 5 mg-zeaxanth 1 cap PO DAILY 11/27/22 02/13/23 History 1 mg-bilberry 7.5 mg-herbal capsule (Macular Health Formula) multivitamin (Daily Multi-Vitamin 1 tab PO DAILY 11/27/22 02/13/23 History tablet) magnesium oxide See Rx Instructions PO .COMPLEX 12/02/22 02/13/23 History apixaban 5 mg tablet (Eliquis) 5 mg PO BID #180 tabs 12/04/22 02/13/23 Rx clopidogrel 75 mg tablet 75 mg PO QAM #90 tabs 12/04/22 02/13/23 Rx lorazepam 0.5 mg tablet (Ativan) 0.5 mg PO BID PRN anxiety #60 tabs 12/04/22 02/03/23 Rx allopurinol 300 mg tablet 300 mg PO DAILY 02/13/23 02/13/23 History prochlorperazine maleate 10 mg 10 mg PO Q6 PRN Nausea 02/13/23 02/13/23 History tablet Patient History Medical History Anemia Anxiety Ascites Benign essential hypertension Chronic interstitial cystitis Chronic reflux esophagitis Depression Endometrial cancer GERD (gastroesophageal reflux disease) History of CVA (cerebrovascular accident) History of DVT of lower extremity left leg History of endometrial cancer Hx of basal cell carcinoma Hyperlipidemia Hypertension Hyponatremia Lethargy Malignant pleural effusion Nausea and vomiting after administration of anesthetic agent Osteopenia Renal failure (ARF), acute on chronic Seasonal allergies 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 S/p hysterectomy 2020 Uterine cancer Surgical History H/O laparoscopy H/O: hysterectomy JELENA with BSO in History of colonoscopy History of cystoscopy History of vascular access device Left chest/below the breast tissue (used for direct chemotherapy to the uterine area in 2019). still inplace. will bring card for current port DOS. Hx of basal cell carcinoma excision Hx of tonsillectomy Port-A-Cath in place (07/02/22) Insertion of Right Internal Jugular Access Port with Fluoroscopy(Right) - Martin Clark DO, FACS Family History (Reviewed 02/16/23 @ 17: by Mitesh Land MD) Mother Hypertension Malignant neoplasm of urinary bladder Denies family history of Ovarian cancer Prostate cancer Myocardial infarction Breast cancer Colorectal cancer Social History (Reviewed 02/16/23 @ by Mitesh Land MD) Smoking Status: Never smoker Tobacco Type: Cigarettes Age Started Using Tobacco: 20; Age Quit Using Tobacco: 22; packs per day: 0.5; Cigarettes Per Day: 10 or less; Second Hand Exposure: No; Do You Dip or Chew Tobacco: No; Hx Alcohol Use: No Hx Substance Use: No Preferred Language: Khmer Communication Ability: Effective Visual Impairment: No Limitations Hearing Ability: Normal Quilt Sewer Required: No Beliefs That Will Affect Care: None marital status: Current Living Situation: Family Current Living Situation Comment: Lives with daughter Gardenia current occupational status: retired How many Children do You have: 2 Feels Safe at Home: Yes Childhood Exposure to Second-Hand Smoke: Yes Diet: regular caffeine: Yes during the past year weight has: remained stable Dental Care, Regularly: Yes Physical Activity Frequency: 3-4 Times per Week Seatbelt Use: always Sunscreen Use: Yes Assistive Devices: Bedside Commode, Glasses, Hospital Bed, Walker and Wheelchair Review of Systems Review of Systems: All systems reviewed & are unremarkable except as noted in Subjective Physical Exam Physical Exam: Resting in bed, semi recline Appears tired, subdued mood resp effort WAL pale, cool to touch abd distended AAOx3 Results & Data Vital Signs (Past 12 Hours) Vital Signs Temp Pulse Pulse Resp BP Pulse Ox O2 Del Method 02/17/23 02:59 36.5 C 83 18 129/84 94 Room Air 02/16/23 23:00 36.4 C L 85 16 116/81 97 Room Air 02/16/23 23:00 83 02/16/23 23:00 Room Air 02/16/23 19:00 36.4 C L 89 18 124/82 94 Room Air Laboratory Results data reviewed Diagnostic Findings data reviewed PG Care Time/CCT Total # of Minutes Spent Total Time Spent with Patient: Total time spent is greater than 50% in coordination of care (as documented) at patient's floor/unit and/or counseling patient: I spent 170 minutes overall addressing this very complex case: 20 in medical data review/discussion with referring provider(s) and/or preparation for the visit including oncology, nursing 40 in direct interaction with the patient 75 Advance Care Planning/Goals of Care discussions as detailed above in note (must be >16min) 15 in subsequent review and synthesis of assessment and plan 20 in communicating with other providers regarding the patient's case: CM, nursing, primary team and oncology Prolonged Care Time Prolonged Care Time: Yes Advanced Care Planning 72434 Advanced Care Planning 30 Min 78515 Advanced Care Planning Additional 30 [place] [address] IN/OBS CONSULT LVL 5,80M Patient Type New History Comprehensive Exam Comprehensive Medical Decision Making High Complexity Diagnoses Cancer related pain G89.3 Weakness generalized R53.1 Dyspnea and respiratory abnormalities R06.00; R06.89 Advanced care planning/counseling discussion Z71.89 Encounter for hospice care discussion Z71.89 Palliative care by specialist Z51.5 Additional Codes Advanced Care Planning - 80355 Advanced Care Planning 30 Min: 99300 Advanced Care Planning 30 Min ([id number]) Advanced Care Planning - 43319 Advanced Care Planning Additional 30 Min: 34576 Advanced Care Planning Additional 30 Min ([id number]) Prolonged Care Time - Prolonged Care Time: Yes ([id number])
[2023-02-17] MEDS: AMIODARONE 200 MG TAB PO SCH ×2 (07:34→18:33)
[2023-02-17] MEDS: PANTOprazole 40 MG in SYRINGE 0 ML IV SCH (07:35)
[2023-02-17] MEDS: PROCHLORPERAZINE 5 MG in SYRINGE 4 ML IV PRN (07:52)
--- NOTE | 2023-02-17 08:42 | Pulmonology Progress Note ---
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 Patient with a history of bilateral malignant effusions secondary to metastatic uterine cancer. Left Pleurx catheter placed 02/15/[address] Correa. Patient has right-sided Pleurx catheter as well. Will recommend drainage of left pleural effusion every other day and drainage of right effusion as previously scheduled every Thursday and . The more pressing issues are her underlying renal failure which appears to be progressing. She is also quite lethargic which may be a function of her hyponatremia and uremia. I reviewed the previous notes from oncology and nephrology and it appears that the patient and family are preferring comfort measures which is appropriate given the severity of her illness. Pulmonary medicine will sign off at this time. Please call with questions. Appreciate the opportunity to participate in the care of this patient. Admission and Anticipated Discharge Date Admission Date: February 13, 2023 Subjective Patient remains lethargic and slow to answer questions. She denies any shortness of breath or cough today. Saturating well on room air. Review of Systems Review of Systems: All systems reviewed & are unremarkable except as noted in HPI & below Physical Exam Physical Exam: Constitutional: No acute distress HEENT: EOMI, PERRLA Respiratory system: Bilateral lower lobe crackles. No increased work of breathing. Bilateral Pleurx catheter sites noted and are currently bandaged without any evidence of leakage or blood CVS: S1-S2 positive, no murmurs or gallops, tachycardia Abdomen: Soft, nontender, tense, nondistended, positive bowel sounds x4 Extremities: +2 pulses bilaterally radialis/ dorsalis pedis, no cyanosis, +2 pitting edema bilateral lower extremity Neuro: Awake alert oriented x3 Psych: Lethargic. Anxious appearing. Alert and oriented x3. G/U: No Navarro Skin: no rashes, warm and dry Lymphatic: no cervical or axillary lymphadenopathy Results & Data Results & Data Vital Signs (Past 12 Hours) Vital Signs Temp Pulse Pulse Resp BP Pulse Ox O2 Del Method 02/17/23 07:36 36.6 C 82 18 119/76 94 Room Air 02/17/23 02:59 36.5 C 83 18 129/84 94 Room Air 02/16/23 23:00 36.4 C L 85 16 116/81 97 Room Air 02/16/23 23:00 83 02/16/23 23:00 Room Air PG Care Time/CCT Total # of Minutes Spent Total Time Spent with Patient: Total time spent is greater than 50% in coordination of care (as documented) at patient's floor/unit and/or counseling patient: Coding Level of Care Code 06758 SUB INP/OBS CARE 25MIN Diagnoses Exertional shortness of breath R06.02 Malignant pleural effusion J91.0 Renal failure (ARF), acute on chronic N17.9; N18.9 Lethargy R53.83
[2023-02-17 09:42] LABS: Calcium 7.5 mg/dl (8.6-10.3); Creatinine Clr Calc Pharmacy 11.6 ml/min; Est GFR (African American) 10.5 ml/min; Potassium 4.6 mmol/L (3.5-5.1)
--- NOTE | 2023-02-17 09:58 | Cardiology Progress Note ---
Date of Service February 17, 2023 Assessment & Plan (1) Atrial flutter with rapid ventricular response: (2) On amiodarone therapy: (3) Anticoagulation adequate: Plan 1. Atrial flutter: She developed atrial flutter shortly after presentation this admission and has remained in 2-1 atrial flutter since. Initially beta-blockade was not helpful for rate control, addition of amiodarone did slow heart rate somewhat but she has remained in atrial flutter with 2-1 AV conduction initially but converted spontaneously to sinus rhythm just before midnight on February 15, 2023. She is now on oral amiodarone although I do not believe is taking it very well due to GI upset. 2. Amiodarone therapy: She is now on oral amiodarone, often the blood level drops with discontinuation of IV amiodarone and before the oral takes effect due to the long half-life of the drug. She may have recurrence, but since she has not as yet I would recommend continuing oral amiodarone if possible, although she may not be able to tolerate it. Since she has significant GI upset which can be aggravated by amiodarone and this might be interfering with oral intake I would consider decreasing to 200 mg twice a day but try to continue it. 3. Anticoagulation: She is on heparin, there probably is no clear role for that at this point. She had relatively brief atrial flutter although has a high risk of recurrence however if she is going to go home on palliative care it may be reasonable to discontinue anticoagulation. If she is going to be continued on anticoagulation I would use Eliquis. Admission and Anticipated Discharge Date Admission Date: February 13, 2023 Subjective On amiodarone she did convert to sinus rhythm, that was on intravenous amiodarone and IV access was an issue therefore the medication was switched to oral on the morning of February 16, 2023. Physical Exam Physical Exam: Minimally responsive today Results & Data Vital Signs (Past 12 Hours) Vital Signs Temp Pulse Pulse Resp BP Pulse Ox O2 Del Method 02/17/23 07:36 36.6 C 82 18 119/76 94 Room Air 02/17/23 02:59 36.5 C 83 18 129/84 94 Room Air 02/16/23 23:00 36.4 C L 85 16 116/81 97 Room Air 02/16/23 23:00 83 02/16/23 23:00 Room Air Laboratory Results Coagulation 02/16/23 02/16/23 Range/Units 11:53 22:40 APTT 100.8 H* 136.7 H* (21.0-31.0) Seconds Comprehensive Metabolic Panel 02/16/23 02/17/23 Range/Units 16:55 08:54 Sodium 125 L 125 L (136-145) mmol/L Potassium 4.8 4.6 (3.5-5.1) mmol/L Chloride 92 L 91 L (98-107) mmol/L Carbon Dioxide 20 L 21 (21-32) mmol/L BUN 69 H 77 H (6-23) mg/dl Creatinine 4.34 H 4.54 H* (0.6-1.2) mg/dl Glucose 106 H 93 (70-99(Fasting)) mg/dl Calcium 7.6 L 7.5 L (8.6-10.3) mg/dl Intake and Output 02/16/23 02/17/23 02/17/23 22:59 06:59 14:59 Intake Total 220 / 3216.633 1332.333 / 3216.633 Output Total 100 / 150 50 / 150 Balance 120 / 3066.633 1282.333 / 3066.633 Intake: IV 100 / 3096.633 1332.333 / 3096.633 Acetaminophen 1,000 mg In 100 100 / 200 ml @ 400 mls/hr IV Q8H PRN Rx#: [id number] Heparin Sodium/Dextrose 25,000 258.583 / 426.883 units In 500 ml @ 750 UNITS/HR 15 mls/hr IV .Q24H CAMMIE Rx#: [id number] Lactated Ringer's 1,000 ml @ 80 0 / 1196 mls/hr IV .[id number] CAMMIE Rx#: [id number] Sodium Bicarbonate 8.4% 75 meq 1073.75 / 1073.75 In Sodium Chloride 0.45 % 1,000 ml @ 75 mls/hr IV .[id number] CAMMIE Rx#:[id number] Oral 120 / 120 Output: Urine Amount (Catheter) 100 / 150 50 / 150 Navarro/Indwelling 100 / 150 50 / 150 Other: Weight 84.8 kg Weight Measurement Method Built in [facility] Diagnostic Findings Telemetry: Sinus rhythm since conversion, some artifact but no recurrence of atrial fibrillation or flutter. PG Care Time/CCT Total # of Minutes Spent Total Time Spent with Patient: Total time spent is greater than 50% in coordination of care (as documented) at patient's floor/unit and/or counseling patient: Coding Level of Care Code 40322 SUB INP/OBS CARE 05/28MIN Diagnoses Atrial flutter with rapid ventricular response I48.92 On amiodarone therapy Z79.899 Anticoagulation adequate Z79.01
[2023-02-17 10:05] LABS: Partial Thromboplastin Ratio 4.4
[2023-02-17 10:28] LABS: Partial Thromboplastin Time 122.7 Seconds (21.0-31.0)
[2023-02-17] MEDS: allopurinoL 300 MG TAB PO SCH (11:46)
[2023-02-17] MEDS: POLYETHYLENE (MIRALAX) 17 GM PACK PO SCH ×2 (11:46→20:15)
[2023-02-17] MEDS ORDERED: fentaNYL 12 MCG/HR TDSY TD SCH (12:15)
[2023-02-17] MEDS ORDERED: LORazepam 2 MG/1 ML VIAL IV PRN (12:21)
--- NOTE | 2023-02-17 13:43 | Urology Progress Note ---
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 POD #2 s/p Cystoscopy with Transurethral Resection of Bladder Tumor Large, Bilateral Ureteral Dilation, Bilateral Retrograde Pyelogram, and Bilateral Ureteral Stent Insertion with Dr. Padilla. Afebrile and hemodynamically stable. Labs reviewed- creatinine up to 4.54 today. Urine culture negative, shows more than 3 types of organisms moderate counts Navarro intact, draining minimal hematuria. Palliative care note reviewed. Patient transitioned to comfort care today. Can continue Navarro catheter for comfort or can remove if preferred. Urology will sign off. Please contact us with any further questions or concerns. Admission and Anticipated Discharge Date Admission Date: February 13, 2023 Subjective Pt examined at bedside. No acute distress. Family at bedside. Navarro intact. Review of Systems Constitutional: as per Subjective / HPI Genitourinary: as per Subjective / HPI Physical Exam Constitutional: no acute distress Respiratory: no respiratory distress and no labored breathing Neurologic: awake Genitourinary: Navarro intact Results & Data Vital Signs (Past 12 Hours) Vital Signs Temp Pulse Resp BP Pulse Ox O2 Del Method 02/17/23 08:00 Room Air 02/17/23 07:36 36.6 C 82 18 119/76 94 Room Air 02/17/23 02:59 36.5 C 83 18 129/84 94 Room Air PG Care Time/CCT Total # of Minutes Spent Total Time Spent with Patient: Total time spent is greater than 50% in coordination of care (as documented) at patient's floor/unit and/or counseling patient: Coding Level of Care Code 25796 SUB INP/OBS CARE 1/25MIN Diagnoses Hematuria R31.9 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
[2023-02-17] MEDS: HEPARIN SODIUM/DEXTROSE 25,000 UNITS/500 ML BAG IV SCH (14:20)
[2023-02-17] MEDS: CHECK fentaNYL PATCH PLACEMENT SCH ×2 (17:28→23:32)
--- NOTE | 2023-02-17 17:37 | Hospitalist Progress Note ---
Date of Service February 17, 2023 Assessment & Plan (1) KISHA (acute kidney injury): Plan: Primarily due to obstruction. POD #1 s/p cystoscopy with evidence of invasion of bladder by her uterine cancer. b/l ureters with hydronephrosis due to the above. s/p ureteral stent placement b/l by Dr Padilla. May have had a component of pre-renal hypoperfusion from recent nausea/vomiting at home leading to poor intake. Navarro now in place. Despite placement of stents and TURBT yesterday along with ongoing supportive care & fluids her creatinine has worsened overnight. She is oliguric. She is 3rd spacing. Palliative care on board. Comfort measures only. (2) Atrial flutter with rapid ventricular response: Plan: s/p institution of amiodarone infusion this weekend. Converted to NSR overnight. Amiodarone infusion had run for nearly 48 hours. Converted to PO amiodarone 400mg BID. Patient is not tolerating amiodarone very well due to GI issues. Vomiting appreciate Dr Worthington's consultation. Plan is to try to do p.o. amiodarone twice daily. If not able to tolerate, will switch to once daily dosing. (3) Malignant pleural effusion: Plan: b/l -- with pleurX catheters s/p placement of Left-sided catheter this admission by Dr Vegas fluid studies from left pleural effusion c/w exudative effusion (4) Hydronephrosis: Plan: b/l 2nd to obstruction from her cancer s/p ureteral stents by Dr Padilla (5) Uterine cancer: Plan: stage 4, with carcinomatosis and distal mets was to have chemotherapy the AM of admission at [facility] but was deferred and she was sent to ER due to her illness Patient has been switched over to comfort measures only. Palliative care on board. (6) History of CVA (cerebrovascular accident): Plan: noted plavix is on hold lipitor is on hold (7) Nausea: Plan: Likely secondary to amiodarone due to intra-abdominal metastatic disease? upper GI in origin? due to KISHA? other? combination? Continue antiemetics (8) History of deep venous thrombosis (DVT) of distal vein of left lower extremity: Plan: LLE in early 2022 has been on Eliquis since then Eliquis on hold due to procedures Discontinue heparin as comfort measures only (9) Benign essential hypertension: Plan: not on meds for such at home (10) Carcinomatosis: Plan: all prior imaging with extensive carcinomatosis see discussions above (11) Hyponatremia: Plan: 2nd to KISHA - worse today Comfort measures only (12) Metabolic acidosis: Plan: Comfort measures only (13) Mixed malignant Mullerian tumor of uterus, stage IV: Plan: as above Plan Comfort measures only. Awaiting pain control. Awaiting control of nausea Admission and Anticipated Discharge Date Admission Date: February 13, 2023 Subjective Patient has now been switched over to comfort measures only. She is not tolerating amiodarone very well due to GI issues. The plan is to try to push for twice a day. However if she does not tolerate, will switch to once daily dosing. Review of Systems Review of Systems: All systems reviewed & are unremarkable except as noted in Subjective Physical Exam Physical Exam: General: Awake, conversant, cachectic with intercostal and bitemporal muscle wasting. Appears comfortable. Accompanied by friends in the room. Behavior: Appropriate, cooperative Results & Data Results & Data Vital Signs (Past 12 Hours) Vital Signs Temp Pulse Resp BP Pulse Ox O2 Del Method 02/17/23 08:00 Room Air 02/17/23 07:36 36.6 C 82 18 119/76 94 Room Air Laboratory Results Abnormal lab results 02/16/23 02/17/23 02/17/23 Range/Units 22:40 08:54 08:54 APTT 136.7 H* 122.7 H* (21.0-31.0) Seconds Sodium 125 L (136-145) mmol/L Chloride 91 L (98-107) mmol/L Anion Gap 13 H (3-11) BUN 77 H (6-23) mg/dl Creatinine 4.54 H* (0.6-1.2) mg/dl Calcium 7.5 L (8.6-10.3) mg/dl PG Care Time/CCT Total # of Minutes Spent Total Time Spent with Patient: Total time spent is greater than 50% in coordination of care (as documented) at patient's floor/unit and/or counseling patient: Coding Level of Care Code 33814 SUB INP/OBS CARE 2/35MIN Diagnoses KISHA (acute kidney injury) N17.9 Atrial flutter with rapid ventricular response I48.92 Malignant pleural effusion J91.0 Hydronephrosis N13.30 Uterine cancer C55 History of CVA (cerebrovascular accident) Z86.73 Nausea R11.0 History of deep venous thrombosis (DVT) of distal vein of left lower extremity Z86.718 Benign essential hypertension I10 Carcinomatosis C80.0 Hyponatremia E87.1 Metabolic acidosis E87.20 Mixed malignant Mullerian tumor of uterus, stage IV C55
[2023-02-17] MEDS: PROCHLORPERAZINE 10 MG in SYRINGE 8 ML IV PRN (19:40)
[2023-02-17] MEDS: PARoxetine HCL 10 MG TAB PO SCH (20:15)
[2023-02-18] MEDS: AMIODARONE 200 MG TAB PO SCH ×2 (08:40→16:40)
[2023-02-18] MEDS: POLYETHYLENE (MIRALAX) 17 GM PACK PO SCH ×2 (08:40→20:12)
[2023-02-18] MEDS: allopurinoL 300 MG TAB PO SCH (08:40)
[2023-02-18] MEDS: CHECK fentaNYL PATCH PLACEMENT SCH ×2 (08:42→16:40)
[2023-02-18] MEDS ORDERED: SODIUM CHLORIDE FLUSH FLUSH SCH (09:00)
[2023-02-18] MEDS ORDERED: [UNRECOGNIZED DRUG - OTHER] FLUSH SCH (09:00)
[2023-02-18] MEDS: HYDROmorphone INJ 0.5 MG/0.5 ML SYR IV PRN ×3 (09:13→21:05)
[2023-02-18] MEDS: PROCHLORPERAZINE 10 MG in SYRINGE 8 ML IV PRN (09:13)
[2023-02-18] MEDS: PARoxetine HCL 10 MG TAB PO SCH (12:21)
--- NOTE | 2023-02-18 16:38 | Hospitalist Progress Note ---
Date of Service February 18, 2023 Assessment & Plan (1) KISHA (acute kidney injury): Plan: Primarily due to obstruction. POD #1 s/p cystoscopy with evidence of invasion of bladder by her uterine cancer. b/l ureters with hydronephrosis due to the above. s/p ureteral stent placement b/l by Dr Padilla. May have had a component of pre-renal hypoperfusion from recent nausea/vomiting at home leading to poor intake. Navarro now in place. Despite placement of stents and TURBT yesterday along with ongoing supportive care & fluids her creatinine has worsened overnight. She is oliguric. She is 3rd spacing. Palliative care on board. Comfort measures only. (2) Atrial flutter with rapid ventricular response: Plan: s/p institution of amiodarone infusion this weekend. Converted to NSR overnight. Amiodarone infusion had run for nearly 48 hours. Converted to PO amiodarone 400mg BID. Patient is not tolerating amiodarone very well due to GI issues. Vomiting I reduced amiodarone to 200 mg p.o. twice daily. However patient had refused it this morning because of nausea. Comfort is our goal (3) Malignant pleural effusion: Plan: b/l -- with pleurX catheters s/p placement of Left-sided catheter this admission by Dr Vegas fluid studies from left pleural effusion c/w exudative effusion (4) Hydronephrosis: Plan: b/l 2nd to obstruction from her cancer s/p ureteral stents by Dr Padilla (5) Uterine cancer: Plan: stage 4, with carcinomatosis and distal mets was to have chemotherapy the AM of admission at [facility] but was deferred and she was sent to ER due to her illness Secondary malignant neoplasm of bladder Patient has been switched over to comfort measures only. Palliative care on board. (6) History of CVA (cerebrovascular accident): Plan: noted plavix is on hold lipitor is on hold (7) Nausea: Plan: Likely secondary to amiodarone due to intra-abdominal metastatic disease? upper GI in origin? due to KISHA? other? combination? Continue antiemetics (8) History of deep venous thrombosis (DVT) of distal vein of left lower extremity: Plan: LLE in early 2022 has been on Eliquis since then Eliquis on hold due to procedures Discontinue heparin as comfort measures only (9) Benign essential hypertension: Plan: not on meds for such at home (10) Carcinomatosis: Plan: all prior imaging with extensive carcinomatosis see discussions above (11) Hyponatremia: Plan: 2nd to KISHA - worse today Comfort measures only (12) Metabolic acidosis: Plan: Comfort measures only (13) Mixed malignant Mullerian tumor of uterus, stage IV: Plan: as above Plan Comfort measures only. Awaiting pain control. Awaiting control of nausea. Likely discharge to home tomorrow with hospice Admission and Anticipated Discharge Date Admission Date: February 13, 2023 Subjective patient appears comfortable. Accompanied by her family at the bedside. Per nurse, she was nauseous earlier, requiring Compazine. She declined to take amiodarone this morning. Review of Systems Review of Systems: All systems reviewed & are unremarkable except as noted in Subjective Physical Exam Physical Exam: General: Awake, conversant, cachectic with intercostal and bitemporal muscle wasting. Appears comfortable. Accompanied by Family in the room. Behavior: Appropriate, cooperative Results & Data Results & Data Vital Signs (Past 12 Hours) Vital Signs Pulse 02/18/23 08:00 85 PG Care Time/CCT Total # of Minutes Spent Total Time Spent with Patient: Total time spent is greater than 50% in coordination of care (as documented) at patient's floor/unit and/or counseling patient: Coding Level of Care Code 55917 SUB INP/OBS CARE 2/35MIN Diagnoses KISHA (acute kidney injury) N17.9 Atrial flutter with rapid ventricular response I48.92 Malignant pleural effusion J91.0 Hydronephrosis N13.30 Uterine cancer C55 History of CVA (cerebrovascular accident) Z86.73 Nausea R11.0 History of deep venous thrombosis (DVT) of distal vein of left lower extremity Z86.718 Benign essential hypertension I10 Carcinomatosis C80.0 Hyponatremia E87.1 Metabolic acidosis E87.20 Mixed malignant Mullerian tumor of uterus, stage IV C55
--- NOTE | 2023-02-18 21:14 | Palliative Care Progress Note ---
Date of Service February 18, 2023 Assessment & Plan (1) Cancer related pain: Plan: Cancer related pain appears to be improved with the addition of a low-dose transdermal fentanyl patch and the utilization of the transdermal modality has reduced the amount of nausea she is experiencing. Additionally, she is tolerating the use of Compazine for nausea and will likely need to continue on this for now. (2) Dyspnea and respiratory abnormalities: (3) Weakness generalized: (4) Palliative care by specialist: (5) Mixed malignant Mullerian tumor of uterus, stage IV: (6) Encounter for end of life care: Cher Holbrook remains on comfort care and is tolerating the comfort care regimen. Cancer related pain and nausea symptom management have improved with changes from yesterday. She is anticipating a home with hospice discharge tomorrow morning at 11 AM. It is noted however that she is becoming progressively weaker and has been sleeping a little bit more today. It may be that yesterday was an end-of-life reality where she had a burst of energy and interactiveness with people. We talked about this at the bedside with her daughter and close family friend.When a person facing the end of life rallies, they seem to become "more stable" - may want to talk or even begin taking PO; this phenomenon is usually seen as a sudden burst of energy before . This period of perking up can be accompanied by such a notable change in mental clarity that is often referred to as terminal lucidity. This change in cognition and behavior goes against everything families learn about the physical signs that the end of life is near. It is important to note that evidence-based data is elusive, if nonexistent. Theories support that it may be a search for a final, strong connection. Also, as organs shut down, they can release a steroid like compound that briefly rouses the body - in the specific case of brain tumors, swelling occurs in the confined space of the skull. The edema shrinks as EOL care patients are weaned off food and drink, waking up the brain a bit. Families and caregivers may grasp at what seems to be a turnaround in our loved ones health and sigh with relief. However, the EOL Rally is a hallmark pre- sign. It is not uncommon for patients to show improvement before : they may want to talk, others may become restless or act as if they need to start preparing for a trip. Others will simply become more relaxed yet remain tuned in to what is going on around them. Still others will show signs of physical stability when, seconds before, they seemed on the verge of letting go. A rally can last for a few moments or even days. Short or long, these temporary improvements can have a profound effect on loved ones who are keeping rosa. Like a moment of clarity for someone who has dementia, a rally is one last opportunity to connect with a loved one. Each persons experience is unique and impossible to predict with total accuracy. Life is full of questions, and some of them simply are not meant to be answered. Read more: [email or web address]//[email or web address]-cgt-sj-hnxv-rallies.html I advised that we would see how patient does the rest of today and overnight. If she is continuing to decline in a steady manner and/or is more lethargic/unarousable tomorrow, then it is not advisable that we transport her home-she could potentially in transport. Family in agreement with this recommendation. Will reassess tomorrow. Please page me with any urgent or symptom management needs. Thank you for allowing us to participate in the ongoing care of this patient. Please don't hesitate to call or page with any additional concerns. Dr. Veronica Guerrero DNP Director, Palliative Care Admission and Anticipated Discharge Date Admission Date: February 13, 2023 Mason Holbrook remains on comfort care. We are anticipating a discharge with home hospice tomorrow morning at 11 AM. She has improved comfort noted by family and reported by her today with the addition of a low-dose transdermal fentanyl patch. She has not been taking much orally but has been drinking a fair amount and feels that this has been both refreshing and tolerable. She did not tolerate her oral medications today. Her urine output is diminishing. She is definitely more tired appearing and has been sleeping more today by her own admission as well as noticed by her family. She is however arousable and interacts with family and visitors as they have been coming to the room and has been appropriate and consistent in her communications with them. Review of Systems Review of Systems: All systems reviewed & are unremarkable except as noted in Subjective Physical Exam Physical Exam: Resting in bed, semi recline Appears tired, subdued mood resp effort WAL pale, cool to touch abd distended AAOx3 Results & Data Vital Signs (Past 12 Hours) Vital Signs Pulse 02/18/23 17:00 95 H PG Care Time/CCT Total # of Minutes Spent Total Time Spent: 70 Total Time Spent with Patient: Total time spent is greater than 50% in coordination of care (as documented) at patient's floor/unit and/or counseling patient: Coding [place] [address] SUB INP/OBS CARE 3/50MIN Patient Type Established History Comprehensive Exam Comprehensive Medical Decision Making High Complexity Diagnoses Cancer related pain G89.3 Dyspnea and respiratory abnormalities R06.00; R06.89 Weakness generalized R53.1 Palliative care by specialist Z51.5 Mixed malignant Mullerian tumor of uterus, stage IV C55 Encounter for end of life care Z51.5
[2023-02-19] MEDS: CHECK fentaNYL PATCH PLACEMENT SCH ×3 (02:16→15:05)
[2023-02-19] MEDS: HYDROmorphone INJ 0.5 MG/0.5 ML SYR IV PRN ×7 (05:26→22:13)
[2023-02-19] MEDS: POLYETHYLENE (MIRALAX) 17 GM PACK PO SCH ×2 (08:26→19:44)
[2023-02-19] MEDS: allopurinoL 300 MG TAB PO SCH (08:26)
[2023-02-19] MEDS: AMIODARONE 200 MG TAB PO SCH ×2 (08:26→15:53)
[2023-02-19] MEDS: PARoxetine HCL 10 MG TAB PO SCH (12:01)
--- NOTE | 2023-02-19 16:27 | Hospitalist Progress Note ---
Date of Service February 19, 2023 Assessment & Plan (1) KISHA (acute kidney injury): Plan: Primarily due to obstruction. POD #1 s/p cystoscopy with evidence of invasion of bladder by her uterine cancer. b/l ureters with hydronephrosis due to the above. s/p ureteral stent placement b/l by Dr Padilla. May have had a component of pre-renal hypoperfusion from recent nausea/vomiting at home leading to poor intake. Navarro now in place. Despite placement of stents and TURBT along with ongoing supportive care & fluids her creatinine has worsened. She is oliguric. She is 3rd spacing. Palliative care on board. Comfort measures only. (2) Atrial flutter with rapid ventricular response: Plan: s/p institution of amiodarone infusion this weekend. Converted to NSR overnight. Amiodarone infusion had run for nearly 48 hours. Converted to PO amiodarone 400mg BID. Patient is not tolerating amiodarone very well due to GI issues. Vomiting Comfort is our goal. Comfort care meds only (3) Malignant pleural effusion: Plan: b/l -- with pleurX catheters s/p placement of Left-sided catheter this admission by Dr Vegas fluid studies from left pleural effusion c/w exudative effusion (4) Hydronephrosis: Plan: b/l 2nd to obstruction from her cancer s/p ureteral stents by Dr Padilla (5) Uterine cancer: Plan: stage 4, with carcinomatosis and distal mets was to have chemotherapy the AM of admission at [facility] but was deferred and she was sent to ER due to her illness Secondary malignant neoplasm of bladder Patient has been switched over to comfort measures only. Palliative care on board. (6) History of CVA (cerebrovascular accident): Plan: noted plavix is on hold lipitor is on hold (7) Nausea: Plan: Likely secondary to amiodarone due to intra-abdominal metastatic disease? upper GI in origin? due to KISHA? other? combination? Continue antiemetics (8) History of deep venous thrombosis (DVT) of distal vein of left lower extremity: Plan: LLE in early 2022 has been on Eliquis since then . Discontinue Eliquis Discontinue heparin as comfort measures only (9) Benign essential hypertension: Plan: not on meds for such at home (10) Carcinomatosis: Plan: all prior imaging with extensive carcinomatosis see discussions above (11) Hyponatremia: Plan: 2nd to KISHA - worse today Comfort measures only (12) Metabolic acidosis: Plan: Comfort measures only (13) Mixed malignant Mullerian tumor of uterus, stage IV: Plan: as above Plan Comfort measures only. not going home With hospice as her condition has declined overnight. will allow the patient to pass in the hospital. Admission and Anticipated Discharge Date Admission Date: February 13, 2023 Subjective overnight, patient's condition declined. Family requested that we do not transfer her today. The request was honored. Review of Systems Review of Systems: Unobtainable due to cognitive status Physical Exam Physical Exam: General: Comatose, cachectic with intercostal and bitemporal muscle wasting. Appears comfortable. Accompanied by family in the room. Results & Data Results & Data Vital Signs (Past 12 Hours) Vital Signs O2 Del Method 02/19/23 08:00 Room Air PG Care Time/CCT Total # of Minutes Spent Total Time Spent with Patient: Total time spent is greater than 50% in coordination of care (as documented) at patient's floor/unit and/or counseling patient: Coding Level of Care Code 35668 SUB INP/OBS CARE 1/25MIN Diagnoses KISHA (acute kidney injury) N17.9 Atrial flutter with rapid ventricular response I48.92 Malignant pleural effusion J91.0 Hydronephrosis N13.30 Uterine cancer C55 History of CVA (cerebrovascular accident) Z86.73 Nausea R11.0 History of deep venous thrombosis (DVT) of distal vein of left lower extremity Z86.718 Benign essential hypertension I10 Carcinomatosis C80.0 Hyponatremia E87.1 Metabolic acidosis E87.20 Mixed malignant Mullerian tumor of uterus, stage IV C55
[2023-02-19] MEDS ORDERED: ATROPINE SULFATE 1% OP SOLN 5 ML BTL SL PRN (18:46)
--- NOTE | 2023-02-19 23:52 | Death Pronouncement Note ---
Date of Service February 19, 2023 Pronouncement Note Admission Date Admission Date: February 13, 2023 Date and Time of Date of : 02/19/23 Time of : 23:25 Contributing Factors (1) KISHA (acute kidney injury): Contributing factors: see discharge summary (2) Atrial flutter with rapid ventricular response: (3) Malignant pleural effusion: (4) Hydronephrosis: (5) Uterine cancer: (6) History of CVA (cerebrovascular accident): (7) Nausea: (8) History of deep venous thrombosis (DVT) of distal vein of left lower extremity: (9) Benign essential hypertension: (10) Carcinomatosis: (11) Hyponatremia: (12) Metabolic acidosis: (13) Mixed malignant Mullerian tumor of uterus, stage IV: Additional Data Confirmation of : no pulse, no respirations, no heart sounds and pupils fixed and dilated Family: at bedside Attending/PCP notified?: Yes Attending physician: Ashia Ferreira MD Was code activated?: No Resident Activity Tracking Resident Involvement: Resident Care Provided Care Provided: Adult Hospital Medicine
--- NOTE | 2023-02-20 08:58 | Discharge Summary ---
Date of Service February 20, 2023 Admission HPI Per Admitting Provider Sheron is seen at the bedside. [facility] from [facility]. Per discussion with patient's oncologist Dr. Almanza prior to direct admission she arrived at [facility] and was scheduled to start Keytruda today for aggressive uterine malignancy. She had had a renal ultrasound performed prior to this, on arrival to [facility] she appeared extremely fatigued, weak, and more washed out than normal. Patient endorsed poor intake for 2 days, lightheadedness, and general malaise. She was found to be mildly tachycardic. She had significant abdominal ascites and reported worsened back pain and shortness of breath along with this. She normally has 4, ascites treated with therapeutic paracentesis with Antwon but this was not able to be performed this week. She has a right-sided Pleurx catheter, is pending placement with a left Pleurx catheter with . She has normal oxygen saturation at time of assessment, but is much more fatigued than normal. She is seen at the bedside. She reports that she has not been eating and drinking well, and has been peeing less than normal. She feels generally extremely fatigued. She is short of breath, this improves slightly with rest but notes she feels a lot of pressure from her abdomen. Normally her nausea/shortness of breath improved nearly completely after paracentesis. She denies fever, chills, sweats. No cough. Her abdomen feels tense and she has back pain, but does not have any new or unusual abdominal pain. She is seen with a friend present. She reports her goals are to improve her strength to be able to tolerate Keytruda. She notes she has been through 2 rounds of chemotherapy in the past and is aware that her cancer is aggressive and that further treatment is likely be challenging on her body, however her current goals are to get strong enough to tolerate chemotherapy with the hope of extending her life. She has started reaching out to providers to discuss with palliative care to help with her multidisciplinary care, but her current goals of care are to pursue treatment rather than palliation. She is aware that palliative care and hospice are elevated but different. Denies tobacco/alcohol/substance use. Full code Admission Exam Per Admitting Provider General: A&Ox3. NAD. Cooperative. HEENT: Atraumatic, normocephalic. Pulm: R pleurx in place. Lung sdiminished bilaterally in the bases. No wheezing. Symmetrical chest rise. No increased work of breathing. No respiratory distress. Cardiac: Regular, tachycardic, -mrg. Radial pulses intact and symmetrical. Abdominal: Distended, +fluid wave. No focal tenderness. No warmth/erythema Ext: Warm, dry Principal Diagnosis Acute kidney injury primarily due to obstruction Stage IV uterine cancer Atrial flutter with rapid ventricular response Malignant pleural effusion with bilateral Pleurx catheters Discharge Exam Not applicable as the patient Discharge Data Allergies Allergy/AdvReac Type Severity Reaction Status Date / Time adhesive tape Allergy Intermediate localized Verified 02/03/23 11:03 skin reddness/irritation latex Allergy Intermediate localized Verified 02/03/23 11:03 skin reddness/irritation aspirin Allergy Mild facial Verified 02/03/23 11:03 flushing ciprofloxacin Allergy Unknown Rash Verified 02/03/23 11:03 Consultations 02/13/23 14:54 Consult Pulmonology Routine 02/14/23 11:00 Consult Urology Routine 02/14/23 15:30 Consult Cardiology Routine 02/15/23 12:34 Consult Anesthesiology Routine 02/16/23 09:10 Consult Oncology Routine 02/16/23 16:01 Consult Nephrology Routine 02/16/23 16:54 Consult Palliative Care Routine Procedures Performed Operation Date: 02/15/23 12:00 Actual Procedures p Cystoscopy, Bilateral Ureteral Dilation, Bilateral Retrograde Pyelogram, and Bilateral Ureteral Stent Insertion(Bilateral) - Mitesh Padilla DO s Transurethral Resection of Bladder Tumor Large, (Bilateral) - Mitesh Padilla DO Ordered Studies 02/13/23 14:54 US abdomen ltd ascites Routine 02/15/23 09:00 FL retrograde includes kub Routine 02/15/23 10:15 US point of care ultrasound Urgent Hospital Course (1) KISHA (acute kidney injury): Primarily due to obstruction. s/p cystoscopy with evidence of invasion of bladder by her uterine cancer. b/l ureters with hydronephrosis due to the above. s/p ureteral stent placement b/l by Dr Padilla. May have had a component of pre-renal hypoperfusion from recent nausea/vomiting at home leading to poor intake. [place] now in place. Despite placement of stents and TURBT along with ongoing supportive care & fluids her creatinine has worsened. patient comfort measures only (2) Atrial flutter with rapid ventricular response: s/p institution of amiodarone infusion this weekend. Amiodarone infusion had run for nearly 48 hours. Converted to PO amiodarone patient with comfort measures (3) Malignant pleural effusion: b/l -- with pleurX catheters s/p placement of Left-sided catheter this admission by Dr Vegas fluid studies from left pleural effusion c/w exudative effusion (4) Hydronephrosis: b/l 2nd to obstruction from her cancer s/p ureteral stents by Dr Padilla (5) Uterine cancer: stage 4, with carcinomatosis and distal mets was to have chemotherapy the AM of admission at [facility] but was deferred and she was sent to ER due to her illness Secondary malignant neoplasm of bladder Patient with comfort measures (6) History of CVA (cerebrovascular accident): noted plavix is on hold lipitor is on hold (7) Nausea: Likely secondary to amiodarone due to intra-abdominal metastatic disease? upper GI in origin? due to KISHA? other? combination? patient with comfort measures (8) History of deep venous thrombosis (DVT) of distal vein of left lower extremity: LLE in early 2022 has been on Eliquis since then . 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 see discussions above (11) Hyponatremia: 2nd to KISHA - worse today Comfort measures only (12) Metabolic acidosis: Comfort measures only (13) Mixed malignant Mullerian tumor of uterus, stage IV: as above Plan patient on comfort measures Total Time Total Time Spent Total Time Spent (In Minutes): 25 Discharge Plan Discharge Items Patient Disposition: Other Date/Time: 02/19/23 23:25 Coding Level of Care Code None Diagnoses KIHSA (acute kidney injury) N17.9 Atrial flutter with rapid ventricular response I48.92 Malignant pleural effusion J91.0 Hydronephrosis N13.30 Uterine cancer C55 History of CVA (cerebrovascular accident) Z86.73 Nausea R11.0 History of deep venous thrombosis (DVT) of distal vein of left lower extremity Z86.718 Benign essential hypertension I10 Carcinomatosis C80.0 Hyponatremia E87.1 Metabolic acidosis E87.20 Mixed malignant Mullerian tumor of uterus, stage IV C55
== END 2023-02-20 00:30 | disposition expired | DRG 660 ==
LOC: 2S 12:03 → SUATTDRO 12:03 → 3W 02-18 21:13